=== PATIENT | male | born 1965 | race Caucasian/White ===

== ENCOUNTER 2020-07-01 12:40 | Emergency (ER) | payer SELFPAY ==
[2020-07-01 13:43] LABS: Absolute Lymphocytes (CBC) 2.1 K/uL (0.7-4.9); Basophils % 0.8 % (0-1.3); Lymphocytes % 26.7 % (15.3-44.8); MPV 8.7 fL (7.6-11.3); Protime INR 0.98; RBC Red Blood Cell Count 5.11 M/uL (4.33-5.43)
[2020-07-01 14:04] LABS: ALT/SGPT 32 U/L (12-78); AST/SGOT 17 U/L (15-37); Albumin 3.8 g/dL (3.4-5.0); Alkaline Phosphatase 83 U/L (45-117); BUN Blood Urea Nitrogen 10 mg/dL (7-18); Bicarbonate 29 mmol/L (21-32); Bilirubin Direct 0.2 mg/dL (0-0.2); Bilirubin Total 0.9 mg/dL (0.2-1.0); Glucose Level 97 mg/dL (74-106); Magnesium 2.2 mg/dL (1.8-2.4); NT PRO-BNP 142 pg/mL (<125); Potassium 4.2 mmol/L (3.5-5.1); Protein, Total 7.7 g/dL (6.4-8.2); Sodium Level 140 mmol/L (136-145); Troponin (Emerg Dept Use Only) < 0.02 ng/mL (0.0-0.045)
--- NOTE | 2020-07-01 14:19 | RAD REPORT ---
EXAM DESCRIPTION: CT - Head Brain Wo Cont - 07/01/2020 1:45 pm CLINICAL HISTORY: NUMBNESS COMPARISON: No comparisons TECHNIQUE: Axial 5 mm thick images of the head were obtained without IV contrast. All CT scans are performed using dose optimization technique as appropriate and may include automated exposure control or mA/KV adjustment according to patient size. FINDINGS: No intracranial hemorrhage, mass, edema or shift of mid-line structures. No acute infarcti on changes seen. No abnormal extra-axial fluid collections. Ventricles are normal. Mastoid air cells and visualized portions of the paranasal sinuses are clear. No acute bony findings. IMPRESSION: Negative non-contrast CT head examination. If the patient has continued, unexplained focal neurologic deficit suspicious for acute/subacute CVA, follow-up MRI imaging could be performed.
--- NOTE | 2020-07-01 14:33 | EDPHYS ---
Physician Documentation [facility] Name: Ricardo Hanson Jr Age: 54 yrs Sex: Male : 1965 Arrival Date: 07/01/2020 Time: 12:44 Bed 6 Private MD: ED Physician Armen Bedolla HPI: 07/01 14:36 This 54 yrs old Male presents to ER via Ambulatory with complaints of jr8 Numbness Of Arm. 14:36 The patient's problem is reported as paresthesias, in left upper extremity, in left jr8 lower extremity, in left side of face. Onset: The symptoms/episode began/occurred gradually, 2 week(s) ago. Duration: The episodes are intermittent. The symptoms are alleviated by nothing. The symptoms are aggravated by nothing. Associated signs and symptoms: The patient has no apparent associated signs or symptoms. Severity of symptoms: At their worst the symptoms were mild in the emergency department the symptoms have resolved. Patient's baseline: Neuro: alert and fully oriented, Motor: no deficits, Ambulation: walks without assistance, Speech: normal. The patient has not experienced similar symptoms in the past. The patient has not recently seen a physician. Stated that he has history of uncontrolled HTN and does not know if that is what it is or not . Historical: - Allergies: 12:50 No Known Allergies; hb - Immunization history:: Adult Immunizations up to date. - Social history:: Smoking status: Patient/guardian denies using tobacco, the patient reports quitting approximately 3 years ago. ROS: 14:36 Eyes: Negative for injury, pain, redness, and discharge, ENT: Negative for injury, jr8 pain, and discharge, Neck: Negative for injury, pain, and swelling, Cardiovascular: Negative for chest pain, palpitations, and edema, Respiratory: Negative for shortness of breath, cough, wheezing, and pleuritic chest pain, Abdomen/GI: Negative for abdominal pain, nausea, vomiting, diarrhea, and constipation, Back: Negative for injury and pain, MS/Extremity: Negative for injury and deformity, Skin: Negative for injury, rash, and discoloration. 14:36 Neuro: Positive for numbness. Exam: 14:36 Radiologist reports: No acute findings jr8 14:36 Eyes: Pupils equal round and reactive to light, extra-ocular motions intact. Lids and lashes normal. Conjunctiva and sclera are non-icteric and not injected. Cornea within normal limits. Periorbital areas with no swelling, redness, or edema. ENT: Nares patent. No nasal discharge, no septal abnormalities noted. Tympanic membranes are normal and external auditory canals are clear. Oropharynx with no redness, swelling, or masses, exudates, or evidence of obstruction, uvula midline. Mucous membranes moist. Neck: Trachea midline, no thyromegaly or masses palpated, and no cervical lymphadenopathy. Supple, full range of motion without nuchal rigidity, or vertebral point tenderness. No Meningismus. Cardiovascular: Regular rate and rhythm with a normal S1 and S2. No gallops, murmurs, or rubs. Normal PMI, no JVD. No pulse deficits. Respiratory: Lungs have equal breath sounds bilaterally, clear to auscultation and percussion. No rales, rhonchi or wheezes noted. No increased work of breathing, no retractions or nasal flaring. Abdomen/GI: Soft, non-tender, with normal bowel sounds. No distension or tympany. No guarding or rebound. No evidence of tenderness throughout. Back: No spinal tenderness. No costovertebral tenderness. Full range of motion. Skin: Warm, dry with normal turgor. Normal color with no rashes, no lesions, and no evidence of cellulitis. MS/ Extremity: Pulses equal, no cyanosis. Neurovascular intact. Full, normal range of motion. Neuro: Awake and alert, GCS 15, oriented to person, place, time, and situation. Cranial nerves II-XII grossly intact. Motor strength 5/5 in all extremities. Sensory grossly intact. Cerebellar exam normal. Normal gait. Vital Signs: 12:48 BP 183 / 94; Pulse 73; Resp 16; Temp 99.2(TE); Pulse Ox 100% on R/A; Weight 79.38 kg; hb Height 6 ft. 2 in. (187.96 cm); Pain 0/10; 14:53 BP 156 / 101; Pulse 64; Resp 18; Pulse Ox 100% on R/A; jr10 12:48 Body Mass Index 22.47 (79.38 kg, 187.96 cm) hb NIH Stroke Scale Scores: 13:35 NIHSS Score: 0 jr10 MDM: 13:20 Patient medically screened. jr8 14:31 Data reviewed: vital signs, nurses notes, lab test result(s), EKG, radiologic studies, jr8 CT scan, plain films, and as a result, I will discharge patient. Data interpreted: Pulse oximetry: on room air is 100 %. Interpretation: normal. Counseling: I had a detailed discussion with the patient and/or guardian regarding: the historical points, exam findings, and any diagnostic results supporting the discharge/admit diagnosis, lab results, radiology results, the need for outpatient follow up, a family practitioner, to return to the emergency department if symptoms worsen or persist or if there are any questions or concerns that arise at home. 07/01 13:17 Order name: Basic Metabolic Panel; Complete Time: 14:31 hb 07/01 13:17 Order name: CBC with Diff; Complete Time: 14:03 hb 07/01 13:17 Order name: LFT's; Complete Time: 14:31 hb 07/01 13:17 Order name: Magnesium; Complete Time: 14:31 hb 07/01 13:17 Order name: NT PRO-BNP; Complete Time: 14:31 hb 07/01 13:17 Order name: PT-INR; Complete Time: 14:03 hb 07/01 13:17 Order name: CT Head Brain wo Cont; Complete Time: 14:31 hb 07/01 13:17 Order name: Troponin (emerg Dept Use Only); Complete Time: 14:31 hb 07/01 13:17 Order name: XRAY Chest (1 view); Complete Time: 14:38 hb 07/01 13:17 Order name: EKG; Complete Time: 13:18 hb 07/01 13:17 Order name: Cardiac monitoring; Complete Time: 14:15 hb 07/01 13:17 Order name: EKG - Nurse/Tech; Complete Time: 14:15 hb 07/01 13:17 Order name: IV Saline Lock; Complete Time: 13:32 hb 07/01 13:17 Order name: Labs collected and sent; Complete Time: 13:32 hb 07/01 13:17 Order name: O2 Per Protocol; Complete Time: 13:20 hb 07/01 13:17 Order name: O2 Sat Monitoring; Complete Time: 13:20 hb Administered Medications: No medications were administered Disposition: 17:07 Co-signature as Attending Physician, Armen Bedolla MD I agree with the assessment and kdr plan of care. Disposition: 07/01/20 14:33 Discharged to Home. Impression: Paresthesia of skin, Essential (primary) hypertension. - Condition is Stable. - Discharge Instructions: Hypertension, Paresthesia. - Prescriptions for Lisinopril 20 mg Oral Tablet - take 1 tablet by ORAL route once daily; 20 tablet. - Medication Reconciliation Form, Thank You Letter, Antibiotic Education, Prescription Opioid Use form. - Follow up: Private Physician; When: 2 - 3 days; Reason: Recheck today's complaints, Continuance of care, Re-evaluation by your physician. - Problem is new. - Symptoms have improved. NIH Stroke Scale - NIH Stroke Score Date: 07/01/2020 Time: 13:35 Total Score = 0 1a. Level of Consciousness (LOC) - 0(Alert) 1b. Level of Consciousness (LOC) (Year \T\ Age) - 0(Both) 1c. LOC Commands (Open \T\ Closes Eyes/Yarn Comber) - 0(Both) 2. Best Gaze (Lateral Gaze Paresis) - 0(Normal) 3. Visual Field Loss - 0(No visual loss) 4. Facial Palsy - 0(Normal) 5a. Left Arm: Motor (10-second hold) - 0(No drift) 5b. Right Arm: Motor (10-second hold) - 0(No drift) 6a. Left Leg: Motor (5-second hold - always test supine) - 0(No drift) 6b. Right Leg: Motor (5-second hold - always test supine) - 0(No drift) 7. Limb Ataxia (finger/nose \T\ heel/chand - test with eyes open) - 0(Absent) 8. Sensory Loss (pinprick arms/legs/face) - 0(Normal) 9. Best Language: Aphasia (description/naming/reading) - 0(No aphasia) 10. Dysarthria (speech clarity - read or repeat words) - 0(Normal) 11. Extinction and Inattention (visual/tactile/auditory/spatial/personal) - 0(No abnormality) Initials: jr10 Signatures: Dispatcher [employer] EDMS Armen Bedolla MD MD kdr Roszak, Josh, PA PA jr8 Jessica Stephens RN RN Kallie Barlow RN RN Corrections: (The following items were deleted from the chart) 15:12 14:33 07/01/2020 14:33 Discharged to Home. Impression: Paresthesia of skin; ph Essential (primary) hypertension. Condition is Stable. Forms are Medication Reconciliation Form, Thank You Letter, Antibiotic Education, Prescription Opioid Use. Follow up: Private Physician; When: 2 - 3 days; Reason: Recheck today's complaints, Continuance of care, Re-evaluation by your physician. Problem is new. Symptoms have improved. jr8
--- NOTE | 2020-07-01 14:33 | ER ---
Nurse's Notes [facility] Name: Ricardo Hanson Jr Age: 54 yrs Sex: Male : 1965 Arrival Date: 07/01/2020 Time: 12:44 Bed 6 Private MD: Diagnosis: Paresthesia of skin;Essential (primary) hypertension Presentation: 07/01 12:48 Chief complaint: Intermittent left sided numbness and tingling from the top of his head hb to the left foot x 1 week. VAN NEGATIVE. Coronavirus screen: At this time, the client does not indicate any symptoms associated with coronavirus-19. Ebola Screen: No symptoms or risks identified at this time. Initial Sepsis Screen: Does the patient meet any 2 criteria? No. Patient's initial sepsis screen is negative. Does the patient have a suspected source of infection? No. Patient's initial sepsis screen is negative. Risk Assessment: Do you want to hurt yourself or someone else? Patient reports no desire to harm self or others. Onset of symptoms was June 24, 2020. 12:48 Method Of Arrival: Ambulatory hb 12:48 Acuity: GABRIELLE 3 hb Historical: - Allergies: 12:50 No Known Allergies; hb - Immunization history:: Adult Immunizations up to date. - Social history:: Smoking status: Patient/guardian denies using tobacco, the patient reports quitting approximately 3 years ago. Screenin:18 Abuse screen: Denies threats or abuse. Denies injuries from another. Nutritional hb screening: No deficits noted. Tuberculosis screening: No symptoms or risk factors identified. Fall Risk None identified. 13:35 VAN Screening: Arm Drift: Patient shows no arm weakness. Visual Disturbance: No visual jr10 disturbance noted. Aphasia: No aphasia noted. Neglect: No neglect noted. Assessment: 13:33 General: Appears in no apparent distress. Behavior is calm, cooperative, appropriate jr10 for age. Pain: Denies pain. Neuro: No deficits noted. Level of Consciousness is awake, alert, obeys commands, Oriented to person, place, time, situation, Appropriate for age Plisse Machine Operator Helper are equal bilaterally Moves all extremities. Gait is steady, Speech is normal, Facial symmetry appears normal, Pupils are PERRLA, Intact pt reports intermittent tingling to entire left side of body x1 week, states that episodes occur randomly and resolve on their own. Pt denies any cp, sob, dizziness, visual changes, Syed associated with tingling. Pt denies any s/ at present, states last episode was last night. Cardiovascular: No deficits noted. Denies chest pain, Patient's skin is warm and dry. Pulses are all present. Edema is absent. Rhythm is regular. Respiratory: No deficits noted. Airway is patent Respiratory effort is even, unlabored, Respiratory pattern is regular, symmetrical, Breath sounds are clear bilaterally. GI: No deficits noted. No signs and/or symptoms were reported involving the gastrointestinal system. Patient currently denies nausea. : No deficits noted. No signs and/or symptoms were reported regarding the genitourinary system. EENT: No deficits noted. No signs and/or symptoms were reported regarding the EENT system. Derm: No deficits noted. No signs and/or symptoms reported regarding the dermatologic system. Musculoskeletal: No deficits noted. No signs and/or symptoms reported regarding the musculoskeletal system. 15:08 Reassessment: Patient appears in no apparent distress at this time. Patient and/or ph family updated on plan of care and expected duration. Pain level reassessed. Patient is alert, oriented x 3, equal unlabored respirations, skin warm/dry/pink. Pt d/c home w/ prescriptions. Vital Signs: 12:48 BP 183 / 94; Pulse 73; Resp 16; Temp 99.2(TE); Pulse Ox 100% on R/A; Weight 79.38 kg; hb Height 6 ft. 2 in. (187.96 cm); Pain 0/10; 14:53 BP 156 / 101; Pulse 64; Resp 18; Pulse Ox 100% on R/A; jr10 12:48 Body Mass Index 22.47 (79.38 kg, 187.96 cm) hb NIH Stroke Scale Scores: 13:35 NIHSS Score: 0 10 ED Course: 12:44 Patient arrived in ED. mr 12:50 Triage completed. hb 12:50 Arm band placed on. hb 13:18 Tarik Brito PA is PHCP. hb 13:19 Arely Garcia, MIMA is Primary Nurse. jr 13:33 Patient has correct armband on for positive identification. Bed in low position. Call jr10 light in reach. Side rails up X2. nuclear monitoring technician on. Pulse ox on. NIBP on. 13:33 No provider procedures requiring assistance completed. Inserted saline lock: 20 gauge jr10 in right antecubital area, using aseptic technique. IV is patent, is intact, with good blood return, Flushed. 13:45 CT Head Brain wo Cont In Process Unspecified. EDMS 13:55 XRAY Chest (1 view) In Process Unspecified. EDMS 14:33 Armen Bedolla MD is Attending Physician. jr8 15:12 IV discontinued, intact, bleeding controlled, No redness/swelling at site. Pressure ph dressing applied. Administered Medications: No medications were administered Outcome: 14:33 Discharge ordered by . jr8 15:08 Discharged to home ambulatory. ph 15:08 Condition: good 15:08 Discharge instructions given to patient, Instructed on discharge instructions, follow up and referral plans. medication usage, Demonstrated understanding of instructions, follow-up care, medications, Prescriptions given X 1. 15:12 Patient left the ED. ph NIH Stroke Scale - NIH Stroke Score Date: 07/01/2020 Time: 13:35 Total Score = 0 1a. Level of Consciousness (LOC) - 0(Alert) 1b. Level of Consciousness (LOC) (Year \T\ Age) - 0(Both) 1c. LOC Commands (Open \T\ Closes Eyes/Motion Picture Set Worker) - 0(Both) 2. Best Gaze (Lateral Gaze Paresis) - 0(Normal) 3. Visual Field Loss - 0(No visual loss) 4. Facial Palsy - 0(Normal) 5a. Left Arm: Motor (10-second hold) - 0(No drift) 5b. Right Arm: Motor (10-second hold) - 0(No drift) 6a. Left Leg: Motor (5-second hold - always test supine) - 0(No drift) 6b. Right Leg: Motor (5-second hold - always test supine) - 0(No drift) 7. Limb Ataxia (finger/nose \T\ heel/chand - test with eyes open) - 0(Absent) 8. Sensory Loss (pinprick arms/legs/face) - 0(Normal) 9. Best Language: Aphasia (description/naming/reading) - 0(No aphasia) 10. Dysarthria (speech clarity - read or repeat words) - 0(Normal) 11. Extinction and Inattention (visual/tactile/auditory/spatial/personal) - 0(No abnormality) Initials: jr10 Signatures: Dispatcher [employer] JARRODMS GarciaMachelle mr Tarik Brito PA PA jr8 Jessica Stephens RN RN ph Baxter, Heather, RN RN Arely Garcia RN RN jr10
--- NOTE | 2020-07-01 14:34 | RAD REPORT ---
EXAM DESCRIPTION: RAD - Chest Single View - 07/01/2020 1:55 pm CLINICAL HISTORY: CHEST PAIN COMPARISON: Portable February 2013 TECHNIQUE: AP portable chest image was obtained 07/01/2020 1:55 pm . FINDINGS: Lungs are clear. Interstitial pattern not clearly different from comparison. No new hilar mass or lymphadenopathy. Heart and vasculature are normal. No measurable pleural effusion and no pneu mothorax. No acute bony abnormality seen. No acute aortic findings suspected. IMPRESSION: No acute cardiopulmonary process. No significant change from comparison.
--- NOTE | 2020-07-02 11:12 | EKG ---
Test Date: 2020-07-01 Test Time: 13:52:38 Production Clerks Supervisor: DESMOND MEASUREMENT RESULTS: Intervals: Rate: 64 IN: 144 QRSD: 102 QT: 400 QTc: 412 [place]: P: 50 IN: 144 QRS: 64 T: 49 INTERPRETIVE STATEMENTS: Normal sinus rhythm Normal ECG Compared to ECG 03/28/2013 12:53:27 Incomplete right bundle-branch block no longer present Electronically Signed On 07-02-20 11:10:24 CDT by Vijay Patel
[2020-07-03 07:59] VITALS: TEMP 99.2; O2SAT 100
[2020-07-03 08:00] VITALS: BP 156/101
== END 2020-07-01 15:12 | disposition home or self-care (01) ==
LOC: ER 12:40
DX: I10 Essential (primary) hypertension (principal)
CPT/HCPCS: 36415; 70450; 71045; 80048; 80076; 83735; 83880; 84484; 85025; 85610; 93005; 99284

== ENCOUNTER 2024-09-24 17:06 | Emergency (ER) | payer SELFPAY ==
[2024-09-24] MEDS ORDERED: Calcium Chloride 10% INJ SYR IV ONE (17:07)
[2024-09-24] MEDS ORDERED: EPINEPHrine 1 MG/10 ML SYR IV ONE (17:07)
[2024-09-24] MEDS ORDERED: NA CHLORIDE 0.9% 1,000 ML IV ONE (17:07)
[2024-09-24] MEDS ORDERED: LIDOCAINE 100 MG/5 ML SYRINGE IV ONE (17:07)
[2024-09-24] MEDS ORDERED: D5W 250 ML IV ONE (17:07)
[2024-09-24] MEDS ORDERED: NALOXONE HCL 2 MG/2 ML VIAL IV ONE (17:07)
[2024-09-24] MEDS ORDERED: AMIODARONE HCL 150 MG/3 ML INJ IV ONE (17:07)
--- OUTSIDE RECORDS SUMMARY | 2024-09-24 17:10 | XMS REPORT | Continuity of Care Document ---
Author Name Unknown Address [address] [facility] [address] [place] [address] [facility] Address [address] [facility] [address] [place] [address] Care Team Providers Care Dialysis Social Worker Name Role Phone Fabio Pippa TUBBS Primary Care Physician Chalo LUCERO, Reji Wade Attending Clinician [phone] Ayana Hargrove MD Attending Clinici an Heidy Quiñones MD Attending Clinician + Reji Dykes DO Attending Clinician [phone] Abisai Camacho MD Attending Clinician [phone] Beata LUCERO, Shalini Norton Attending Clinician [phone] ABISAI CAMACHO Attending Clinician Unavailable Natalie Perez Attending Clinician Unavaila ble AYANA HARGROVE Attending Clinician Unavailable Heidy Quiñones MD Admitting Clinician + HEIDY QUIÑONES Admitting Clinician Unav ailable AYANA HARGROVE Admitting Clinician Unavailable Problems Condition Name Condition Details Condition Category Status Onset Date Resolution Date Last Treatment Date Treating Clinician Comments Source Ischemic cardiomyop athy Ischemic cardiomyop athy Disease Active 2023-10 00:00: 00 Huang Reaves CHF (congestiv e heart failure) (CMS/HCC) CHF (congestiv e heart failure) (CMS/HCC) Disease Active 2023-10 00:00: 00 Huang Reaves Thrombocyt openia Thrombocyt openia Disease Active 2023-10 00:00: 00 Huang Reaves Paroxysmal atrial fibrillati on (CMS/HCC) Paroxysmal atrial fibrillati on (CMS/HCC) Disease Active 2023-10 00:00: 00 Huang Reaves Acute systolic congestive heart failure (CMS/HCC) Acute systolic congestive heart failure (CMS/HCC) Disease Active 2023-10 00:00: 00 Huang Reaves 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 angina pectoris Disease Active 2023-10 00:00: 00 Huang Reaves NSTEMI (non-ST elevated myocardial infarction ) (CMS/HCC) NSTEMI (non-ST elevated myocardial infarction ) (CMS/HCC) Disease Active 2023-10 00:00: 00 Huang Reaves HTN (hypertens ion) HTN (hypertens ion) Disease Active 2023-10 00:00: 00 Huang Reaves HLD (hyperlipi demia) HLD (hyperlipi demia) Disease Active 2023-10 00:00: 00 Huang Reaves Cardiogeni c shock Cardiogeni c shock Disease Resolve d 2024-09-21 00:00:00 2024-09-21 10:57:00 Huang Reaves Social History Social Habit Start Date Stop Date Quantity Comments Source Gender identity Corey jose Reaves Sexual orientation [facility] Reaves Tobacco use and exposure 2024-09-11 00:00:00 2024-09-11 00:00:00 Smokeless tobacco non-user [facility] Torey Reaves History of Social function 2024-09-11 00:00:00 2024-09-11 00:00:00 [facility] Torey Reaves Smoking Status Start Date Stop Date Source Never smoked tobacco Huang Reaves Medications Ordered Medication Name Filled Medication Name Start Date Stop Date Current Medication? Ordering Clinician Indication Dosage Frequency Signature (SIG) Comments Components Source aspirin EC 81 MG EC tablet aspirin EC 81 MG EC tablet 2023-10 00:00: 00 09-22 23:59 :00 No 81mg QD Take 1 tablet by mouth 1 time each day. Huang Reaves lisinopril 2.5 MG tablet lisinopril 2.5 MG tablet 2023-10 00:00: 00 09-22 23:59 :00 No 2.5mg QD Take 1 tablet by mouth 1 time each day. Huang Reaves prasugrel (Effient) 10 MG tablet prasugrel (Effient) 10 MG tablet 2023-10 00:00: 00 10-22 23:59 :00 No 10mg QD Take 1 tablet by mouth 1 time each day. Hunag Reaves lisinopril tablet 2.5 mg lisinopril tablet 2.5 mg 2023-10 09:00: 00 Yes 2.5mg QD 2.5 mg, Oral, Daily, First dose on 09/21/24 at 0900, Hold for SBP < 90 mmHg Huang Reaves famotidine (Pepcid) 20 MG tablet famotidine (Pepcid) 20 MG tablet 2023-10 00:00: 00 09-21 23:59 :00 No 20mg Q.5D Take 1 tablet by mouth in the morning and 1 tablet in the evening. Huang Reaves atorvastati n (Lipitor) 80 MG tablet atorvastati n (Lipitor) 80 MG tablet 2023-10 00:00: 00 10-21 23:59 :00 No 80mg Take 1 tablet by mouth at bedtime. Huang Reaves metoprolol tartrate (Lopressor) 25 MG tablet metoprolol tartrate (Lopressor) 25 MG tablet 2023-10 00:00: 00 10-21 23:59 :00 No 12.5mg Q.5D Take 0.5 tablets by mouth in the morning and 0.5 tablets before bedtime. Huang Reaves famotidine (Pepcid) tablet 20 mg famotidine (Pepcid) tablet 20 mg 2023-10 17:00: 00 Yes 20mg Q.5D 20 mg, Oral, 2 times daily, First dose on 09/20/24 at 1700 Huang Reaves prasugrel (Effient) tablet 10 mg prasugrel (Effient) tablet 10 mg 2023-10 09:00: 00 Yes 10mg QD 10 mg, Oral, Daily, First dose on 09/20/24 at 0900, [facility] Huang Reaves ALPRAZolam (Xanax) tablet 0.25 mg ALPRAZolam (Xanax) tablet 0.25 mg 2023-10 08:29: 24 Yes .25mg Q.5D 0.25 mg, Oral, 2 times daily PRN, anxiety, Starting on Citlali 09/18/24 at 0829 Huang Reaves busPIRone (Buspar) tablet 5 mg busPIRone (Buspar) tablet 5 mg 2023-10 15:00: 00 Yes 5mg [id number] 3D 5 mg, Oral, 3 times daily, First dose on Sun09/17/24 at 1500 Huang Reaves LORazepam (Ativan) injection 0.5 mg LORazepam (Ativan) injection 0.5 mg 2023-10 15:00: 00 09-17 15:30 :00 No .5mg 0.5 mg, Intravenou s, Once, On Sun09/17/24 at 1515, For 1 dose Huang Reaves melatonin tablet 6 mg melatonin tablet 6 mg 2023-10 14:15: 05 Yes 6mg QD 6 mg, Oral, Nightly PRN, sleep, Starting on Sun09/17/24 at 1415 Huang Reaves HYDROcodone -acetaminop hen ([place]) 5-325 MG per tablet 1 tablet HYDROcodone -acetaminop hen ([place]) 5-325 MG per tablet 1 tablet 2023-10 14:11: 38 Yes 1{tbl} Q6H 1 tablet, Oral, Every 6 hours PRN, moderate pain (4-6), Starting on Sun09/17/24 at 1411 Huang Reaves sodium chloride (NS) 0.9 % flush 10 mL sodium chloride (NS) 0.9 % flush 10 mL 2023-10 10:45: 00 Yes 10mL Q.5D 10 mL, Intravenou s, Every 12 hours scheduled, First dose on Sun09/17/24 at 1045, [facility], Administer at least once every 12 hours Huang Reaves sodium bicarbonate 25 mEq in dextrose 5 % 1,000 mL infusion sodium bicarbonate 25 mEq in dextrose 5 % 1,000 mL infusion 2023-10 10:45: 00 09-19 19:21 :21 No .1mL/h 0.1-40 mL/hr, Intravenou s, Continuous , Starting on Sun09/17/24 at 1045, Recovery [facility] On Unit, Impella Device Non-hepari n Purge Solution. For use as alternativ e purge solution in patients with Impella device where heparin may be contraindi cated (heparin-i nduced thrombocyt openia, heparin allergy, coagulopat hy, bleeding). If purge flow rate is > 25 mL/hr, increase dextrose concentrat ion in purge solution. System will continue to adjust purge flow rate. If purge flow rate 5 - 25 mL/hr, therapeuti c range - no change. If purge flow rate < 5 mL/hr, contact physician for further instructio ns. Huang Reaves clopidogrel (Plavix) tablet 75 mg clopidogrel (Plavix) tablet 75 mg 2023-10 09:00: 00 09-19 19:37 :46 No 75mg QD 75 mg, Oral, Daily, First dose on Sun09/17/24 at 0900 Huang Reaves clopidogrel (Plavix) tablet 600 mg clopidogrel (Plavix) tablet 600 mg 2023-10 13:30: 00 09-16 14:02 :00 No 600mg 600 mg, Oral, Once, On Sun09/16/24 at 1330, For 1 dose Huang Reaves gabapentin (Neurontin) capsule 300 mg gabapentin (Neurontin) capsule 300 mg 2023-10 08:00: 00 09-16 07:43 :00 No 300mg 300 mg, Oral, Once, On Sun09/16/24 at 0800, For 1 dose Huang Reaves acetaminoph en (Tylenol) tablet 1,000 mg acetaminoph en (Tylenol) tablet 1,000 mg 2023-10 08:00: 00 09-16 07:43 :00 No 1000mg 1,000 mg, Oral, Once, On Sun09/16/24 at 0800, For 1 dose, Max acetaminop hen = 4000mg/day (4gm/day) Huang Reaves metoprolol tartrate (Lopressor) tablet 12.5 mg metoprolol tartrate (Lopressor) tablet 12.5 mg 2023-10 21:00: 00 Yes 12.5mg Q.5D 12.5 mg, Oral, Every 12 hours scheduled, First dose on Sun09/15/24 at 2100 Huang Reaves insulin regular (Myxredlin) 100-0.9 UT/100ML-% infusion (premix) insulin regular (Myxredlin) 100-0.9 UT/100ML-% infusion (premix) 2023-10 12:45: 00 Yes .01U/h 0.01 Units/hr (0.01 mL/hr), Intravenou s, Continuous , Starting on Sun09/15/24 at 1245, On Hold for OR BUD: 30 days at room temperatur e Huang Reaves atorvastati n (Lipitor) tablet 80 mg atorvastati n (Lipitor) tablet 80 mg 2023-10 21:00: 00 Yes 80mg 80 mg, Oral, Nightly, First dose (after last modificati on) on Sun09/13/24 at 2100 Huang Reaves technetium Tc 99m sestamibi (Cardiolite ) radio-isoto pe injection 32 millicurie technetium Tc 99m sestamibi (Cardiolite ) radio-isoto pe injection 32 millicurie 2023-10 11:15: 00 09-12 11:15 :00 No 32mCi 32 millicurie , Intravenou s, Once, On Sun09/12/24 at 1115, For 1 dose Huang Reaves technetium Tc 99m sestamibi (Cardiolite ) radio-isoto pe injection 11 millicurie technetium Tc 99m sestamibi (Cardiolite ) radio-isoto pe injection 11 millicurie 2023-10 08:45: 00 09-12 08:53 :00 No 11mCi 11 millicurie , Intravenou s, Once, On Sun09/12/24 at 0900, For 1 dose Huang Reaves docusate sodium (Colace) capsule 100 mg docusate sodium (Colace) capsule 100 mg 2023-10 17:00: 00 Yes 100mg Q.5D 100 mg, Oral, 2 times daily, First dose on Sun09/11/24 at 1700, Stool softener. Hold for loose stools. Huang Lema Epic levothyroxi ne (Unithroid) 50 MCG tablet levothyroxi ne (Unithroid) 50 MCG tablet 2023-10 16:25: 02 Yes Take by mouth in the morning. Take before meals. Huang Lema Epic dextrose 10 % infusion 125 mL dextrose 10 % infusion 125 mL 2023-10 16:16: 34 Yes 125mL 125 mL, Intravenou s, at 999 mL/hr, As needed, Give 125 mL (12.5 gm) IV PRN for BG 51-69 mg/dL, Starting on Sun09/11/24 at 1616, Administer at rate 999 mL/hr Huang Lema Epic dextrose 10 % infusion 250 mL dextrose 10 % infusion 250 mL 2023-10 16:16: 30 Yes 250mL 250 mL, Intravenou s, at 999 mL/hr, As needed, Give 250 mL (25 gm) IV PRN for BG </= 50 mg/dL, Starting on Sun09/11/24 at 1616, Administer at rate 999 mL/hr Huang Lema Epic sodium chloride (NS) 0.9 % flush 10 mL sodium chloride (NS) 0.9 % flush 10 mL 2023-10 16:15: 00 09-17 19:13 :08 No 10mL Q12H 10 mL, Intravenou s, Every 12 hours, First dose on Sun09/11/24 at 1615, Administer at least once every 12 hours Huang Lema Epic diphenhydrA MINE (BENADryl) liquid 12.5 mg diphenhydrA MINE (BENADryl) liquid 12.5 mg 2023-10 16:12: 22 Yes 12.5mg Q6H Huang Lema Epic ondansetron (Zofran) injection 4 mg ondansetron (Zofran) injection 4 mg 2023-10 16:12: 20 Yes 4mg Q8H Huang Lema Epic sennosides (Senokot) tablet 17.2 mg sennosides (Senokot) tablet 17.2 mg 2023-10 16:12: 18 Yes 2{tbl} QD Huang Lema Epic glucagon injection 1 mg glucagon injection 1 mg 2023-10 16:11: 52 Yes 1mg Huang Lema Epic calcium gluconate in NaCl 100mL IVPB 2 g calcium gluconate in NaCl 100mL IVPB 2 g 2023-10 16:11: 52 Yes 2g Huang Reaves magnesium oxide (Mag-Ox) tablet 800 mg magnesium oxide (Mag-Ox) tablet 800 mg 2023-10 16:11: 52 Yes 800mg 800 mg, Oral, As needed, Abnormal Lab Result, For NON-ICU Patients Only., Starting on Citlali 09/11/24 at 1611, For Magnesium 1.8 - 2.0 mg/dL:? Replace with Magnesium 800 mg PO x 1 dose. For Magnesium 1.5 - 1.7 mg/dL: Replace with Magnesium 800 mg PO every 4 hours x 2 doses. For Magnesium 1.1 - 1.4 mg/dL:? Replace with Magnesium 800 mg PO every 4 hours x 3 doses.? Recheck Magnesium level 4 hours after the end of replacemen t.Notify MD if Magnesium level is < 1.1 mg/dL prior to replacemen t.*Use PO or NJ administra tion unless patient is first 12 hours post-op, active GI bleed, acute arrhythmia s, ischemic bowel or NPO. *DO NOT replace if patient is on dialysis, temperatur e < 35 Celsius, or serum creatinine > 2.0 mg/dL or GFR < 45 mL/min. Huang Lema Epic magnesium sulfate IVPB 4 g magnesium sulfate IVPB 4 g 2023-10 16:11: 52 Yes 4g Huang Lema Epic magnesium sulfate IVPB 2 g magnesium sulfate IVPB 2 g 2023-10 16:11: 52 Yes 2g Huang Reaves magnesium sulfate in D5W IVPB 1 g magnesium sulfate in D5W IVPB 1 g 2023-10 16:11: 52 Yes 1g Huang Lema Epic potassium chloride IVPB 10 mEq potassium chloride IVPB 10 mEq 2023-10 16:11: 51 Yes 10meq Huang Bullardann Epic Potassium chloride solution 20 mEq Potassium chloride solution 20 mEq 2023-10 16:11: 51 Yes 20meq Huang Lema Epic potassium chloride CR (Klor-Con M20) ER tablet 40 mEq potassium chloride CR (Klor-Con M20) ER tablet 40 mEq 2023-10 16:11: 51 Yes 40meq 40 mEq, Oral, As needed, Abnormal Lab Result, NON-ICU Patients Only, Starting on Citlali 09/11/24 at 1611, Evaluate Potassium and Phosphorou s level prior to replacemen t. Potassium replacemen t; phosphorou s > 2.4 mg/dL or phosphorou s level not available: For K = 3.5 - 3.9 mEq/L: Replace with KCL 20 mEq. Recheck Potassium with next scheduled lab. For K = 3.1 - 3.4 mEq/L: Replace with KCL 40 mEq.? Recheck Potassium 4 hours after replacemen t. Potassium and Phosphorou s Replacemen t: For K = 3.5 - 4.5 mEq/L AND Phosphorou s 2 - 2.4 mg/dL:? Replace with 2 packets of Potassium phosphate/ sodium phosphate oral powder x 1 dose. For K = 3.5 - 4.5 mEq/L AND Phosphorou s 1.6 - 1.9 mg/dL:? Replace with 2 packets of Potassium phosphate/ sodium phosphate oral powder Q4H x 2 doses. For K = 3.1 - 3.4 mEq/L AND Phosphorou s 2 - 2.4 mg/dL: Replace with KCL 20 mEq PO/NJ AND Potassium Phosphate 15 mMol IVPB over 4 hours. For K = 3.1 - 3.4 mEq/L AND Phosphorou s 1.6 - 1.9 mg/dL: Replace with Potassium Phosphate 30 mMol IVPB over 4 hours. Recheck Potassium and Phosphorou s levels 4 hours after replacemen t complete.N whitney LUCERO for K < 3.1 mEq/L or Phosphorou s < 1.6 mg/dL prior to replacemen t. *Use PO or NJ administra tion unless patient is first 12 hours post-op, active GI bleed, acute arrhythmia s, ischemic bowel or NPO. Do Not Crush the ER tablets. DO NOT replace if patient is on dialysis, temperatur e < 35 Celsius, or serum creatinine > 2.0 mg/dL or GFR < 45 mL/min. DO NOT CRUSH.? For patients able to take medication s orally or via feeding tube >/= 14 [place], may dissolve each 20 mEq tablet in 4 oz of water.? Allow about 2 minutes for the tablets to disintegra te.? Stir before giving to prepare slurry and administer .? Please exclude patient's with feeding tube less than 14 [place] (Dobhoff, J-tube, etc) and pediatric and patients. Do not crush or chew. Huang Lema Epic potassium chloride CR (Klor-Con M20) ER tablet 20 mEq potassium chloride CR (Klor-Con M20) ER tablet 20 mEq 2023-10 16:11: 51 Yes 20meq Memoria malcolm Lema Epic naloxone (Narcan) injection 0.04 mg naloxone (Narcan) injection 0.04 mg 2023-10 16:11: 51 Yes .04mg Dmitryoria malcolm Lema Epic regadenoson (Lexiscan) injection 0.4 mg regadenoson (Lexiscan) injection 0.4 mg 2023-10 14:01: 49 09-12 13:58 :00 No .4mg 0.4 mg, Intravenou s, Oncall, Starting on Sun09/11/24 at 1401, For 1 dose, To be administer ed during stress test. Dmitryoria malcolm Lema Epic fluticasone (Flonase) nasal spray 2 spray fluticasone (Flonase) nasal spray 2 spray 2023-10 10:30: 00 Yes 2{spray } QD 2 spray, Each Nostril, Daily, First dose on Citlali 09/11/24 at 1030, Shake gently. Before first use, prime pump (press 6 times until fine spray appears). After use, clean tip and replace cap. Memoria l Torey Epic acetaminoph en (Tylenol) tablet 650 mg acetaminoph en (Tylenol) tablet 650 mg 2023-10 22:37: 30 Yes 650mg Q6H 650 mg, Oral, Every 6 hours PRN, mild pain (1-3), Starting on Sun09/10/24 at 2237, Max acetaminop hen = 4000mg/day (4gm/day) Huang Lema Epic sulfur hexafluorid e lipid-type A microsphere s (Lumason) 60.7-25 MG Injectable suspension 2 mL sulfur hexafluorid e lipid-type A microsphere s (Lumason) 60.7-25 MG Injectable suspension 2 mL 2023-10 21:47: 41 09-10 21:47 :00 No 2mL 2 mL, Intravenou s, Once in imaging, Starting on Sun09/10/24 at 2147, For 1 dose, Reconstitu te with 5 mL of PF NS only using provided Mini-Ranjit ; shake vigorously for 20 sec until a homogenous white milky suspension forms. Use immediatel y. May repeat once during procedure. Huang Reaves losartan (Cozaar) tablet 100 mg losartan (Cozaar) tablet 100 mg 2023-10 20:00: 00 09-13 09:33 :47 No 100mg QD 100 mg, Oral, Daily, First dose on Sun09/10/24 at 1999, On hold since Sun09/11/2024 at 1015 until manually unheld Huang Reaves hydroCHLORO thiazide tablet 12.5 mg hydroCHLORO thiazide tablet 12.5 mg 2023-10 20:00: 00 09-13 09:33 :47 No 12.5mg QD 12.5 mg, Oral, Daily, First dose on Sun09/10/24 at 1999, On hold since Sun09/11/2024 at 1015 until manually unheld Huang Reaves amLODIPine (Norvasc) tablet 10 mg amLODIPine (Norvasc) tablet 10 mg 2023-10 20:00: 00 09-13 09:33 :47 No 10mg QD 10 mg, Oral, Daily, First dose on Sun09/10/24 at 2000, On hold since Citlali 09/11/2024 at 1015 until manually unheld Huang Reaves atorvastati n (Lipitor) tablet 20 mg atorvastati n (Lipitor) tablet 20 mg 2023-10 20:00: 00 09-12 11:57 :56 No 20mg QD 20 mg, Oral, Daily, First dose on Sun09/10/24 at 2000 Huang Reaves aspirin EC EC tablet 81 mg aspirin EC EC tablet 81 mg 2023-10 17:45: 00 Yes 81mg QD [Order 1 Start] Name: aspirin EC EC tablet 81 mg Signed Summary: 81 mg, Oral, Daily, First dose on Sun09/10/24 at 1745, Maintenanc e dose. Do not crush, chew, or split. [Order 1 End] [Order 2 Start] Name: aspirin suppositor y 300 mg Signed Summary: 300 mg, Rectal, Daily, First dose on Sun09/10/24 at 1745, Maintenanc e dose. Administer if patient is unable to take aspirin orally or via feeding tube. [Order 2 End] Huang Reaves sodium chloride (NS) 0.9 % flush 10 mL sodium chloride (NS) 0.9 % flush 10 mL 2023-10 17:45: 00 09-17 19:13 :08 No 10mL Q12H 10 mL, Intravenou s, Every 12 hours, First dose on Sun09/10/24 at 1745, Administer at least once every 12 hours Huang Reaves nitroglycer in (Nitrostat) SL tablet 0.4 mg nitroglycer in (Nitrostat) SL tablet 0.4 mg 2023-10 17:33: 03 Yes .4mg 0.4 mg, Sublingual , Every 5 min PRN, chest pain, Starting on Sun09/10/24 at 1733, For 3 doses, May administer up to 3 doses per episode. Huang Lema Epic sodium chloride 0.9 % infusion 250 mL sodium chloride 0.9 % infusion 250 mL 2023-10 17:33: 03 Yes 250mL 250 mL, Intravenou s, As needed, For antibiotic flush to clear line, replace bag every 24 hours., Starting on Sun09/10/24 at 1733 Huang Reaves sodium chloride (NS) 0.9 % flush 10 mL sodium chloride (NS) 0.9 % flush 10 mL 2023-10 17:33: 03 Yes 10mL 10 mL, Intravenou s, As needed, line care, Line Flush, Starting on Sun09/10/24 at 1733 Huang Reaves aspirin chewable tablet 324 mg aspirin chewable tablet 324 mg 2023-10 17:20: 00 09-10 17:36 :00 Yes 324mg 324 mg, Oral, Once, On Sun09/10/24 at 1720, For 1 dose Huang Reaves heparin 50 units/mL in sodium chloride 0.45 % heparin 50 units/mL in sodium chloride 0.45 % 2023-10 17:05: 00 09-19 19:21 :21 No .1U/kg/ h 0.1-40 Units/kg/h r ?90.1 kg (0.1802-72 .08 mL/hr, rounded to 0.18-72.08 mL/hr), Intravenou s, Continuous , Starting on Sun09/10/24 at 1705, Heparin Protocol - ACS PTT Weight Based Calculate heparin boluses and infusion dose using ACTUAL BODY WEIGHT. IV Initial Bolus for ACS 60 units/kg (Max 4,000 units) Start at 12 units/kg/h r (MAX INITIAL INFUSION = 1,000 units/hr = 20 mL/hr) - adjust per ACS Guidelines below Draw baseline PTT. Initiate drip. DO NOT wait for PTT results to start drip. Draw PTT 6 hours after drip initiation and 6 hours after every dose change. Do not draw PTT through line heparin is infused --- Titration Table PTT < 45 sec: IV Bolus = 40 units/kg (Actual Body Weight) (max 5,000 units). INCREASE dose by 4 units/kg/h r. Notify Provider. Draw PTT 6 hours after increase in dose. PTT 45 - 55.9 sec: IV Bolus = 20 units/kg (Actual Body Weight) (max 2,500 units). INCREASE dose by 2 units/kg/h r. Draw PTT 6 hours after increase in dose. PTT 56 - 64.9 sec: INCREASE dose by 2 units/kg/h r (Actual Body Weight). Draw PTT 6 hours after increase in dose. PTT 65 - 85.9 sec: Therapeuti c, continue at same dose. Redraw PTT in 6 hours to confirm. Once 3 consecutiv e therapeuti c PTT, reduce draws to Q12H. PTT 86 - 100.9 sec: DECREASE dose by 1 unit/kg/hr (Actual Body Weight). Draw PTT 6 hours after decrease in dose. PTT 101 - 119.9 sec: HOLD infusion for 45 minutes. DECREASE dose by 2 units/kg/h r (Actual Body Weight). Draw PTT 6 hours after decrease in dose. PTT 120 - 150.9 sec: HOLD infusion for 60 minutes. Notify provider STAT. Then, DECREASE dose by 3 units/kg/h r (Actual Body Weight). Draw PTT 6 hours after decrease in dose. PTT 151 - 199.9 sec: HOLD infusion for 60 minutes. Notify provider STAT. Then, DECREASE dose by 4 units/kg/h r (Actual Body Weight). Draw PTT 6 hours after decrease in dose. PTT >/= 200 sec: HOLD infusion and repeat PTT STAT through venipunctu re or separate line. Notify provider STAT. 1. If repeat PTT < 200 sec, then follow above protocol 2. If repeat PTT >/= 200 sec, then continue to HOLD infusion & repeat PTT every 2 hours until PTT < 120 sec. Then, DECREASE previous dose by 5 units/kg/h r. Draw PTT 6 hours after decrease in dose. --- Huang Reaves heparin 1000 units/mL injection 1,800 Units heparin 1000 units/mL injection 1,800 Units 2023-10 17:01: 22 09-19 19:21 :21 No 20U/kg 1,800 Units (rounded from 1,802 Units = 20 Units/kg ?90.1 kg), Intravenou s, As needed, per current PTT results. For use when PTT 45.0 - 55.9 sec, Starting on Sun09/10/24 at 1701, PRN bolus. ACS Heparin Weight Based Dosing Protocol - PTT. For use when PTT 45 - 55.9 sec: IV Bolus = 20 units/kg (Actual Body Weight) (maximum 2,500 units). INCREASE dose by 2 units/kg/h r. Notify Provider. Draw PTT 6 hours after increase in dose. Huang Reaves heparin 1000 units/mL injection 3,600 Units heparin 1000 units/mL injection 3,600 Units 2023-10 17:01: 22 09-19 19:21 :21 No 40U/kg 3,600 Units (rounded from 3,604 Units = 40 Units/kg ?90.1 kg), Intravenou s, As needed, per current PTT results. For use when PTT < 45.0 sec, Starting on Sun09/10/24 at 1701, PRN bolus. ACS Heparin Weight Based Dosing Protocol - PTT. For use when PTT < 45 sec. IV Bolus = 40 units/kg (Actual Body Weight) (maximum 5,000 units). INCREASE infusion dose by 4 units/kg/h r. Notify Provider. Draw PTT 6 hours after increase in dose. Huang Reaves sodium chloride 0.9 % bolus 1,000 mL sodium chloride 0.9 % bolus 1,000 mL 2023-10 16:20: 00 09-10 17:24 :00 No 1000mL 1,000 mL, Intravenou s, at 1,000 mL/hr, Administer over 1 Hours, Once, On Sun09/10/24 at 1620, For 1 dose Huang Reaves sodium chloride 0.9 % infusion - Pyxis Override Pull sodium chloride 0.9 % infusion - Pyxis Override Pull 2023-10 16:19: 22 09-10 17:24 :00 No Starting on Sun09/10/24 at 1619, For 1 dose, Created by cabinet override Huang Reaves metoprolol tartrate (Lopressor) injection 5 mg metoprolol tartrate (Lopressor) injection 5 mg 2023-10 15:10: 00 09-10 15:14 :00 Yes 5mg 5 mg, Intravenou s, Once, On Sun09/10/24 at 1510, For 1 dose Huang Reaves atorvastati n (Lipitor) 20 MG tablet atorvastati n (Lipitor) 20 MG tablet 2023-10 0-08 00:00: 00 09-21 00:00 :00 No 20mg QD Take 20 mg by mouth 1 time each day. Huang Bullardann [facility] losartan-hy droCHLOROth iazide (Hyzaar) 100-12.5 MG tablet losartan-hy droCHLOROth iazide (Hyzaar) 100-12.5 MG tablet 2023-10 00:00: 00 09-21 00:00 :00 No 1{tbl} QD Take 1 tablet by mouth 1 time each day. Huang malcolm Lema [facility] amLODIPine (Norvasc) 10 MG tablet amLODIPine (Norvasc) 10 MG tablet 2023-10 00:00: 00 09-21 00:00 :00 No 1{tbl} QD Take 1 tablet by mouth 1 time each day. Huang Bullardann [facility] amlodipine 10 mg tablet 03-01 00:00: 00 Yes 1mg Eduard Cerna losartan 100 mg-hydrochl orothiazide 12.5 mg tablet 03-01 00:00: 00 Yes 1mg Eduard Cerna atorvastati n 20 mg tablet 03-01 00:00: 00 Yes 1mg Eduard Cerna levothyroxi ne 50 mcg tablet 03-01 00:00: 00 Yes 1mcg Eduard Cerna TAKE 1 TABLET DAILY. 2022-10 00:00: 00 03-01 00:00 :00 No 20 Eduard Cerna TAKE 1 TABLET DAILY. 2022-10 00:00: 00 03-01 00:00 :00 No 75 Eduard Cerna TAKE 1 TABLET BY MOUTH ONCE A DAY 2022-10 00:00: 00 03-01 00:00 :00 No 10 Eduard Cerna TAKE 1 TABLET DAILY. 2022-10 00:00: 00 03-01 00:00 :00 No [id number] Eduard Cerna TAKE 1 TABLET DAILY. 03-12 00:00: 00 03-01 00:00 :00 No 20 Eduard Cerna TAKE 1 TABLET DAILY. 03-12 00:00: 00 03-01 00:00 :00 No [id number] Eduard Cerna TAKE 1 TABLET BY MOUTH ONCE A DAY 03-12 00:00: 00 03-01 00:00 :00 No 10 Eduard Cerna TAKE 1 TABLET DAILY. 03-12 00:00: 00 03-01 00:00 :00 No 75 Eduard Cerna TAKE 1 TABLET BY MOUTH ONCE A DAY 18 00:00: 00 03-01 00:00 :00 No 10 Eduard Cerna TAKE 1 TABLET BY MOUTH ONCE A DAY 12-16 00:00: 00 03-01 00:00 :00 No 125 Eduard Cerna hydrochloro thiazide 12.5 mg tablet 2020-10 00:00: 00 Yes 1mg Eduard Cerna amlodipine 10 mg tablet 2020-10 00:00: 00 Yes 1mg Eduard Cerna losartan 100 mg tablet 2020-10 0 00:00: 00 Yes 1mg Eduard Cerna aspirin 81 mg chewable tablet 2020-10 00:00: 00 Yes 1mg Eduard Cerna amlodipine 5 mg tablet 2020-10 00:00: 00 Yes 1mg Eduard Cerna levothyroxi ne 75 mcg tablet 2020-10 00:00: 00 Yes 1mcg Eduard Cerna levothyroxi ne 25 mcg tablet 05-16 00:00: 00 Yes 1mcg Eduard Cerna lisinopril 20 mg tablet 05-14 00:00: 00 Yes 1mg Eduard Cerna Vital Signs Vital Name Observation Time Observation Value Comments S ource Heart rate 2024-09-21 07:33:53 78 /min [facility] Oxygen saturation in Arterial blood by Pulse oximetry 2024-09-21 07:33:53 98 /min [facility] Systolic blood pressure 2024-09-21 07:33:37 102 mm[Hg] [facility] Diastolic blood pressure 2024-09-21 07:33:37 62 mm[Hg] [facility] Body temperature 2024-09-21 07:33:[address] [facility] Respiratory rate 2024-09-21 03:33:00 12 /min [facility] Body weight 2024-09-19 05:33:00 92.5 kg Corey rial [place] [facility] BMI 2024-09-19 05:33:00 26.91 kg/m2 Corey ariadnel [facility] Body height 2024-09-17 12:00:00 185.4 cm Corey rial [facility] Heart rate 2024-09-11 11:21:23 73 /min [facility] [place] [facility] Oxygen saturation in Arterial blood by Pulse oximetry 2024-09-11 11:21:23 94 /min [facility] Systolic blood pressure 2024-09-11 11:21:16 93 mm[Hg] [facility] Diastolic blood pressure 2024-09-11 11:21:16 62 mm[Hg] [facility] Body temperature 2024-09-11 11:20:43 37.11 [facility] Epic Respiratory rate 2024-09-11 07:36:01 18 /min [facility] Body height 2024-09-10 17:38:00 185.4 cm [facility] 2024-09-10 17:38:00 90.1 kg Corey jose [place] [facility] BMI 2024-09-10 17:38:00 26.21 kg/m2 Corey rial [place] [facility] Heart rate 2024-09-21 07:33:53 78 /min [facility] [place] [facility] Oxygen saturation in Arterial blood by Pulse oximetry 2024-09-21 07:33:53 98 /min [facility] Systolic blood pressure 2024-09-21 07:33:37 102 mm[Hg] [facility] Diastolic blood pressure 2024-09-21 07:33:37 62 mm[Hg] [facility] Body temperature 2024-09-21 07:33:12 36.56 [facility] Epic Respiratory rate 2024-09-21 03:33:00 12 /min [facility] Body weight 2024-09-19 05:33:00 92.5 kg Corey rial [place] [facility] BMI 2024-09-19 05:33:00 26.91 kg/m2 Corey rial [place] [facility] Body height 2024-09-17 12:00:00 185.4 cm Corey rial [place] Heart rate 2024-09-11 11:21:23 73 /min [facility] [place] [facility] Oxygen saturation in Arterial blood by Pulse oximetry 2024-09-11 11:21:23 94 /min [facility] Systolic blood pressure 2024-09-11 11:21:16 93 mm[Hg] [facility] Diastolic blood pressure 2024-09-11 11:21:16 62 mm[Hg] [facility] Body temperature 2024-09-11 11:20:43 37.11 [facility] Epic Respiratory rate 2024-09-11 07:36:01 18 /min [facility] [place] Body height 2024-09-10 17:38:00 185.4 cm Corey jose [facility] Body weight 2024-09-10 17:38:00 90.1 kg Corey ariadnel [place] [facility] BMI 2024-09-10 17:38:00 26.21 kg/m2 Corey rial [place] Heart rate 2024-09-21 07:33:53 78 /min [facility] [place] [facility] Oxygen saturation in Arterial blood by Pulse oximetry 2024-09-21 07:33:53 98 /min [facility] Systolic blood pressure 2024-09-21 07:33:37 102 mm[Hg] [facility] Diastolic blood pressure 2024-09-21 07:33:37 62 mm[Hg] [facility] Body temperature 2024-09-21 07:33:12 36.56 [facility] Epic Respiratory rate 2024-09-21 03:33:00 12 /min [facility] Body weight 2024-09-19 05:33:00 92.5 kg Corey jose [place] [facility] BMI 2024-09-19 05:33:00 26.91 kg/m2 Corey jose [place] Body height 2024-09-17 12:00:00 185.4 cm Corey rial [place] Heart rate 2024-09-11 11:21:23 73 /min [facility] [place] [facility] Oxygen saturation in Arterial blood by Pulse oximetry 2024-09-11 11:21:23 94 /min [facility] Systolic blood pressure 2024-09-11 11:21:16 93 mm[Hg] [facility] Diastolic blood pressure 2024-09-11 11:21:16 62 mm[Hg] [facility] Body temperature 2024-09-11 11:20:[address] [facility] Respiratory rate 2024-09-11 07:36:01 18 /min [facility] Body height 2024-09-10 17:38:00 185.4 cm Corey garcia [facility] Body weight 2024-09-10 17:38:00 90.1 kg [facility] BMI 2024-09-10 17:38:00 26.21 kg/m2 [facility] Body Temperature 2024-03-01 10:26:00 Eduard F Nehemiah Heart Rate 2024-03-01 10:26:00 Bhavana en F Nehemiah Respiratory Rate 2024-03-01 10:26:00 Eduard F Nehemiah BP Systolic 2024-03-01 10:26:00 Step hen F Nehemiah BP Diastolic 2024-03-01 10:26:00 Maksim phen F Nehemiah Weight Measured 2024-03-01 10:26:00 Eduard F Nehemiah Height Measured 2024-03-01 10:26:00 Eduard F Nehemiah BP Systolic 2023-04-09 14:17:00 171 mm[Hg] Step hen F Nehemiah BP Diastolic 2023-04-09 14:17:00 111 mm[Hg] Maksim phen F Nehemiah Weight Measured 2023-04-09 14:17:00 210.00 pounds Eduard F Nehemiah Height Measured 2023-04-09 14:17:00 73.27 inches Eduard F Nehemiah Body Temperature 2023-04-09 14:17:00 97.60 degrees Eduard F Nehemiah Heart Rate 2023-04-09 14:17:00 73.00 /min Bhavana en F Nehemiah Respiratory Rate 2023-04-09 14:17:00 Eduard F Nehemiah BP Systolic 2023-03-12 08:34:00 169 mm[Hg] Step hen F Nehemiah BP Diastolic 2023-03-12 08:34:00 92 mm[Hg] Maksim phen F Nehemiah Weight Measured 2023-03-12 08:34:00 210.00 pounds Eduard F Nehemiah Height Measured 2023-03-12 08:34:00 73.27 inches Eduard F Nehemiah Body Temperature 2023-03-12 08:34:00 98.30 degrees Eduard F Nehemiah Heart Rate 2023-03-12 08:34:00 77.00 /min Bhavana en F Nehemiah Respiratory Rate 2023-03-12 08:34:00 18.00 /min Eduard F Nehemiah BP Systolic 2022-11-09 09:34:00 160 mm[Hg] Step hen F Nehemiah BP Diastolic 2022-11-09 09:34:00 104 mm[Hg] Maksim phen F Nehemiah Weight Measured 2022-11-09 09:34:00 201.20 pounds Eduard F Nehemiah Height Measured 2022-11-09 09:34:00 73.27 inches Eduard F Nehemiah Body Temperature 2022-11-09 09:34:00 98.20 degrees Eduard F Nehemiah Heart Rate 2022-11-09 09:34:00 85.00 /min Bhavana en F Nehemiah Respiratory Rate 2022-11-09 09:34:00 18.00 /min Eduard F Nehemiah BP Systolic 2021-08-18 16:47:00 155 mm[Hg] Step hen F Nehemiah BP Diastolic 2021-08-18 16:47:00 87 mm[Hg] Maksim phen F Nehemiah Weight Measured 2021-08-18 16:47:00 207.40 pounds Eduard F Nehemiah Height Measured 2021-08-18 16:47:00 73.27 inches Eduard F Nehemiah Body Temperature 2021-08-18 16:47:00 Eduard F Nehemiah Heart Rate 2021-08-18 16:47:00 78.00 /min Bhavana en F Nehemiah Respiratory Rate 2021-08-18 16:47:00 Eduard F Nehemiah Respiratory Rate 2021-08-04 15:25:00 Eduard F Nehemiah BP Systolic 2021-08-04 15:25:00 173 mm[Hg] Step hen F Nehemiah BP Diastolic 2021-08-04 15:25:00 101 mm[Hg] Maksim phen F Nehemiah Weight Measured 2021-08-04 15:25:00 208.20 pounds Eduard F Nehemiah Height Measured 2021-08-04 15:25:00 73.27 inches Eduard F Nehemiah Body Temperature 2021-08-04 15:25:00 Eduard F Nehemiah Heart Rate 2021-08-04 15:25:00 65.00 /min Bhavana en F Nehemiah BP Systolic 2021-05-14 10:29:00 186 mm[Hg] Step hen F Nehemiah BP Diastolic 2021-05-14 10:29:00 97 mm[Hg] Maksim Cerna Weight Measured 2021-05-14 10:29:00 213.40 pounds Eduard Cerna Height Measured 2021-05-14 10:29:00 73.27 inches Eduard Cerna Body Temperature 2021-05-14 10:29:00 98.80 degrees Eduard Cerna Heart Rate 2021-05-14 10:29:00 71.00 /min Bhavanaraimundo Cerna Respiratory Rate 2021-05-14 10:29:00 Eduard Cerna Procedures Procedure Date / Time Performed Performing Clinician Source BASIC METABOLIC PANEL 2024-09-21 06:15:[address] [facility] MAGNESIUM LEVEL 2024-09-21 06:15:00 Brittney Bowser Apr [facility] PHOSPHORUS LEVEL 2024-09-21 06:15:00 Brittney Bowser [facility] COMPLETE BLOOD COUNT W/DIFF AND PLATELET 2024-09-21 06:15:[address] [facility] COMPLETE BLOOD COUNT 2024-09-21 06:15:[address] [facility] AUTOMATED DIFFERENTIAL 2024-09-21 06:15:[address] [facility] BASIC METABOLIC PANEL 2024-09-20 05:17:[address] [facility] MAGNESIUM LEVEL 2024-09-20 05:17:00 Brittney Bowser Apr [facility] PHOSPHORUS LEVEL 2024-09-20 05:17:00 Brittney Bowser [facility] COMPLETE BLOOD COUNT W/DIFF AND PLATELET 2024-09-20 05:17:[address] [facility] COMPLETE BLOOD COUNT 2024-09-20 05:17:[address] [facility] AUTOMATED DIFFERENTIAL 2024-09-20 05:17:[address] [facility] PERC CORONARY INTERVENTION 2024-09-19 19:25:[address] [facility] PTT 2024-09-19 15:50:00 Wyatt Mccarthy [facility] PTT 2024-09-19 08:59:00 Wyatt Mccarthy [facility] TYPE AND SCREEN 2024-09-19 07:16:[address] [facility] BASIC METABOLIC PANEL 2024-09-19 02:44:[address] Lib[address] ey Elidia [facility] MAGNESIUM LEVEL 2024-09-19 02:44:00 [address] Apr il [facility] PHOSPHORUS LEVEL 2024-09-19 02:44:00 Brittney [address] Ap ril [facility] COMPLETE BLOOD COUNT W/DIFF AND PLATELET 2024-09-19 02:44:00 Doug [facility] PTT 2024-09-19 02:44:00 Wyatt Mccarthy [facility] COMPLETE BLOOD COUNT 2024-09-19 02:44:00 Doug [facility] AUTOMATED DIFFERENTIAL 2024-09-19 02:44:00 Doug [facility] PREPARE RBC 2024-09-19 00:50:[address] [facility] Site care 2024-09-19 00:00:00 [facility] PTT 2024-09-18 20:35:00 Wyatt Mccarthy [facility] ECG 12-LEAD 2024-09-18 14:16:21 Rhiannon Whitlock [facility] PTT 2024-09-18 13:33:00 Wyatt Mccarthy [facility] PTT 2024-09-18 06:55:00 Wyatt Mccarthy [facility] COMPLETE BLOOD COUNT W/DIFF AND PLATELET 2024-09-18 04:21:[address] [facility] COMPLETE BLOOD COUNT 2024-09-18 04:21:[address] [facility] AUTOMATED DIFFERENTIAL 2024-09-18 04:21:[address] [facility] COMPREHENSIVE METABOLIC PANEL 2024-09-18 04:20:[address] [facility] MAGNESIUM LEVEL 2024-09-18 04:20:00 Rhiannon Whitlock [facility] PHOSPHORUS LEVEL 2024-09-18 04:20:00 Rhiannon Whitlock [facility] PREPARE FRESH FROZEN PLASMA 2024-09-18 00:49:[address] [facility] PTT 2024-09-18 00:48:00 Wyatt Mccarthy [facility] Complete Blood Count w/Diff and Platelet 2024-09-18 00:00:00 [facility] PTT 2024-09-17 17:41:00 Wyatt Mccarthy [facility] TRANSTHORACIC ECHO (TTE) LIMITED 2024-09-17 14:46:[address] [facility] POC GLUCOSE UNSOLICITED RESULTS 2024-09-17 12:15:[address] [facility] COMPLETE BLOOD COUNT W/DIFF AND PLATELET 2024-09-17 11:15:[address] [facility] PT AND PTT 2024-09-17 11:15:[address] [facility] COMPLETE BLOOD COUNT 2024-09-17 11:15:[address] [facility] AUTOMATED DIFFERENTIAL 2024-09-17 11:15:[address] [facility] PERC CORONARY INTERVENTION 2024-09-17 10:09:[address] [facility] BASIC METABOLIC PANEL 2024-09-17 00:51:[address] [facility] MAGNESIUM LEVEL 2024-09-17 00:51:[address] [facility] COMPLETE BLOOD COUNT W/DIFF AND PLATELET 2024-09-17 00:51:[address] [facility] COMPLETE BLOOD COUNT 2024-09-17 00:51:[address] [facility] AUTOMATED DIFFERENTIAL 2024-09-17 00:51:[address] [facility] PT AND PTT 2024-09-17 00:43:[address] [facility] PTT 2024-09-16 18:25:[address] [facility] PTT 2024-09-16 11:54:[address] [facility] COMPREHENSIVE METABOLIC PANEL 2024-09-16 05:29:[address] [facility] COMPLETE BLOOD COUNT W/DIFF AND PLATELET 2024-09-16 05:29:00 Supriya, Tonja Perla [facility] COMPLETE BLOOD COUNT 2024-09-16 05:29:00 Supriya, Tonja lerma [facility] AUTOMATED DIFFERENTIAL 2024-09-16 05:29:00 Supriya, Tonja Perla [facility] PTT 2024-09-16 05:28:[address] [facility] PTT 2024-09-15 23:10:[address] [facility] PTT 2024-09-15 17:21:00 Amari Dykes [facility] CT CHEST WO IV CONTRAST 2024-09-15 14:30:[address] [facility] TYPE AND SCREEN 2024-09-15 14:06:[address] [facility] POC GLUCOSE UNSOLICITED RESULTS 2024-09-15 11:54:[address] [facility] PTT 2024-09-15 06:41:[address] [facility] COMPLETE BLOOD COUNT W/DIFF AND PLATELET 2024-09-15 05:30:00 Supriya, Tonja Perla [facility] COMPLETE BLOOD COUNT 2024-09-15 05:30:00 Supriya, Tonja lerma [facility] AUTOMATED DIFFERENTIAL 2024-09-15 05:30:00 Supriya, Tonja Perla [facility] BASIC METABOLIC PANEL 2024-09-15 05:29:[address] [facility] Prepare platelet dose: 2 doses Transfusion indications: Hold for surgery 2024-09-15 00:00:00 [facility] PTT 2024-09-14 23:48:[address] [facility] UA WITH CULTURE IF INDICATED 2024-09-14 17:55:[address] [facility] LIPID PANEL W/CALCULATED LDL 2024-09-14 17:53:[address] [facility] PTT 2024-09-14 17:53:00 Amari Dykes [facility] CORONAVIRUS (COVID-19) BERNARDO ICU/ISOLATION 2024-09-14 11:01:[address] [facility] PTT 2024-09-14 10:02:00 Nwoha, Remigio Marshalleze [facility] COMPREHENSIVE METABOLIC PANEL 2024-09-14 02:52:00 Nwoha, Heidy Marie [facility] COMPLETE BLOOD COUNT W/DIFF AND PLATELET 2024-09-14 02:52:00 Supriya, Tonja Amaralu [facility] PTT 2024-09-14 02:52:00 Nwoha, Remigio krysta Cynthia [facility] COMPLETE BLOOD COUNT 2024-09-14 02:52:00 Supriya, Tonja Centeno florentin [facility] AUTOMATED DIFFERENTIAL 2024-09-14 02:52:00 Supriya, Tonja Amaarlu [facility] PTT 2024-09-13 19:34:00 Nwoha, Remigio krysta Cynthia [facility] PTT 2024-09-13 10:31:00 Nwoha, Remigio Marshalleze [facility] EXTRA GREEN TOP 2024-09-13 10:31:00 Nwoha, Remigio chaparro Cynthia [facility] EXTRA TUBES 2024-09-13 10:31:00 Nwoha, Remigio chaparro Cynthia [facility] COMPREHENSIVE METABOLIC PANEL 2024-09-13 06:40:00 Nwoha, Heidy Marie [facility] MAGNESIUM LEVEL 2024-09-13 06:40:[address] [facility] COMPLETE BLOOD COUNT W/DIFF AND PLATELET 2024-09-13 06:40:[address] [facility] COMPLETE BLOOD COUNT 2024-09-13 06:40:[address] [facility] AUTOMATED DIFFERENTIAL 2024-09-13 06:40:[address] [facility] PTT 2024-09-13 02:12:00 Nwoha, Remigio Marie [facility] Basic Metabolic Panel 2024-09-13 00:00:00 [facility] Magnesium Level 2024-09-13 00:00:00 Monroe garces [facility] Complete Blood Count w/Diff and Platelet 2024-09-13 00:00:00 [facility] COMPLETE BLOOD COUNT W/DIFF AND PLATELET 2024-09-12 16:27:00 Supriya, Tonja Perla [facility] PTT 2024-09-12 16:27:00 Nwoha, Remigio Marie [facility] COMPLETE BLOOD COUNT 2024-09-12 16:27:00 Supriya, Tonja lerma [facility] AUTOMATED DIFFERENTIAL 2024-09-12 16:27:00 Supriya, Tonja Perla [facility] TROPONIN I HIGH SENSITIVITY (SINGLE ORDER) 2024-09-12 14:42:00 Supriya, Tonja Amaralu [facility] STRESS TEST, PHARMACOLOGICAL WITH MYOCARDIAL PERFUSION SPECT (MULTI STUDY) 2024-09-12 14:00:[address] [facility] POC GLUCOSE UNSOLICITED RESULTS 2024-09-12 11:49:00 Nwoha, Heidy Marshalleze [facility] EXTRA LAVENDER TOP 2024-09-12 08:01:00 Nwoha, Hugh Marshalleze [facility] EXTRA TUBES 2024-09-12 08:01:00 Nwoha, Remigio chaparro Cynthia [facility] PTT 2024-09-12 08:00:00 Nwoha, Remigio chaparro Cynthia [facility] TROPONIN I HIGH SENSITIVITY (SINGLE ORDER) 2024-09-12 08:00:00 Supriya, Tonja Perla [facility] COMPREHENSIVE METABOLIC PANEL 2024-09-12 02:37:00 Nwoha, Heidy Marshalleze [facility] MAGNESIUM LEVEL 2024-09-12 02:37:[address] [facility] COMPLETE BLOOD COUNT W/DIFF AND PLATELET 2024-09-12 02:37:[address] [facility] PTT 2024-09-12 02:37:00 Nwoha, Remigio Marshalleze [facility] TROPONIN I HIGH SENSITIVITY (SINGLE ORDER) 2024-09-12 02:37:00 Supriya, Tonja Perla [facility] COMPLETE BLOOD COUNT 2024-09-12 02:37:[address] [facility] AUTOMATED DIFFERENTIAL 2024-09-12 02:37:[address] [facility] Troponin I High Sensitivity (Single Order) 2024-09-12 00:00:00 [facility] PTT 2024-09-11 18:29:[address] [facility] TROPONIN I HIGH SENSITIVITY (SINGLE ORDER) 2024-09-11 18:29:[address] [facility] US CAROTID ARTERY DOPPLER BILATERAL 2024-09-11 16:45:[address] [facility] XR CHEST 1 VIEW 2024-09-11 15:39:[address] [facility] TROPONIN I HIGH SENSITIVITY (SINGLE ORDER) 2024-09-11 13:14:00 Supriya, Tonja Perla [facility] POC GLUCOSE UNSOLICITED RESULTS 2024-09-11 11:21:[address] [facility] PTT 2024-09-11 09:33:00 SupriyaTonja soto [facility] TROPONIN I HIGH SENSITIVITY (SINGLE ORDER) 2024-09-11 09:33:00 Supriya, Tonja Perla [facility] COMPLETE BLOOD COUNT W/DIFF AND PLATELET 2024-09-11 03:36:[address] [facility] COMPLETE BLOOD COUNT 2024-09-11 03:36:[address] [facility] AUTOMATED DIFFERENTIAL 2024-09-11 03:36:[address] [facility] PTT 2024-09-11 01:38:00 Supriya, Tonja Perla [facility] TROPONIN I HIGH SENSITIVITY (SINGLE ORDER) 2024-09-11 01:38:00 Supriya, Tonja Perla [facility] Lipid Panel w/calculated LDL 2024-09-11 00:00:00 [facility] CV Viability Stress Test 2024-09-11 00:00:00 [facility] TRANSTHORACIC ECHO (TTE) COMPLETE W/ CONTRAST 2024-09-10 21:47:21 Supriya, Tonja Perla [facility] LEFT HEART CATH 2024-09-10 18:50:[address] [facility] PERC CORONARY INTERVENTION 2024-09-10 18:50:[address] [facility] HEMOGLOBIN A1C 2024-09-10 17:20:[address] [facility] COMPLETE BLOOD COUNT W/DIFF AND PLATELET 2024-09-10 17:20:[address] [facility] PROTIME-INR 2024-09-10 17:20:[address] [facility] PTT 2024-09-10 17:20:[address] [facility] TROPONIN I HIGH SENSITIVITY CARESET (1ST HR) 2024-09-10 17:20:[address] [facility] COMPLETE BLOOD COUNT 2024-09-10 17:20:[address] [facility] AUTOMATED DIFFERENTIAL 2024-09-10 17:20:[address] [facility] ECG 12-LEAD 2024-09-10 17:10:23 Wyatt Mccarthy [facility] TROPONIN I HIGH SENSITIVITY CARESET 2024-09-10 16:22:[address] [facility] TROPONIN I HIGH SENSITIVITY CARESET (BASELINE) 2024-09-10 16:22:[address] [facility] ECG 12-LEAD 2024-09-10 15:14:37 Wyatt Mccarthy [facility] BASIC METABOLIC PANEL 2024-09-10 15:08:[address] [facility] MAGNESIUM LEVEL 2024-09-10 15:08:[address] [facility] PHOSPHORUS LEVEL 2024-09-10 15:08:[address] [facility] COMPLETE BLOOD COUNT W/DIFF AND PLATELET 2024-09-10 15:08:[address] [facility] COMPLETE BLOOD COUNT 2024-09-10 15:08:[address] [facility] AUTOMATED DIFFERENTIAL 2024-09-10 15:08:[address] [facility] NM CRITICAL CARE ILL/INJURED PATIENT INIT [id number] MIN 2024-09-10 14:44:[address] [facility] Site Care 2024-09-10 00:00:00 [facility] NM CABG W/ARTERIAL GRAFT SINGLE ARTERIAL GRAFT Reji Dykes [facility] lead [facility] Encounters Start Date/Time End Date/Time Encounter Type Admission Type Attending [facility] Care Facility Care Department Encounter ID Source 2024-09-10 14:51:00 2024-09-21 14:39:00 Hospital Encounter ChaloReji, Ayana Quiñones, Heidy Dykes, Reji Camacho, Abisai Cota, Shalini [facility] [id number] [facility] 2024-09-10 14:51:00 2024-09-21 14:39:00 Inpatient Emergency ABISAI CAMACHO [facility] General Medicine [id number] [facility] 2024-09-12 00:00:00 2024-09-12 14:37:17 Patient Outreach [place] [id number] [facility] 2024-09-10 14:51:00 2024-09-11 12:10:00 Inpatient Emergency AYANA HARGROVE [facility] General Medicine [id number] [facility] 2024-03-01 10:26:36 2024-03-01 10:26:36 Outpatient [facility] [id number] Eduard F Nehemiah 2024-03-01 00:00:00 2024-03-01 00:00:00 Outpatient Visit [facility] [id number] Eduard Lina Nehemiah 2023-04-09 14:12:04 2023-04-09 14:12:04 Outpatient [facility] [id number] Eduard Lina Nehemiah 2023-03-12 08:31:40 2023-03-12 08:31:40 Outpatient [facility] [id number] Eduard Lina Nehemiah Results Test Description Test Time Test Comments Results Result Co mments Source [facility] [id number] 12:39:43* Test Item Value Reference Range Interpretation Comme nts Ventricular Rate (test code = 2833111743) BPM Atrial Rate (test code = 6361498036) BPM NM Interval (test code = 9007397284) 128 ms QRS Duration (test code = 5205857639) 106 ms QT/QTc (test code = 5239059418) 402 ms QTc Calculation (test code = 9466327242) 440 ms P-Magnolia (test code = 0103654654) degrees R-Magnolia (test code = 9682775220) degrees T-Magnolia (test code = 2574452486) degrees BEA (test code = BEA) PXN (test code = PXN) [facility] [id number] 12:39:17* Test Item Value Reference Range Interpretation Comme nts Ventricular Rate (test code = 8851754805) BPM Atrial Rate (test code = 0025711172) BPM NM Interval (test code = 7269690290) 126 ms QRS Duration (test code = 4639656366) 100 ms QT/QTc (test code = 2382203180) 366 ms QTc Calculation (test code = 3334675060) 408 ms P-Magnolia (test code = 2484599738) degrees R-Magnolia (test code = 8520516233) degrees T-Magnolia (test code = 3593167598) degrees BEA (test code = BEA) PXN (test code = PXN) [facility] EpicPrepare RBC: 4 [id number] 00:50:15* Test Item Value Reference Range Interpretation Comme [facility] Product Code (test code = 25) [id number] Unit Number (test code = 1624) [id number] Unit ABO (test code = 2160290) B Unit RH (test code = 9387121) NEG Crossmatch (test code = 9124432) Compatible Dispense Status (test code = 1623) Released Blood Expiration Date (test code = 530) Product Blood Type (test cod e = 532) Unit Volume (test code = 1322-7) 300 mL [facility]: 2 Units Transfusion indications: Hold for [id number] 00:49:13* Test Item Value Reference Range Interpretation Comme [facility] Product Code (test code = 25) [id number] Unit Number (test code = 1624) [id number] Unit ABO (test code = 7112697) AB Unit RH (test code = 7787887) NEG Dispense Status (test code = 1623) Released Blood Expiration Date (test code = 530) Product Blood Type (test cod e = 532) Unit Volume (test code = 1322-7) [address] [facility] [id number] 19:20:43* Test Item Value Reference Range Interpretation Comme nts BSA (test code = 1677699017) 2.15 m2 Radiology Study observation (narrative) (test code = 98121-4) BEA (test code = BEA) [facility] Dkdvnve0184-07-17 12:45:09* Test Item Value Reference Range Interpretation Comme nts POC Glu (test code = 9317746806) 93 mg/dL 70-99 POC Performing Location (chuy t code = 5102875038) [address] [facility] with myocardial [id number] 18:07:05* Test Item Value Reference Range Interpretation Comme nts Rest Nuclear Isotope Dose (t est code = 6315445913) 11 mCi Stress Nuclear Isotope Dose (test code = 0860001415) 32 mCi Max Age Predicted HR (test c ode = 1183509718) bpm Predicted METS (test code = 5742234736) METS ST Depression (mm) (test cod e = 3542991251) 0 mm EF (%) (test code = 7786416611) 13 % Radiology Study observation (narrative) (test code = 71771-9) BEA (test code = BEA) [facility] [id number] 11:59:02* Test Item Value Reference Range Interpretation Comme nts POC Glu (test code = 6670439611) 102 mg/dL 70-99 H POC Performing Location (chuy t code = 6142924324) 3 ICU Lab Interpretation (test cod e = 28857-0) Abnormal [facility] EpicExtra [id number] 12:01:15* Test Item Value Reference Range Interpretation Comme nts Hold Specimen (test code = 293) Hold for add-ons. Auto resulted. [facility] Tlspmje5827-24-60 11:56:30* Test Item Value Reference Range Interpretation Comme [facility] POC Glu (test code = 1565676214) 108 mg/dL 70-99 H POC Performing Location (chuy t code = 8157605316) 3B GS/Tele Lab Interpretation (test cod e = 09457-4) Abnormal [facility] [id number] 10:01:12* Test Item Value Reference Range Interpretation Comme nts Hold Specimen (test code = 293) Hold for add-ons. Auto resulted. [facility] [id number] 11:46:25* Test Item Value Reference Range Interpretation Comme [facility] POC Glu (test code = 5144827559) 148 mg/dL 70-99 H POC Glu Comment 1 (test code = 7367904423) Notified RN/MD POC Performing Location (chuy t code = 8463874562) 3N Lab Interpretation (test cod e = 12094-8) Abnormal [facility]TTE[facility] [id number] 10:49:42* Test Item Value Reference Range Interpretation Comme [facility] LA Vol I (A4C) BSA (test code = 3088471945) 26.4 ml/m2 LA Vol I BSA (test code = 1312468692) 30.1 ml/m2 LVOT Vmax/AV Vmax (test code = 8520046695) 0.46 {ratio} Ao Root diam diastole (test code = 1331609302) 35 mm LVOT Vmean (test code = 9341499559) 0.3 m/s LA area A4C (test code = 0074039912) 20.4 cm2 LA area A2C (test code = 5741923762) 20.8 cm2 TAPSE (test code = 0834379008) 21 mm LA ESV A2C (test code = 4006359058) 64.450681031882921 mL LA ESV A4C (test code = 3859290960) 64.177505542000886 mL LV est EF (test code = 6760277269) 28 % LA vol index (test code = 9222469414) 29.4 mL/m2 MV A pk ju (test code = 8095586746) 0.53 m/s MV E pk ju (test code = 2161363058) 0.63 m/s AV pk grad (test code = 6698412394) mmHg LV stroke vol (test code = 3973434731) 26 ml AV VTI (test code = 3332721039) 18.8 cm AV pk ju (test code = 4058406804) 1.02 m/s LVOT VTI (test code = 6639679358) 8.4 cm LVOT pk ju (test code = 1766191856) 0.47 m/s LVOT area (test code = 3168217207) 3.14 cm2 LVOT diam (test code = 2497575232) 20 mm MV DT (test code = 3481865956) 156 ms MV e' lateral ju (test code = 0062304030) 10.1 cm/s MV E/A ratio (test code = 8310943002) PV pk grad (test code = 8673575497) mmHg LVOT pk grad (test code = 2087861899) mmHg AV mn grad (test code = 8729696456) mmHg MV E/e' septal (test code = 7616150547) AV area pk ju (test code = 8031707981) 1.45 cm2 AV area cont VTI (test code = 1295720976) 1.41 cm2 LVOT mn grad (test code = 9591559715) mmHg AV mn ju (test code = 0339656584) 0.7 m/s LVPWd (test code = 8623435029) 11 mm LA size (test code = 2735873518) 31 mm LA vol BP (test code = 2466929331) 63.3 ml Fractional Shortening 2D (test code = 2292516959) 13 % LVIDs (test code = 0359785037) 54 mm IVSd (test code = 1684217910) 10 mm LVIDd (test code = 0500635839) 63 mm PV pk ju (test code = 5213893224) 0.75 m/s MV E/e' lateral (test code = 2778229) MV e' septal ju (test code = 6436974) 6.74 cm/s LV ESV 2D (test code = 3551227) 143 mL LV EDV 2D (test code = 2607337) 198 mL IVSd 2D (test code = 5862400) 10.4 cm BSA (test code = 8875356862) 2.15 m2 Radiology Study observation (narrative) (test code = 62196-7) BEA (test code = BEA) [facility] EpicLIPID [id number] 00:00:00* Test Item Value Reference Range Interpretation Comme nts CHOLESTEROL (test code = 2210) 111 MG/DL TRIGLYCERIDES (test code = 2232) 264 MG/DL HDL CHOLESTEROL (test code = 2220) 27 MG/DL CALC LDL CHOL (test code = 2237) 53 MG/DL RISK RATIO LDL/HDL (test cod e = 2238) 1.96 RATIO Eduard CernaHEMOGLOBIN [id number] 00:00:00* Test Item Value Reference Range Interpretation Comme jaja HEMOGLOBIN A1c (test code = 62318) 5.7 % Eduard France THIRD [id number] 00:00:00* Test Item Value Reference Range Interpretation Comme jaja TSH, THIRD GENERATION (test code = 2821) 0.236 UIU/ML Eduard [place] THIRD [id number] 06:35:25* Test Item Value Reference Range Interpretation Comme jaja TSH, THIRD GENERATION (test code = 2821) 5.380 UIU/ML 0.400-4.100 H T4 (THYROXINE)2022-11-10 06:35:25* Test Item Value Reference Range Interpretation Comme jaja T4 (THYROXINE) (test code = 2819) 5.7 UG/DL 4.5-10.5 UNLESS OTHERW ISE INDICATED, ALL TESTING PERFORMED [facility] [address] [place] [address] TUCK POINTER: JAY SMITH M.D. CLIA NUMBER [id number] [facility] [place] [id number] COMPREHENSIVE METABOLIC [id number] 06:23:16* Test Item Value Reference Range Interpretation Comme nts GLUCOSE (test code = 2217) 105 MG/DL 70-99 H BUN (test code = 2208) 13 MG/DL 6-20 CREATININE (test code = 2214) 1.03 MG/DL 0.80-1.40 eGFR (2020 CKD-EPI) (test code = 62129) 85 ML/MIN/1.73 >60 CALC BUN/CREAT (test code = 2235) 13 RATIO 6-28 SODIUM (test code = 2231) 140 MEQ/L 133-146 POTASSIUM (test code = 2228) 4.8 MEQ/L 3.5-5.4 CHLORIDE (test code = 2215) 102 MEQ/L 95-107 CARBON DIOXIDE (test code = 2206) 26 MEQ/L 19-31 CALCIUM (test code = 220) 10.2 MG/DL 8.5-10.5 PROTEIN, TOTAL (test code = 222) 7.5 G/DL 6.1-8.3 ALBUMIN (test code = 220) 4.6 G/DL 3.5-5.2 CALC GLOBULIN (test code = 2240) 2.9 G/DL 1.9-3.7 CALC A/G RATIO (test code = 223) 1.6 RATIO 1.0-2.6 BILIRUBIN, TOTAL (test code = 2206) 1.0 MG/DL See_Comment [Automated me ssage] The system which generated this result transmitted reference range: <=1.2. The reference range was not used to interpret this result as normal/abnormal. ALKALINE PHOSPHATASE (test code = 2203) 89 U/L 40-123 AST (test code = 2217) 13 U/L 9-50 ALT (test code = 221) 14 U/L 5-50 LIPID [id number] 06:23:16* Test Item Value Reference Range Interpretation Comme nts CHOLESTEROL (test code = 2210) 180 MG/DL <200 TRIGLYCERIDES (test code = 2232) 174 MG/DL <150 H HDL CHOLESTEROL (test code = 222) 29 MG/DL >39 L CALC LDL CHOL (test code = 2236) 122 MG/DL <100 H NOTE: CALCULATED LDL IS BASED ON SHANTAL-VALDES METHOD WHICHINCLUDES ADJUSTABLE TRIGLYCERIDE:VLDL CHOLESTEROL RATIO.THIS FACTOR VARIES BY MEASURED TRIGLYCERIDE AND NON-HDLCHOLESTEROL CONCENTRATIONS WITH INCREASED CALCULATED LDL SEENIN HIGHER TRIGLYCERIDE OR LOWER NON-HDL SPECIMENS. FOR MOREINFORMATION, SEE CLIENT ANNOUNCEMENT AT [email or web address] RISK RATIO LDL/HDL (test code = 223) 4.21 RATIO <3.55 H COMPREHENSIVE METABOLIC [id number] 00:00:00* Test Item Value Reference Range Interpretation Comme nts GLUCOSE (test code = 2216) 105 MG/DL BUN (test code = 2207) 13 MG/DL CREATININE (test code = 2214) 1.03 MG/DL eGFR (2020 CKD-EPI) (test co de = 79057) 85 ML/MIN/1.73 CALC BUN/CREAT (test code = 2235) 13 RATIO SODIUM (test code = 2231) 140 MEQ/L POTASSIUM (test code = 2228) 4.8 MEQ/L CHLORIDE (test code = 2215) 102 MEQ/L CARBON DIOXIDE (test code = 2206) 26 MEQ/L CALCIUM (test code = 2209) 10.2 MG/DL PROTEIN, TOTAL (test code = 2229) 7.5 G/DL ALBUMIN (test code = 2201) 4.6 G/DL CALC GLOBULIN (test code = 2240) 2.9 G/DL CALC A/G RATIO (test code = 2234) 1.6 RATIO BILIRUBIN, TOTAL (test code = 2207) 1.0 MG/DL ALKALINE PHOSPHATASE (test code = 2204) 89 U/L AST (test code = 2218) 13 U/L ALT (test code = 2219) 14 U/L Eduard CernaLIPID [id number] 00:00:00* Test Item Value Reference Range Interpretation Comme nts CHOLESTEROL (test code = 2210) 180 MG/DL TRIGLYCERIDES (test code = 2232) 174 MG/DL HDL CHOLESTEROL (test code = 2220) 29 MG/DL CALC LDL CHOL (test code = 2237) 122 MG/DL RISK RATIO LDL/HDL (test cod e = 2238) 4.21 RATIO Eduard CernaTSH, THIRD [id number] 00:00:00* Test Item Value Reference Range Interpretation Comme nts TSH, THIRD GENERATION (test code = 2821) 5.380 UIU/ML Eduard CernaT4 (THYROXINE)2022-11-10 00:00:00* Test Item Value Reference Range Interpretation Comme nts T4 (THYROXINE) (test code = 2819) 5.7 UG/DL Eduard CernaOCCULT BLD,FECAL,IMMUNOASSAY [id number] 00:00:00* Test Item Value Reference Range Interpretation Comme nts OCCULT BLD, FECAL (test code = 61045) NEGATIVE Eduard [id number] 00:00:00* Test Item Value Reference Range Interpretation Comme nts TSH, THIRD GENERATION (test code = 2821) 10.900 UIU/ML Eduard AkersA, [id number] 00:00:00* Test Item Value Reference Range Interpretation Comme nts PSA, TOTAL (test code = 2606) 1.63 NG/ML Eduard CernaLIPID [id number] 00:00:00* Test Item Value Reference Range Interpretation Comme nts CHOLESTEROL (test code = 2210) 159 MG/DL TRIGLYCERIDES (test code = 2232) 204 MG/DL HDL CHOLESTEROL (test code = 2220) 29 MG/DL CALC LDL CHOL (test code = 2237) 98 MG/DL RISK RATIO LDL/HDL (test cod e = 2238) 3.38 RATIO Eduard CernaCOMPREHENSIVE METABOLIC [id number] 00:00:00* Test Item Value Reference Range Interpretation Comme nts GLUCOSE (test code = 2217) 108 MG/DL BUN (test code = 2208) 11 MG/DL CREATININE (test code = 2214) 1.03 MG/DL eGFR AMER. (test cod e = 01919) 95 ML/MIN/1.73 eGFR NON- AMER. (test code = 33343) 82 ML/MIN/1.73 CALC BUN/CREAT (test code = 2235) 11 RATIO SODIUM (test code = 2231) 137 MEQ/L POTASSIUM (test code = 2228) 4.8 MEQ/L CHLORIDE (test code = 2215) 101 MEQ/L CARBON DIOXIDE (test code = 2206) 25 MEQ/L CALCIUM (test code = 2209) 9.3 MG/DL PROTEIN, TOTAL (test code = 2229) 7.3 G/DL ALBUMIN (test code = 2201) 4.7 G/DL CALC GLOBULIN (test code = 2240) 2.6 G/DL CALC A/G RATIO (test code = 2234) 1.8 RATIO BILIRUBIN, TOTAL (test code = 2207) 1.2 MG/DL ALKALINE PHOSPHATASE (test code = 2204) 72 U/L AST (test code = 2218) 17 U/L ALT (test code = 2219) 18 U/L Eduard Cerna Consult Notes Date/Time Note Provider Source 2024-09-17 16:23:01 Consultation Critical Care Medicine Chief Complaint: Chest pain History of present illness: Ricardo Hanson is a 59 y.o. male who has a PMH of HTN and HLD. He presented to the ED with complaints of chest pain and was admitted for NSTEMI. 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 He received PCI to the RCA. He is on MCS in the form an Impella device at P4. The plan is to perform staged PCI in two days to the LAD and circumflex arteries. Past medical history: As above Surgical history: He has no past surgical history on file. Family history: Family History: Problem Relation Name Age of Onset Heart attack Mother 58 Heart attack Father 58 Diabetes Brother Social history: He reports that he has never smoked. He has never used smokeless tobacco. He reports current drug use. Drug: Marijuana. No history on file for alcohol use. Medications: Scheduled Meds: aspirin EC, 81 mg, Oral, Daily Or aspirin, 300 mg, Rectal, Daily atorvastatin, 80 mg, Oral, Nightly busPIRone, 5 mg, Oral, TID clopidogrel, 75 mg, Oral, Daily docusate sodium, 100 mg, Oral, BID fluticasone, 2 spray, Each Nostril, Daily heparin, 4,000 Units, Intravenous, Once metoprolol tartrate, 12.5 mg, Oral, q12h CHAPIN sodium chloride, 10 mL, Intravenous, q12h sodium chloride, 10 mL, Intravenous, q12h sodium chloride, 10 mL, Intravenous, q12h CHAPIN Continuous Meds: dexmedeTOMIDine, 0.2-1.5 mcg/kg/hr EPINEPHrine, 1-35 mcg/min heparin, 0.1-40 Units/kg/hr, Last Rate: 17.1 Units/kg/hr (09/17/24 1111) insulin regular, 0.01 Units/hr norepinephrine, 5-70 mcg/min phenylephrine, 35-350 mcg/min sodium bicarbonate 25 mEq in dextrose 5 % 1,000 mL infusion, 0.1-40 mL/hr, Last Rate: 12.4 mL/hr (09/17/24 1120) PRN Meds: PRN medications: acetaminophen, calcium gluconate, calcium gluconate, dextrose, dextrose, diphenhydrAMINE, glucagon, heparin, heparin, HYDROcodone-acetaminophen, magnesium oxide, magnesium sulfate, magnesium sulfate, magnesium sulfate, melatonin, naloxone, nitroglycerin, ondansetron, potassium & sodium phosphates, potassium chloride, potassium chloride, potassium chloride, Potassium chloride, potassium phosphate, potassium phosphate, sennosides, sodium chloride, sodium chloride, sodium chloride, sodium chloride, sodium phosphate, sodium phosphate Review of systems: Review of Systems Constitutional: Negative. HENT: Negative. Eyes: Negative. Respiratory: Negative. Cardiovascular: Positive for chest pain. Gastrointestinal: Negative. Endocrine: Negative. Genitourinary: Negative. Musculoskeletal: Negative. Skin: Negative. Allergic/Immunologic: Negative. Neurological: Negative. Hematological: Negative. Psychiatric/Behavioral: Negative. Physical exam: Visit Vitals BP (!) 140/103 Pulse 74 Temp 36.3 ?C (97.3 ?F) Resp 23 Ht 1.854 m (6' 0.99") Wt 90.1 kg (198 lb 10.2 oz) SpO2 100% BMI 26.21 kg/m? Smoking Status Never BSA 2.15 m? Body mass index is 26.21 kg/m?. General: NAD ENT: protecting airway Heart: S1 S2 regular Lungs: CTAB Abdomen: soft/NT/ND + BS : wolfe Extremities: no edema no ischemia gangrene Skin: no rashes, no bruises Neurologic: alert & oriented non-lateralizing Laboratory studies: Lab Results Component Value Date WBC 6.92 09/17/2024 Hgb 14.8 09/17/2024 Hct 42.1 09/17/2024 Plt Count 188 09/17/2024 Lab Results Component Value Date Sodium Lvl 138 09/17/2024 Potassium Lvl 4.1 09/17/2024 Chloride Lvl 107 09/17/2024 CO2 Lvl 26.2 09/17/2024 BUN 12 09/17/2024 Creatinine Lvl 0.84 09/17/2024 Glucose Lvl 96 09/17/2024 POC Glu 93 09/17/2024 Lab Results Component Value Date Calcium Lvl 9.1 09/17/2024 Magnesium 2.05 09/17/2024 Lab Results Component Value Date AST 71 (H) 09/16/2024 ALT 69 (H) 09/16/2024 Alkaline Phosphatase 62 09/16/2024 Lab Results Component Value Date PTT 70.9 (H) 09/17/2024 Prothrombin Time (PT) 13.8 09/17/2024 INR 1.04 09/17/2024 Lab Results Component Value Date UA Color Light Yellow 09/14/2024 UA Spec Grav 1.008 09/14/2024 UA pH 5.0 09/14/2024 UA Protein Negative 09/14/2024 UA Glucose Negative 09/14/2024 UA Ketones Negative 09/14/2024 UA Nitrite Negative 09/14/2024 UA Leuk Esterase Negative 09/14/2024 UA Bilirubin Negative 09/14/2024 UA Urobilinogen <=1.0 09/14/2024 No results found for: "CK", "TROPONINT", "TROPONINI", "BNP" No components found for: "HGBA1C;2" No components found for: "TSH;2" Radiology: === 09/10/24 === XR CHEST 1 VIEW - Impression - No acute radiographic abnormality. ELECTRONICALLY SIGNED BY PATIENCE BROWN MD ON 09/11/2024 AT 16:08. Problem list Assessment & Plan Coronary artery disease involving elim ira coronary artery of elim ira heart with unstable angina pectoris (HCC) NSTEMI (non-ST elevated myocardial infarction) ([facility] ([facility]) HTN (hypertension) HLD (hyperlipidemia) Paroxysmal atrial fibrillation ([facility]/HCC) (HCC) Acute systolic congestive heart failure ([facility] ([facility]) Plan ICU care DAPT, high intensity statin Heparin drip MCS with Impella device TTE Heart healthy diet Pain management ICU lines/tube/prophylaxis IV Access: Peripheral IV 09/10/24 Left Antecubital (Active) Peripheral IV 09/10/24 Anterior;Distal;Right;Upper Arm (Active) and Urinary Catheter: Urethral Catheter Temperature probe 16 Fr. (Active) Prophylaxis: DVT - Stress ulcer - Disposition Admit to ICU Code status Code Status: Full Code Attestation I personally evaluated the patient and reviewed the EMR. Requires critical care due to the acute impairment of vital organ systems and a high probability of imminent and life threatening deterioration. CCM time: 32 min Rhiannon Whitlock D.O. Critical Care Medicine [facility] [place] 2024-09-12 11:51:09 CARDIOLOGY INITIAL CONSULT NOTE Reason For Consult: CAD Consulting Physician: Dr. Quiñones History Of Present Illness: Ricardo Hanson is a 59 y.o. year old male patient with a h/o HTN, HLD who presented to the [facility] ER with chest pain, found to have NSTEMI with hsTrop 18K. 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 Echo showed EF 20-25%. He was transferred to [facility] for CABG evaluation. He has been evaluated by CTS and a viability study was requested. There is no modality available to evaluate viability at this facility therefore it was decided to proceed with a lexiscan stress test to evaluate for ischemia. The patient is seen in the [facility] area. He received the lexiscan stress test 1 hour ago which he tolerated. He reports very mild chest pain after return to his room, but nothing as severe as what brought him to the hospital. 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 Physical Exam: 09/11/2024 4:04 PM 09/11/2024 6:59 PM 09/11/2024 7:02 PM 09/11/2024 11:20 PM 09/12/2024 4:31 AM 09/12/2024 7:36 AM 09/12/2024 7:38 AM Vitals Systolic 100 94 101 112 Diastolic 74 57 62 62 Heart Rate 74 68 65 62 Temp 36.9 ?C (98.4 ?F) 36.8 ?C (98.3 ?F) Resp 18 General Appearance: No acute distress Lungs: CTA bilaterally, no wheezes/rales/rhonchi, and good air entry Heart: Regular rate and rhythm Abdomen: Soft nontender Extremities: No c/c/e Neurologic: No focal deficits Current Outpatient Medications Medication Instructions amLODIPine (Norvasc) 10 MG tablet 1 tablet, Daily atorvastatin (LIPITOR) 20 mg, Daily levothyroxine (Unithroid) 50 MCG tablet Daily before breakfast losartan-hydroCHLOROthiazide (Hyzaar) 100-12.5 MG tablet 1 tablet, Daily Assessment and Plan: Ricardo Hanson is a 59 y.o. year old male patient with a h/o HTN, HLD who presented to the [facility] ER with chest pain, found to have NSTEMI with hsTrop 18K. 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 Echo showed EF 20-25%. He was transferred to [facility] for CABG evaluation. Severe MV CAD -cardiac cath 09/10/2024 at [facility] showed proximal LAD SUPERVISOR [employer] EDUCATION with right to left & left to left collaterals, severe proximal CX stenosis, mid RCA SUPER[employer]OR [employer]UCATION with bridging collaterals -echo showed EF 20-25% -pending results of lexiscan stress test (no modality to test viability at this facility) as requested by CT surgery -continue ASA, hep gtt -increase to high intensity statin 2. iCM (EF 20-25%) -will eventually start GDMT as BP tolerates. All meds on hold this morning due to low BP 3. HTN -meds on hold for low BP as above 4. HLD -check lipids Thank you for allowing us to participate in the care of this patient. Please call with any questions or concerns. Dang Soliman MD Interventional Cardiology [facility] 2024-09-11 16:54:31 Images from the original note were not included. [facility] Cardiothoracic and V[facility]- [address], [address] [place] [address] Dept: [phone] Patient: Ricardo Hanson Date of : 1965 Gender: male Cardiothoracic Surgery Consult Note Consulting Physician/Service Dr. Mccarthy Chief Complaint Chest pain History of Present Illness Ricardo Hanson is a 59 y.o. male presenting with worsening chest pain. He states that he was lifting boxes at his job when he felt central chest discomfort with radiation to the left arm and shortness of breath. He states that he has had similar episodes for the past year however this episode the pain lasted longer and did not improve with rest. He presented to the [facility] emergency department where he was found to have a significant elevated troponin. He was taken to the [facility] with a diagnosis of NSTEMI. Left heart cath demonstrated multivessel coronary artery disease including SUPERVISOR AGRICULTURAL EDUCATION of the proximal LAD, SUPERVISOR AGRICULTURAL EDUCATION of the circumflex and SUPERVISOR AGRICULTURAL EDUCATION of the right coronary artery. Transthoracic echo was performed which demonstrated an ejection fraction of 20 to 25% with a left ventricular end-diastolic diameter of 6.25 cm. Trace mitral regurgitation and trace tricuspid regurgitation were noted. Patient is currently lying in bed without any chest pain. Surgery was consulted to evaluate for coronary artery bypass. Review of Systems Review of Systems Constitutional: Negative for activity change, appetite change, chills and fever. Respiratory: Negative for chest tightness and shortness of breath. Cardiovascular: Positive for chest pain, palpitations and leg swelling. Gastrointestinal: Negative for abdominal pain, nausea and vomiting. Musculoskeletal: Negative for myalgias. Skin: Negative for rash. Neurological: Negative for dizziness. Past Medical History Past Medical History: 09/10/2024: HLD (hyperlipidemia) 09/10/2024: HTN (hypertension) Past Surgical History History reviewed. No pertinent surgical history. Social History Social History Social History Narrative Not on file Family History Family History: Problem Relation Name Age of Onset Heart attack Mother 58 Heart attack Father 58 Diabetes Brother Allergies Patient has no known allergies. Medications Medications Prior to Admission Medication Sig Dispense Refill Last Dose/Taking amLODIPine (Norvasc) 10 MG tablet Take 1 tablet by mouth 1 time each day. Past Week atorvastatin (Lipitor) 20 MG tablet Take 20 mg by mouth 1 time each day. Past Week levothyroxine (Unithroid) 50 MCG tablet Take by mouth in the morning. Take before meals. Past Month losartan-hydroCHLOROthiazide (Hyzaar) 100-12.5 MG tablet Take 1 tablet by mouth 1 time each day. 09/10/2024 Morning Current Outpatient Medications Medication Instructions amLODIPine (Norvasc) 10 MG tablet 1 tablet, Daily atorvastatin (LIPITOR) 20 mg, Daily levothyroxine (Unithroid) 50 MCG tablet Daily before breakfast losartan-hydroCHLOROthiazide (Hyzaar) 100-12.5 MG tablet 1 tablet, Daily Scheduled Meds [Held by provider] amLODIPine, 10 mg, Oral, Daily aspirin EC, 81 mg, Oral, Daily Or aspirin, 300 mg, Rectal, Daily atorvastatin, 20 mg, Oral, Daily docusate sodium, 100 mg, Oral, BID fluticasone, 2 spray, Each Nostril, Daily heparin, 4,000 Units, Intravenous, Once [Held by provider] hydroCHLOROthiazide, 12.5 mg, Oral, Daily [Held by provider] losartan, 100 mg, Oral, Daily regadenoson, 0.4 mg, Intravenous, Oncall sodium chloride, 10 mL, Intravenous, q12h sodium chloride, 10 mL, Intravenous, q12h Continuous Meds heparin, 0.1-40 Units/kg/hr, Last Rate: 16 Units/kg/hr (09/11/24 1609) PRN Meds PRN medications: acetaminophen, calcium gluconate, calcium gluconate, dextrose, dextrose, diphenhydrAMINE, glucagon, heparin, heparin, magnesium oxide, magnesium sulfate, magnesium sulfate, magnesium sulfate, naloxone, nitroglycerin, ondansetron, potassium & sodium phosphates, potassium chloride, potassium chloride, potassium chloride, Potassium chloride, potassium phosphate, potassium phosphate, sennosides, sodium chloride, sodium chloride, sodium chloride, sodium phosphate, sodium phosphate VTE Prophylaxis VTE prophyllaxis: heparin - 1000 units/mL, 1000 units/mL, 1000 units/mL, 50 units/mL Physical Exam Last Recorded Vitals Blood pressure 100/74, pulse 74, temperature 37.1 ?C (98.7 ?F), resp. rate 18, height 1.854 m (6' 1"), weight 90.1 kg (198 lb 10.2 oz), SpO2 97%. General: Patient laying supine in bed, no acute distress. HEENT: EOMI, no scleral icterus Neck: trachea midline, no enlargement of thyroid or lymphadenopathy CV: RRR, normal peripheral pulses Resp: Non labored respirations, normal chest wall excursion GI: Abdomen soft, non tender, non distended. No previous scars or hernias. : No CVA tenderness MSK: Moves all 4 extremities normally, no joint swelling Heme: No lymphadenopathy or purpura/petechiae Neuro: Normal motor/sensation throughout, CN 2-12 intact Psych: normal affect, no evidence of depression or anxiety. Labs Lab Results Component Value Date WBC 8.98 09/11/2024 Hgb 14.7 09/11/2024 Hct 41.4 09/11/2024 Plt Count 215 09/11/2024 Lab Results Component Value Date Sodium Lvl 136 09/10/2024 Potassium Lvl 3.6 09/10/2024 Chloride Lvl 101 09/10/2024 CO2 Lvl 28.4 09/10/2024 BUN <7 (L) 09/10/2024 Creatinine Lvl 1.16 09/10/2024 Glucose Lvl 129 (H) 09/10/2024 POC Glu 148 (H) 09/11/2024 Radiology XR chest 1 view Narrative: PROCEDURE INFORMATION: Exam: XR Chest Exam date and time: 09/11/2024 3:28 PM Age: 59 years old Clinical indication: SOB TECHNIQUE: Imaging protocol: Radiologic exam of the chest. Views: 1 view. COMPARISON: No relevant prior studies available. FINDINGS: Lungs: Low lung volumes are present bilaterally. No consolidation. Bibasilar atelectasis. Pleural spaces: No pleural effusion. No pneumothorax. Heart/Mediastinum: Heart size is within normal limits. Atherosclerotic calcifications. Bones/joints: Degenerative changes of the thoracic spine. Impression: No acute radiographic abnormality. ELECTRONICALLY SIGNED BY PATIENCE BROWN MD ON 09/11/2024 AT 16:08. Cardiac catheterization ASSESSMENT: 1. Non-ST elevation myocardial infarction 2. Coronary artery disease. A 50% distal left main stenosis. A 99% ostial/proximal LAD stenosis, a 100% chronic total occlusion of the LAD being filled by left-left collaterals feeding a diagonal branch that fills the LAD antegrade as well as right-left collaterals from the RCA system. A 900% stenosis in the proximal circumflex prior to a bifid obtuse marginal system with 90% disease/stenosis in the diminutive AV circumflex system. A 100% chronic total occlusion of the mid RCA which fills via bridging collaterals and also provides collateral filling to the LAD. 3. Mildly elevated LVEDP of 18 mmHg. PLAN/RECOMMENDATIONS: - Routine post cardiac catheterization care - Transferred to [facility] for consideration of CABG - Continue medical management including aspirin, high intensity statin, and beta-janeth. Will eventually add a P2Y12 inhibitor. Additional therapy depending on results of echocardiogram - Echocardiogram - Cardiac rehabilitation Transthoracic echo (TTE) complete Left Ventricle: Left ventricle is dilated, LVEDD 6.25cm. Left ventricular regional wall motion abnormalities present. There is global hypokinesis with apical akinesis. Reduced systolic function with an estimated EF of 20 - 25%. Grade II diastolic dysfunction of the left ventricle. Mitral Valve: Trace mitral regurgitation present. Tricuspid Valve: Trace tricuspid regurgitation present. Inadequate TR to estimate the PASP. Assessment and Plan Assessment & Plan NSTEMI (non-ST elevated myocardial infarction) (CMS/HCC) (HCC) HTN (hypertension) HLD (hyperlipidemia) Coronary artery disease involving elim ira coronary artery of elim ira heart with unstable angina pectoris (HCC) Paroxysmal atrial fibrillation (CMS/HCC) (HCC) Acute systolic congestive heart failure (CMS/HCC) (HCC) NYHA Class II STS CALCULATED RISK SCORES: Obtain bilateral carotid duplex Will need viability study Given reduced ejection fraction and dilated ventricle, need to evaluate if myocardium is viable prior to revascularization. Discussed benefits of surgical revascularization at length with patient. Discussed that surgery is relatively high risk given reduced ejection fraction however if myocardium is viable long-term benefits of surgery will likely outweigh the risks Continue heparin drip Continue aspirin Timing of surgery pending full workup, likely early next week if myocardium is viable Reji Dykes DO Cosigned by Reji Dykes DO at 09/16/2024 2:32 PM MOTION PICTURE OPERATOR ON PICTURE OPERATOR ON PICTURE OPERATOR ON PICTURE OPERATOR Nurse Practitioner [facility] 2024-09-10 18:09:43 Associated Order(s): IP CONSULT TO CARDIOLOGY Images from the original note were not included. CARDIOLOGY CONSULTATION NOTE: Chief Complaint/Reason for Consult: Chest pain Consulting Physician: Reji Cordero MD Consulting Service: Emergency Medicine Outpatient Nail Sticker: None History of Present Illness: Ricardo Hanson is a 59-year-old male admitted on 09/10/2024 presenting with chest discomfort. He was lifting some boxes at [employer] where he works when he felt some central chest discomfort with radiation to his left arm associated with dyspnea, diaphoresis, and palpitations. It resolved with rest. He has been having similar episodes for the last year (if not longer). He states that he did not get any urgent attention because of lack of funding. When he would go to a primary care physician, he was told to manage his blood pressure. He has made some strides at improving his overall health including tobacco cessation a couple years ago, avoiding alcohol use, and eating better. Review of Systems: A 12 point review of systems was performed and was negative except as mentioned in the above HPI. Pertinent/Past Medical History: Hypertension Dyslipidemia Prior tobacco abuse Family History: Reviewed and notable for parents who had MIs at the age of 58. Social History: Social History Socioeconomic History Marital status: Never Spouse name: Not on file Number of children: Not on file Years of education: Not on file Highest education level: Not on file Occupational History Not on file Tobacco Use Smoking status: Not on file Smokeless tobacco: Not on file Substance and Sexual Activity Alcohol use: Not on file Drug use: Not on file Sexual activity: Not on file Other Topics Concern Not on file Social History Narrative Not on file Social Drivers of Health Financial Resource Strain: Not on file Food Insecurity: Not on file Transportation Needs: Not on file Physical Activity: Not on file Stress: Not on file Social Connections: Not on file Intimate Partner Violence: Unknown (09/10/2024) Humiliation, Afraid, Rape, and Kick questionnaire Fear of Current or Ex-Partner: No Emotionally Abused: Not on file Physically Abused: Not on file Sexually Abused: Not on file Housing Stability: Not on file Physical Exam: Vitals: 09/10/24 1611 09/10/24 1613 09/10/24 1615 09/10/24 1700 BP: 95/64 104/70 97/59 106/74 Pulse: 55 74 60 74 Resp: 08 09 13 14 Temp: SpO2: 98% 96% 97% 98% No intake or output data in the 24 hours ending 09/10/24 1809 GEN: no acute distress, cooperative with exam HEENT: normocephalic/atraumatic, EOMi, neck supple RESP: normal effort, clear to auscultation bilaterally CVS: S1&S2, RRR, no murmurs/rubs/gallops ABD: soft, non-tender, non-distended, normoactive bowel sounds EXT: Normal bulk/tone, non-tender to palpitation SKIN: Grossly intact, normal turgor JUAN ALBERTO: grossly intact, no overtly focal deficits PSY: AAOx3, normal mood and affect Data: Pertinent labs, imaging, and/or procedures were reviewed as available. Medications: Current Facility-Administered Medications: aspirin EC EC tablet 81 mg, 81 mg, Oral, Daily OR aspirin suppository 300 mg, 300 mg, Rectal, Daily, Tonja Epps, JARED heparin 1000 units/mL injection 1,700 Units, 20 Units/kg, Intravenous, PRN, Reji Isabel MD heparin 1000 units/mL injection 3,400 Units, 40 Units/kg, Intravenous, PRN, Reji Isabel MD heparin 1000 units/mL injection 4,000 Units, 4,000 Units, Intravenous, Once, Reji Isabel MD heparin 50 units/mL in sodium chloride 0.45 %, 0.1-40 Units/kg/hr, Intravenous, Continuous, Reji Isabel MD nitroglycerin (Nitrostat) SL tablet 0.4 mg, 0.4 mg, Sublingual, q5 min PRN, Tonja Epps, JARED sodium chloride (NS) 0.9 % flush 10 mL, 10 mL, Intravenous, q12h, Tonja Epps, JARED sodium chloride (NS) 0.9 % flush 10 mL, 10 mL, Intravenous, PRN, Tonja Epps, AUDIOVISUAL PRODUCTION SPECIALIST sodium chloride 0.9 % infusion 250 mL, 250 mL, Intravenous, PRN, Tonja Epps, AUDIOVISUAL PRODUCTION SPECIALIST No current outpatient medications on file. ASSESSMENT: Ricardo Hanson is a 59-year-old male admitted on 09/10/2024 after presenting with chest pain. His pertinent problem list includes: Non-ST elevation myocardial infarction Paroxysmal atrial fibrillation with intermittent rapid ventricular response Hypertension Dyslipidemia RECOMMENDATIONS/PLAN: - ECG reviewed demonstrating atrial fibrillation with rapid ventricular response and marked ST segment depression concerning for diffuse ischemia. Subsequent ECG demonstrated resolution of atrial fibrillation with persistent ST segment abnormalities albeit to a lesser extent - Initial troponin value of 2360 pg/mL noted - Heparin drip - Aspirin load with maintenance therapy of 81 mg daily - Additional P2Y12 inhibition depending on results of coronary angiography later today - Echocardiogram - Beta-janeth - High intensity statin therapy. Lipid profile needed. Goal LDL <55 mg/dL - Beta-janeth as above for rate control for atrial fibrillation. The patient's [id number] score is at least 2 (hypertension, potential vascular disease) meriting systemic anticoagulation. Will address antiplatelet requirements with coronary angiogram first before committing to triple therapy - Cardiac rehabilitation Thank you for allowing us to participate in the care of this patient. Please call with any questions/concerns. Please be advised that this note was created with the assistance of a dictation software. Please interpret appropriately in the context of possible sight effects specialist errors. Wyatt Mccarthy MD Interventional Cardiology 38 minutes of critical care time was spent on this patient's care. I reviewed lab work, reviewed patient's medications and made appropriate changes, and communicated/coordinated care with other healthcare providers during this time. [facility] History and Physical Notes Date/Time Note Provider Source 2024-09-11 16:13:33 Images from the original note were not included. [facility] ([facility]) Integrated Hospital Medicine Program HISTORY AND PHYSICAL Patient:Ricardo Hanson PCP:PCP Date of :1965 Admission Date:09/10/2024 Attending:Heidy Quiñones MD Consults: Consults CODE Status: Full Code Chief Complaint Chief Complaint Patient presents with Chest Pain HPI HPI: 59-year-old male with past medical history significant for hypertension, hypothyroid and hyperlipidemia presented to the emergency room with complaint of longstanding history of intermittent chest pain. Patient states that he has been dealing with chest pain for over a year and possibly up to 3, however he has been dealing with it at home. He states that in the last year he has been going to his primary care doctor about the chest pain which they have attributed to high blood pressure and started him on medications. Patient describes chest pain as chest pressure that stops him associated with flushing and sweating. He states that he has to stop everything that he is doing and usually will go away, but then it will come back. Patient states that he usually deals with his pain at home. But states that yesterday he was at work and the pain was very strong and did not allow him to do anything. He left work and went to [facility] where he was seen by vulcanized fiber unit operator. Patient underwent cardiac catheterization where he was found to have multivessel CAD. Patient was transferred to our facility for cardiothoracic surgery evaluation. REVIEW OF SYSTEMS: Review of Systems All other systems reviewed and are negative. Past Medical History : He has a past medical history of HLD (hyperlipidemia) (09/10/2024) and HTN (hypertension) (09/10/2024). Past Surgical History : He has no past surgical history on file. Home Medications: Medications Prior to Admission Medication Sig Dispense Refill Last Dose/Taking amLODIPine (Norvasc) 10 MG tablet Take 1 tablet by mouth 1 time each day. Taking atorvastatin (Lipitor) 20 MG tablet Take 20 mg by mouth 1 time each day. Taking losartan-hydroCHLOROthiazide (Hyzaar) 100-12.5 MG tablet Take 1 tablet by mouth 1 time each day. Taking Allergies: Patient has no known allergies. Social History: He reports that he has never smoked. He has never used smokeless tobacco. He reports current drug use. Drug: Marijuana. No history on file for alcohol use. Family History: Family History: Problem Relation Name Age of Onset Heart attack Mother 58 Heart attack Father 58 Diabetes Brother Physical Exam: PHYSICAL EXAMINATION: Visit Vitals BP 100/74 Pulse 74 Temp 37.1 ?C (98.7 ?F) Resp 18 Ht 1.854 m (6' 1") Wt 90.1 kg (198 lb 10.2 oz) SpO2 97% BMI 26.21 kg/m? Smoking Status Never BSA 2.15 m? Physical Exam: Constitutional: General: He is not in acute distress. Appearance: Normal appearance. He is normal weight. HENT: Head: Normocephalic and atraumatic. Nose: Nose normal. Mouth/Throat: Mouth: Mucous membranes are moist. Pharynx: Oropharynx is clear. Eyes: Extraocular Movements: Extraocular movements intact. Conjunctiva/sclera: Conjunctivae normal. Cardiovascular: Rate and Rhythm: Normal rate and regular rhythm. Pulmonary: Effort: Pulmonary effort is normal. Breath sounds: Normal breath sounds. Abdominal: General: Bowel sounds are normal. Palpations: Abdomen is soft. Musculoskeletal: General: Normal range of motion. Cervical back: Normal range of motion and neck supple. Skin: General: Skin is warm and dry. Findings: No bruising. Neurological: General: No focal deficit present. Mental Status: He is alert and oriented to person, place, and time. Mental status is at baseline. Psychiatric: Mood and Affect: Mood normal. Behavior: Behavior normal. Labs & Imaging: LABORATORY DATA: Pertinent Labs : Lab Results Component Value Date WBC 8.98 09/11/2024 Hgb 14.7 09/11/2024 Hct 41.4 09/11/2024 Plt Count 215 09/11/2024 Lab Results Component Value Date Sodium Lvl 136 09/10/2024 Potassium Lvl 3.6 09/10/2024 Chloride Lvl 101 09/10/2024 CO2 Lvl 28.4 09/10/2024 BUN <7 (L) 09/10/2024 Creatinine Lvl 1.16 09/10/2024 Glucose Lvl 129 (H) 09/10/2024 POC Glu 148 (H) 09/11/2024 No components found for: "TSH;2" RADIOLOGY DATA: XR chest 1 view Narrative: PROCEDURE INFORMATION: Exam: XR Chest Exam date and time: 09/11/2024 3:28 PM Age: 59 years old Clinical indication: SOB TECHNIQUE: Imaging protocol: Radiologic exam of the chest. Views: 1 view. COMPARISON: No relevant prior studies available. FINDINGS: Lungs: Low lung volumes are present bilaterally. No consolidation. Bibasilar atelectasis. Pleural spaces: No pleural effusion. No pneumothorax. Heart/Mediastinum: Heart size is within normal limits. Atherosclerotic calcifications. Bones/joints: Degenerative changes of the thoracic spine. Impression: No acute radiographic abnormality. ELECTRONICALLY SIGNED BY PATIENCE BROWN MD ON 09/11/2024 AT 16:08. Cardiac catheterization ASSESSMENT: 1. Non-ST elevation myocardial infarction 2. Coronary artery disease. A 50% distal left main stenosis. A 99% ostial/proximal LAD stenosis, a 100% chronic total occlusion of the LAD being filled by left-left collaterals feeding a diagonal branch that fills the LAD antegrade as well as right-left collaterals from the RCA system. A 900% stenosis in the proximal circumflex prior to a bifid obtuse marginal system with 90% disease/stenosis in the diminutive AV circumflex system. A 100% chronic total occlusion of the mid RCA which fills via bridging collaterals and also provides collateral filling to the LAD. 3. Mildly elevated LVEDP of 18 mmHg. PLAN/RECOMMENDATIONS: - Routine post cardiac catheterization care - Transferred to [facility] for consideration of CABG - Continue medical management including aspirin, high intensity statin, and beta-janeth. Will eventually add a P2Y12 inhibitor. Additional therapy depending on results of echocardiogram - Echocardiogram - Cardiac rehabilitation Transthoracic echo (TTE) complete Left Ventricle: Left ventricle is dilated, LVEDD 6.25cm. Left ventricular regional wall motion abnormalities present. There is global hypokinesis with apical akinesis. Reduced systolic function with an estimated EF of 20 - 25%. Grade II diastolic dysfunction of the left ventricle. Mitral Valve: Trace mitral regurgitation present. Tricuspid Valve: Trace tricuspid regurgitation present. Inadequate TR to estimate the PASP. Assessment & Plan: Assessment & Plan NSTEMI (non-ST elevated myocardial infarction) (CMS/HCC) ([facility]) Continue heparin gtt for NSTEMI and AF Cardiology on board, plan for [facility] Continue ASA, hold off on plavix given possibility for CABG evaluation Transferred to our facility for higher level of care, pending CV Surgery evaluation Continue statin, holding BB and ARB due to hypotension Coronary artery disease involving elim ira coronary artery of elim ira heart with unstable angina pectoris ([facility]) Pending evaluation by CV Surgery evaluation HTN (hypertension) Blood pressures are low at this time Hold antihypertensives at this mirtha Consider PRN medications if systolics only if >180 Paroxysmal atrial fibrillation ([facility]) ([facility]) Patient is currently rate controlled Patient currently on heparin gtt but will need anticoagulation on discharge Acute systolic congestive heart failure ([facility]) ([facility]) Reviewed TTE from previous hospitalization at [facility] EF 20-25% with apical akinesis Consider diuresis We will continue strict I's and O's, 2 L fluid restriction, daily weights We will continue aspirin, statin HLD (hyperlipidemia) Continue statin DVT prophylaxis: heparin - 1000 units/mL, 1000 units/mL, 1000 units/mL, 50 units/mL Current Diet: NPO Diet NPO Diet Adult Diet Heart Healthy Disposition Anticipated: Admit to telemetry Heidy Quiñones MD [facility] 2024-09-10 18:51:29 History Of Present Illness Ricardo Hanson is a 59 y.o. male with a PMHx of HTN and HLD presenting with chest pain on going for the past year and worsening today. Pt states for the past year he has had stable angina that he has treated at home by taking multiple doses of aspirin whenever he is having pain along with being compliant with his HTN and HLD medications. Pt states today he was at work and overexerted himself, became flushed and started having chest pain. Upon driving to the ED, he started having palpitations and was found to be in AFIB w/ rvr. Corrected with metoprolol 5mg along with ASA. At this time, pt denies any pain or SOB, states his symptoms have completed subsided. Pt states both of his parents passed at the age of 58 due to heart attacks. Upon arrival to bedside, pt is resting comfortably in no acute distress. Lungs sounds are clear to auscultation bilaterally and heart sounds are audible with RRR. Skin is consistent with ethnicity. In the ER, labs shows elevated troponin 2,360 -> 5,250 Patient is admitted to inpatient tele for further evaluation and treatment. Past Medical History He has a past medical history of HLD (hyperlipidemia) (09/10/2024) and HTN (hypertension) (09/10/2024). Surgical History He has no past surgical history on file. Family History Family History: Problem Relation Name Age of Onset Heart attack Mother 58 Heart attack Father 58 Diabetes Brother Social History He has no history on file for tobacco use, alcohol use, and drug use. Allergies Patient has no known allergies. Medications Medications Prior to Admission Medication Sig Dispense Refill Last Dose/Taking amLODIPine (Norvasc) 10 MG tablet Take 1 tablet by mouth 1 time each day. Taking atorvastatin (Lipitor) 20 MG tablet Take 20 mg by mouth 1 time each day. Taking losartan-hydroCHLOROthiazide (Hyzaar) 100-12.5 MG tablet Take 1 tablet by mouth 1 time each day. Taking Review of Systems Respiratory: Positive for chest tightness. All other systems reviewed and are negative. Physical Exam: Vitals and nursing note reviewed. Constitutional: General: He is awake. He is not in acute distress. Appearance: Normal appearance. He is well-developed and well-groomed. HENT: Head: Normocephalic and atraumatic. Right Ear: Tympanic membrane normal. Left Ear: Tympanic membrane normal. Nose: Nose normal. Mouth/Throat: Lips: Clarissa. Mouth: Mucous membranes are dry. Pharynx: No oropharyngeal exudate or posterior oropharyngeal erythema. Eyes: General: Lids are normal. Right eye: No discharge. Left eye: No discharge. Extraocular Movements: Extraocular movements intact. Conjunctiva/sclera: Conjunctivae normal. Pupils: Pupils are equal, round, and reactive to light. Neck: Thyroid: No thyromegaly. Vascular: No JVD. Cardiovascular: Rate and Rhythm: Normal rate and regular rhythm. Heart sounds: Normal heart sounds. No murmur heard. No friction rub. No gallop. Pulmonary: Effort: Pulmonary effort is normal. No respiratory distress. Breath sounds: No wheezing, rhonchi or rales. Comments: NORMAL RESPIRATORY EFFORT, NO USE OF ACCESSORY MUSCLES OF RESPIRATION, NO LABORED BREATHING OBSERVED Abdominal: General: Bowel sounds are normal. There is no distension. Palpations: Abdomen is soft. There is no mass. Tenderness: There is no abdominal tenderness. There is no guarding or rebound. Hernia: No hernia is present. Musculoskeletal: General: Normal range of motion. Cervical back: Neck supple. Right lower leg: No edema. Left lower leg: No edema. Comments: NO CHANGES TO JOINTS OBSERVED Skin: General: Skin is warm and dry. Capillary Refill: Capillary refill takes less than 2 seconds. Neurological: General: No focal deficit present. Mental Status: He is alert and oriented to person, place, and time. Mental status is at baseline. Cranial Nerves: No cranial nerve deficit. Sensory: No sensory deficit. Deep Tendon Reflexes: Reflexes normal. Psychiatric: Attention and Perception: Attention normal. Speech: Speech normal. Behavior: Behavior is cooperative. Cognition and Memory: Cognition normal. Last Recorded Vitals Blood pressure 113/86, pulse 69, temperature 36.9 ?C (98.4 ?F), temperature source Temporal, resp. rate 18, height 1.854 m (6' 1"), weight 90.1 kg (198 lb 10.2 oz), SpO2 94%. Relevant Results Labs: Lab Results Component Value Date WBC 9.24 09/10/2024 Hgb 14.2 09/10/2024 Hct 40.5 09/10/2024 Plt Count 239 09/10/2024 Lab Results Component Value Date Sodium Lvl 136 09/10/2024 Potassium Lvl 3.6 09/10/2024 Chloride Lvl 101 09/10/2024 CO2 Lvl 28.4 09/10/2024 BUN <7 (L) 09/10/2024 Creatinine Lvl 1.16 09/10/2024 Glucose Lvl 129 (H) 09/10/2024 Lab Results Component Value Date Calcium Lvl 9.4 09/10/2024 Magnesium 1.99 09/10/2024 Phosphorus Lvl 2.4 09/10/2024 No results found for: "AST", "ALT", "ALKPHOS" Lab Results Component Value Date PTT 27.7 09/10/2024 Prothrombin Time (PT) 14.2 09/10/2024 INR 1.08 09/10/2024 No results found for: "COLORU", "CLARITYU", "SPECGRAV", "PHUR", "PROTUR", "GLUCOSEU", "KETONESU", "NITRITEU", "LEUKOCYTESUR", "BILIRUBINUR", "UROBILINOGEN" Lab Results Component Value Date HS Troponin I 1 Hour 5,250 (H) 09/10/2024 HS Troponin I 0 to 1 Hour Delta 2,890 09/10/2024 HS Troponin I Baseline 2,360 (H) 09/10/2024 Imaging: Cardiac catheterization Final Result Transthoracic echo (TTE) complete (Results Pending) Assessment & Plan NSTEMI (non-ST elevated myocardial infarction) (CMS/HCC) ([facility]) Plan - Admission to inpatient for further management and care - ER consulted cardiology; follow Dr. Mccarthy recommends heparin, asa pending cardiac cath in am - Heparin gtt initiated; Troponin trending upward. Continue to trend trop and follow heparin protocol - Scheduled ASA 81 daily - Pending ECHO - Continue with home meds for htn and hld - PRN hydralazine for BP > 170s systolic - PRN pain meds of tylenol and oxy HTN (hypertension) - Amlodipine 10mg - Losartan HLD (hyperlipidemia) - Atorvastatin 20 Current Diet: NPO Diet NPO except: Ice chips, Sips with meds NPO Diet Adult Diet Heart Healthy DVT: Heparin, SCD Disposition: Patient is admitted under inpatient services with pending transfer to other facility for possible bypass ACP Status: After careful discussion with patient and family, patient and family would like all measures performed in the evident of a cardiac or respiratory arrest. Patient is a full code. Assessment and treatment plan has been discussed and agreed with Dr. Bradley Epps, [facility], [place] [phone] This note was dictated with the use of [employer] speech recognition software. Please use best judgement when interpreting and excuse any sight effects specialist errors. Cosigned by Ayana Hargrove MD at 09/11/2024 7:43 AM MOTION PICTURE OPERATOR ON PICTURE OPERATOR ON PICTURE OPERATOR Associated attestation - Ayana Hargrove MD - 09/11/2024 7:43 AM MOTION PICTURE OPERATOR Attending Attestation: I personally met and examined the patient working collaboratively with YOSVANY Tonja Epps. I personally and independently interpreted the test results and formulated/approved the substantive portion of the medical decision making as outlined below. In brief patient is a 59-year-old male with past medical history significant for hypertension and hyperlipidemia presented to the emergency room with complaint of longstanding history of intermittent chest pain for at least a year may be more, which has been progressively worsening over the last few weeks. In the emergency room patient was found to have abnormal EKG and markedly elevated troponin. Case discussed with cardiology, plan for emergent cardiac catheterization treatment. For now patient started on heparin drip for ACS protocol. Continue with aspirin and high intensity statin. Follow-up echo, lipid panel and A1c level. Further recommendation possible course [facility] Procedure Notes Date/Time Note Provider Source 2024-09-19 19:25:36 Images from the original note were not included. CARDIAC CATHETERIZATION PROCEDURE NOTE: DATE: September 19, 2024 EQUIPMENT MECHANIC: Wyatt Mccarthy MD PROCEDURES PERFORMED: Moderate sedation Ultrasound-guided vascular access Selective coronary angiography Intravascular lithotripsy of the LAD using a Shockwave 3.0 x 12 mm balloon PCI of the proximal-mid LAD using overlapping Medtronic [place] Licking 3.0 x 18 mm and 2.75 x 26 mm FIORELLA PCI of the distal left main complex with a T and protrusion technique. Medtronic [place] Licking 3.5 x 18 mm FIORELLA extending into the LAD and Medtronic [place] Licking 2.75 x 26 mm FIORELLA extending into the circumflex Removal of Impella CP (separate from insertion) CLINICAL INDICATIONS: 59-year-old male with NSTEMI and multivessel coronary artery disease but turndown for CABG presenting for staged intervention of the left coronary vessels FLUOROSCOPIC TIME: 22.1 minutes RADIATION EXPOSURE: 1115 mGy CONTRAST: 140 mL Visipaque ESTIMATED BLOOD LOSS: 100 mL SEDATION: A total of 5 mg of midazolam and 125 mg of fentanyl were administered to the patient. Sedation was monitored in conjunction with the nursing staff for a total of 132 minutes. PROCEDURE IN DETAIL: After informed consent was obtained, the patient was brought to the cardiac catheterization laboratory where he was prepped and draped in sterile fashion. A timeout was conducted to confirm the correct patient and procedure. The skin overlying the patient's left femoral vasculature was anesthetized with 1% lidocaine. Under direct ultrasound guidance, and using micropuncture technique, the left femoral artery was accessed with placement of a 6 Honduran sheath. Selective left coronary angiography was performed with a 6 [place]uran EBU 3.5 guide catheter. We then proceeded to PCI. Therapeutic anticoagulation was achieved with heparin and verified by ACT. The lesion in the LAD was crossed using a 300 cm Fielder XT guidewire and a Fine Cross microcatheter. Once in a decent position, balloon angioplasty was performed with a Friends Around Emerge NC 2.0 x 8 mm NC balloon. Additional angioplasty was performed with a 2.5 x 15 mm balloon. A 190 cm Ladarius Blue guidewire was positioned in the circumflex while the balloons were used to postdilated the ostial vessel. Additional balloon angioplasty was performed with a 3.0 x 8 mm balloon over serial inflations. Next, intravascular lithotripsy was performed with a 3.0 x 12 mm Shockwave balloon. Repeat angiography did not demonstrate any immediate complication. With assistance from a GuideLiner guide web marketing coordinator, and additional balloon angioplasty with a Medtronic Sprinter 3.0 x 15 mm balloon, a Medtronic [place] Licking 3.0 x 28 mm FIORELLA was deployed in the mid vessel. A 3.0 x 16 mm FIORELLA was deployed more proximally in overlapping fashion. We then turned our attention to the circumflex. The lesion was wired with a Ladarius Blue Blue guidewire. Balloon angioplasty was performed with a 2.5 x 15 mm balloon. A Medtronic [place] Licking 2.75 x 26 mm FIORELLA was then deployed in the circumflex. We then focused our attention to PCI of the left main complex. A Medtronic advance Licking 2.75 x 26 mm FIORELLA was positioned in the circumflex. Medtronic [place] Licking 3.5 x 18 mm FIORELLA was positioned in the LAD. In T and protrusion fashion, the stents were deployed. New wires were used to cross the stents. Kissing inflation was performed with a 3.5 x 12 mm NC balloon into the LAD and a 2.75 x 8 mm NC balloon into the circumflex. Final angiography demonstrated an adequate result without any evidence of immediate complication. At the end of the case, all equipment was removed. The Impella device was weaned and removed. The prior Pro-glide's were fully deployed. An 8 [place]uran Angio-Seal was also used to achieve hemostasis. Hemostasis of the left femoral arterial access site was achieved with a 6 [place]uran Angio-Seal. The patient tolerated the procedure well and was transferred out of the cardiac catheterization laboratory without any immediate complication. SELECTIVE CORONARY ANGIOGRAPHY: LEFT MAIN: Arises from the left coronary cusp. Distally bifurcates into the left anterior descending and left circumflex coronary arteries. Calcified system with a 50% stenosis distally. LAD: Courses over the anterior interventricular groove. There is a 95% stenosis ostially. On the prior angiogram, there was a 100% chronic total occlusion at the mid segment which was filling via a diagonal branch and the RCA system but repeat angiography demonstrated improved flow. There is still a 90+ percent stenosis, however. CIRCUMFLEX: Courses in the posterior atrioventricular groove. There is a 99% stenosis proximal to a large, bifid obtuse marginal system. After the obtuse marginal branch, there is 90% stenosis and diffuse disease in the diminutive AV circumflex system. RCA: Not engaged as this is a staged intervention of the left sided vessels. LESION DETAILS Left Main Pre-PCI: 60% stenosis with RONI 3 flow Post-PCI: 0% stenosis with RONI 3 flow LAD Pre-PCI: 90% stenosis with RONI 2 flow Post-PCI: 10% stenosis with RONI 3 flow Circumflex Pre-PCI: 90% stenosis with RONI 3 flow Post-PCI: 0% stenosis with RONI 3 flow ASSESSMENT: NSTEMI with multivessel coronary artery disease and surgical turndown Prior PCI of the RCA open disease refer to separate procedure note). Post left-sided intervention, collaterals are seen to the RCA and likely represent poor outflow from the distal vessel Intravascular lithotripsy of the LAD using a Shockwave 3.0 x 12 mm balloon. PCI of the proximal-mid LAD using overlapping Medtronic Sam Licking 3.0 x 18 mm and 2.75 x 26 mm FIORELLA. PCI of the distal left main complex with a T and protrusion technique. Medtronic Sam Licking 3.5 x 18 mm FIORELLA extending into the LAD and Medtronic [place] Licking 2.75 x 26 mm FIORELLA extending into the circumflex Removal of Impella CP (separate from insertion) POST-PROCEDURE PLAN: Routine postcardiac catheterization care Guideline directed medical therapy for acute coronary syndrome and heart failure with reduced ejection fraction Cardiac rehabilitation Wyatt Mccarthy MD Interventional Cardiology [facility] 2024-09-19 16:57:40 Airway: Neck ROM - full Cardiovascular: Rhythm: regular Rate: normal Pulmonary: clear to auscultation Anesthesia and Sedation History: Previous anesthesia or sedation - Yes History of difficult intubation - No History of anesthesia/sedation complications - No Airway Assessment: History of cervical/neck problems, craniofacial abnormality, head/neck surgery or deformity - No Increased risk of airway obstruction, sleep apnea, obesity >100% ideal body weight - No Mallampati class - I. ASA 3 Plan: Sedation plan - Monitor per policy Goal of sedation - Sedation Level of procedural sedation - Moderate sedation [facility] 2024-09-17 10:34:42 CARDIAC CATHETERIZATION PROCEDURE NOTE: DATE: September 17, 2024 EQUIPMENT MECHANIC: Wyatt Mccarthy MD PROCEDURES PERFORMED: Moderate sedation Ultrasound-guided vascular access Left heart catheterization Insertion of Impella CP Selective coronary angiography PCI of the proximal-distal RCA using overlapping Medtronic Synergy 3.0 x 16 mm, 2.75 x 32 mm, and 2.25 x 16 mm FIORELLA. CLINICAL INDICATIONS: 59 year old patient with NSTEMI and turndown for initial bypass consideration FLUOROSCOPIC TIME: 33.6 minutes RADIATION EXPOSURE: 799 mGy CONTRAST: 260 mL Visipaque ESTIMATED BLOOD LOSS: <100 mL SEDATION: A total of 4 mg of midazolam and 125 mg of fentanyl were administered to the patient. Sedation was monitored in conjunction with the nursing staff for a total of 122 minutes. PROCEDURE IN DETAIL: After informed consent was obtained, the patient was brought to the cardiac catheterization laboratory with a were prepped and draped in sterile fashion. A timeout was conducted to confirm the correct patient procedure. The skin overlying the patient's right femoral vasculature was anesthetized 1% lidocaine. Under ultrasound guidance, and using micropuncture technique, the right femoral artery was accessed with placement of a 6 Honduran sheath. Femoral angiography was performed to assess the suitability of an Impella CP device. Next, the arteriotomy was preclosed using 2 Pro-glide devices. Then, the Impella CP peel-away sheath was advanced over a stiff guidewire. Therapeutic anticoagulation was achieved with heparin and verified by ACT throughout the remainder of the case. The aortic valve was crossed using a 6 Honduran pigtail catheter. Left heart catheterization was performed. A 0.018 inch guidewire was advanced through the pigtail catheter which was subsequently taken out of the body. The Impella CP device was prepped and advanced across the aortic valve. Impella flows were started to maintain throughout the remainder of the case. A proprietary sheath was inserted through the peel-away sheath. The decision was made to fix the RCA instead of fixing the circumflex (as previously discussed with the surgical service) with not be advisable given the inflow disease coming from the left main. The RCA was engaged using a 6 [place]uran AL 0.75 guide catheter. There was significant difficulty wiring across the lesion. A Melinda 2nd wire, Fielder XT wire and a aerobics teacher wire were ultimately used to cross the lesion. There was concern about which vessel we were in distally. Angiograms were reviewed with another vulcanized fiber unit operator to felt we were in a distal true lumen of the RCA. There were several RV marginal branches that I initially thought I was in. Balloon angioplasty was performed with a 2.0 x 15 mm balloon. Next, the distal RCA was stented using a Keller Synergy 2.25 x 16 mm FIORELLA. A 2.75 x 32 mm FIORELLA was deployed in the mid vessel. A 3.0 x 16 mm FIORELLA was deployed in the proximal vessel. Final angiography demonstrated adequate flow although the flow through the acute RV marginal branches were compromised. Next, the AL guide was replaced with a 6 Honduran EBU 3.5 guide catheter. Angiography of the left system was performed. The LAD actually had improved antegrade flow although it was still significantly disease. Given the amount of contrast utilized, the decision was made to leave the Impella in place and have the patient return for staged intervention. The end of the case, the Impella she was secured in place and the other equipment was removed. The patient tolerated the procedure well and was transferred out of the cardiac catheterization laboratory without any immediate complication. FINDINGS: SELECTIVE CORONARY ANGIOGRAPHY: Arises from the left coronary cusp. Distally bifurcates into the left anterior descending and left circumflex coronary arteries. Calcified system with a 50% stenosis distally. LAD: Courses over the anterior interventricular groove. There is a 99% stenosis ostially. On the prior angiogram, there was a 100% chronic total occlusion at the mid segment which was filling via a diagonal branch and the RCA system but repeat angiography demonstrated improved flow. There is still a 90+ percent stenosis, however. Circumflex: Courses in the posterior atrioventricular groove. There is a 99% stenosis proximal to a large, bifid obtuse marginal system. After the obtuse marginal branch, there is 90% stenosis and diffuse disease in the diminutive AV circumflex system. RCA: Arises from the right coronary cusp. Dominant for posterior circulation. There is a 100% chronic total occlusion in the mid RCA which fills via bridging collaterals and also provides collaterals to the LAD in retrograde fashion. LEFT HEART CATHETERIZATION: LVEDP: 17 mmHg ASSESSMENT: Non-ST elevation myocardial infarction Heart failure with reduced ejection fraction Impella protected PCI of the proximal-distal RCA using overlapping Keller Synergy 3.0 x 16 mm, 2.75 x 32 mm, and 2.25 x 16 mm FIORELLA POST-PROCEDURE PLAN: Routine postcardiac catheterization care Continue guideline medical therapy for heart failure and coronary artery disease Return for staged intervention of the left sided vessels Wyatt Mccarthy MD Interventional Cardiology [facility] 2024-09-17 08:01:23 Airway: Neck ROM - full Cardiovascular: Rhythm: regular Rate: normal Pulmonary: clear to auscultation Anesthesia and Sedation History: Previous anesthesia or sedation - Yes History of difficult intubation - No History of anesthesia/sedation complications - No Airway Assessment: History of cervical/neck problems, craniofacial abnormality, head/neck surgery or deformity - No Increased risk of airway obstruction, sleep apnea, obesity >100% ideal body weight - No Mallampati class - I. ASA 4 Plan: Sedation plan - Monitor per policy Goal of sedation - Sedation Level of procedural sedation - Moderate sedation [facility] Notes Date/Time Note Provider Source Referral ID Status Reason Start Date Expiration Date Visits Requested Visits Authorized [id number] Pending Review Specialty Services Required 03/18/2025 36 36 ON PICTURE OPERATOR* Consultation (Routine) - Pending Review Specialty Diagnoses / Procedures Referred By Vikas robles Referred To Contact Cardiac Rehabilitation Diagnoses NSTEMI (non-ST elevated myocardial infarction) ([facility]/HCC) ([facility]) Procedures NM OFFICE/OUTPATIENT NEW HIGH MDM 60-74 MINUTES [place] [id number] [phone] Phone: tel: fax: [facility] (Cardiac Rehab) [id number] [place] [phone] Phone: tel: fax: Referral ID Status Reason Start Date Expiration Date Visits Requested Visits Authorized [id number] Pending Review Specialty Services Required 4 03/16/2025 36 36 ON PICTURE OPERATOR* Consultation (Routine) - Pending Review Specialty Diagnoses / Procedures Referred By Contliliam t Referred To Contact Cardiac Rehabilitation Diagnoses NSTEMI (non-ST elevated myocardial infarction) ([facility]/HCC) ([facility]) Procedures NM OFFICE/OUTPATIENT NEW HIGH MDM 60-74 [place]UT[place] [id number] [phone] Phone: tel: fax: [facility] (Cardiac Rehab) [address] [place] [phone] Phone: tel: fax: Referral ID Status Reason Start Date Expiration Date Visits Requested Visits Authorized [id number] Pending Review Specialty Services Required 4 03/09/2025 36 36 ON PICTURE OPERATOR [id number] 14:40:20* [id number] 14:40:20 [id number] 14:40:20* Audit-C Score Answer Date of Assessment Author 3 09/11/2024 5:47 AM MOTION PICTURE OPERATOR Liliana Corey RN * Intimate Partner Violence Question Answer Date of Assessment Author Within the last year, have y ou been humiliated or emotionally abused in other ways by your partner or ex-partner? No 09/11/2024 5:47 AM Liliana Levy RN Within the last year, have y ou been afraid of your partner or ex-partner? No 09/10/2024 11:00 PM Liliana Levy Ma, RN Within the last year, have y ou been raped or forced to have any kind of sexual activity by your partner or ex-partner? No 09/11/2024 5:47 AM Liliana Levy RN Within the last year, have y ou been kicked, hit, slapped, or otherwise physically hurt by your partner or ex-partner? No 09/11/2024 5:47 AM Liliana Levy RN * * Calculated C-SSRS Risk Score (Lifetime/Recent) Answer Date of Assessment Author No Risk Indicated 09/10/2024 4:00 PM Gera Good RN * Long Suicide Severity Rating Scale (Screener/Recent Self-Report) Question Answer Date of Assessment Author 1. Wish to be (Past 1 Month) No 024 4:00 PM Gera Good RN 2. Non-Specific Active Suici carolina Thoughts (Past 1 Month) No 09/10/2024 4:00 PM Gera Good RN 6. Suicidal Behavior (Lifetime) No 4:00 PM Gera Good RN [id number] 14:40:20* Abisai Camacho MD - 09/21/2024 11:04 AM MOTION PICTURE OPERATOR Date of discharge: 09/21/2024 Discharge Diagnosis Principal Problem: NSTEMI (non-ST elevated myocardial infarction) (CMS/HCC) ([facility]) Active Problems: Coronary artery disease involving elim ira coronary artery of elim ira heart with unstable angina pectoris (HCC) Paroxysmal atrial fibrillation (CMS/HCC) (HCC) Acute systolic congestive heart failure (CMS/HCC) (HCC) HTN (hypertension) HLD (hyperlipidemia) Thrombocytopenia (HCC) CHF (congestive heart failure) (CMS/HCC) (HCC) Ischemic cardiomyopathy Resolved Problems: Cardiogenic shock ([facility]) Hospital Course Mr. Ricardo Hanson is a 59-year-old male with past medical history significant for hypertension, hypothyroid and hyperlipidemia presented to the emergency room with complaint of longstanding history of intermittent chest pain. Patient underwent coronary angiography on 09/10/2024 at [facility] which demonstrated a subtotal occlusion of the proximal LAD with left-left collateral and right-left collateral filling, severe stenosis in the proximal circumflex involving an obtuse marginal branch, a SUPERVISOR AGRICULTURAL EDUCATION of the mid RCA with bridging collaterals. Transferred to [facility] for cardiothoracic surgery evaluation and potential bypass but ultimately turned down because of lack of suitable bypass conduits. - Status post PCI (09/17/2024) of the proximal-distal RCA using overlapping Keller Synergy 3.0 x 16 mm, 2.75 x 30 mm and 2.25 x 16 mm FIORELLA - Staged PCI on 09/19/2024. Intravascular lithotripsy of the LAD using a Shockwave 3.0 x 12 mm balloon. PCI of the proximal-mid LAD using overlapping [employer]tronic [place] 3.0 x 18 mm and 2.75 x 26 mm FIORELLA. PCI of the distal left main complex with a T and protrusion technique. Medtronic [place] 3.5 x 18 mm FIORELLA extending into the LAD and Medtronic [place] 2.75 x 26 mm FIORELLA extending into the circumflex. Impella removed. Medically stable and cleared for discharge home by cardiology on DAPT, high intensity statin, BB and lisinopril. BP on lower side so GDMT cautiously initiated. Lifevest and anticoagulation discussed with patient by cardiology but he deferred them for now. Instructed patient to report to PCP in case of chest pain, shortness of breath, fever, chills, cough or other complaints. Counseled about importance of medication compliance and when to seek additional care. Also counseled about diet and exercise. Needs to follow up with vulcanized fiber unit operator as scheduled. He demonstrated understanding. Information Provided to Patient/Family I discussed with the patient/family details of the stay. See After Visit Summary which were reviewed and shared with patient/family. Operative Procedures Performed Procedure(s): Percutaneous coronary intervention Pertinent Physical Exam At Time of Discharge Physical Exam: Vitals and nursing note reviewed. Constitutional: Appearance: Normal appearance. HENT: Head: Normocephalic and atraumatic. Nose: Nose normal. Mouth/Throat: Mouth: Mucous membranes are moist. Eyes: Extraocular Movements: Extraocular movements intact. Pupils: Pupils are equal, round, and reactive to light. Cardiovascular: Rate and Rhythm: Normal rate and regular rhythm. Pulses: Normal pulses. Heart sounds: Normal heart sounds. Pulmonary: Effort: Pulmonary effort is normal. Breath sounds: Normal breath sounds. Abdominal: General: Bowel sounds are normal. Palpations: Abdomen is soft. Musculoskeletal: General: Normal range of motion. Cervical back: Normal range of motion and neck supple. Skin: General: Skin is warm and dry. Capillary Refill: Capillary refill takes more than 3 seconds. Findings: No lesion or rash. Neurological: General: No focal deficit present. Mental Status: He is alert and oriented to person, place, and time. Mental status is at baseline. Cranial Nerves: No cranial nerve deficit. Sensory: No sensory deficit. Motor: No weakness. Psychiatric: Mood and Affect: Mood normal. Behavior: Behavior normal. Patient Condition at Discharge Stable Disposition Home Discharge Medications New aspirin EC 81 MG EC tablet - 81 mg Daily famotidine (Pepcid) 20 MG tablet - 20 mg 2 times daily lisinopril 2.5 MG tablet - 2.5 mg Daily metoprolol tartrate (Lopressor) 25 MG tablet - 12.5 mg Every 12 hours scheduled prasugrel (Effient) 10 MG tablet - 10 mg Daily Changed atorvastatin (Lipitor) 80 MG tablet - 80 mg Nightly - Dose changed from "20 mg" to "80 mg". Frequency changed from "Daily" to "Nightly". Stopped amLODIPine (Norvasc) 10 MG tablet - 1 tablet Daily losartan-hydroCHLOROthiazide (Hyzaar) 100-12.5 MG tablet - 1 tablet Daily Continued levothyroxine (Unithroid) 50 MCG tablet - Daily before breakfast Test Results Pending At Discharge None Issues Requiring Follow-Up Cardiology follow up Outpatient Follow-Up Cardiac Rehabilitation Phase II Referral 09/10/2024 (Approximate) [facility] (Cardiac Rehab) [phone] [id number] [facility] [phone] Cardiac Rehabilitation Phase II Referral 09/17/2024 (Approximate) [facility] (Cardiac Rehab) [phone] [id number] [facility] [phone] Cardiac Rehabilitation Phase II Referral 09/19/2024 (Approximate) [facility] (Cardiac Rehab) [phone] [id number] [address] [facility] [id number] Follow Up In Cardiology 09/28/2024 Wyatt Mccarthy MD Follow Up In Internal Medicine 09/28/2024 Time Spent: I have spent total 40 minutes completing this discharge. ON PICTURE OPERATOR * Ayana Hargrove MD - 09/11/2024 11:41 AM MOTION PICTURE OPERATOR Date of discharge: 09/11/2024 Discharge Diagnosis Principal Problem: NSTEMI (non-ST elevated myocardial infarction) (CMS/HCC) (HCC) Active Problems: HTN (hypertension) HLD (hyperlipidemia) Coronary artery disease involving elim ira coronary artery of elim ira heart with unstable angina pectoris (HCC) Resolved Problems: * No resolved hospital problems. * Hospital Course In brief patient is a 59-year-old male with past medical history significant for hypertension and hyperlipidemia presented to the emergency room with complaint of longstanding history of intermittent chest pain for at least a year may be more, which has been progressively worsening over the last few weeks. In the emergency room patient was found to have abnormal EKG and markedly elevated troponin. Case discussed with cardiology, plan for emergent cardiac catheterization treatment. For now patient started on heparin drip for ACS protocol. Continue with aspirin and high intensity statin. Follow-up echo, lipid panel and A1c level. Further recommendation possible course Patient status post cardiac catheterization which demonstrated multivessel CAD. Cardiology recommending transfer to [facility] for evaluation for CABG Information Provided to Patient/Family I discussed with the patient/family details of the stay. See After Visit Summary which were reviewed and shared with patient/family. Operative Procedures Performed Procedure(s): Left heart cath Percutaneous coronary intervention Pertinent Physical Exam At Time of Discharge Physical Exam: Patient seen and evaluated on the day of discharge. No acute distress. Normal S1-S2. Lungs clear to auscultation bilaterally. No abdominal tenderness to palpation. No lower extremity edema Patient Condition at Discharge Stable Disposition Hospital - Discharge Medications Continued amLODIPine (Norvasc) 10 MG tablet - 1 tablet Daily atorvastatin (Lipitor) 20 MG tablet - 20 mg Daily losartan-hydroCHLOROthiazide (Hyzaar) 100-12.5 MG tablet - 1 tablet Daily Test Results Pending At Discharge Pending Labs Order Current Status Basic Metabolic Panel Collected (09/11/24335) Lipid Panel w/calculated LDL Collected (09/11/24335) Magnesium Level Collected (09/11/24335) Troponin I High Sensitivity (Single Order) Collected (09/11/24335) Issues Requiring Follow-Up Outpatient Follow-Up Cardiac Rehabilitation Phase II Referral 09/10/2024 (Approximate) [facility] (Cardiac Rehab)[phone] [id number] [facility] [phone] Time Spent: I have spent total 35 minutes minutes completing this discharge. ON PICTURE OPERATOR [id number]40[facility]20* Wyatt Mccarthy MD - 09/21/2024 8:16 AM MOTION PICTURE OPERATOR Images from the original note were not included. CARDIOLOGY PROGRESS NOTE: SUBJECTIVE: No major overnight cardiovascular events. No reports of chest pain, worsening dyspnea, palpitations, lightheadedness, or dizziness. Ambulated without much in terms of symptoms. OBJECTIVE: Vitals: 09/21/24 0333 09/21/24 0733 09/21/24 0733 09/21/24732 BP: 109/66 102/62 Pulse: 76 78 Resp: 12 Temp: 36.8 ?C (98.3 ?F) 36.6 ?C (97.8 ?F) SpO2: 96% 98% Physical Exam: GEN: NAD, cooperative with exam CVS: S1 &S2, RRR, no murmurs, rubs, or gallops RESP: normal effort, clear to auscultation bilaterally ABD: soft, nontender, nondistended, BS+ Medications: Current Facility-Administered Medications: acetaminophen (Tylenol) tablet 650 mg, 650 mg, Oral, q6h PRN, Tonja Epps NP, 650 mg at 09/17/24 132 ALPRAZolam (Xanax) tablet 0.25 mg, 0.25 mg, Oral, BID PRN, Abisai Camacho MD, 0.25 mg at 09/19/242051 aspirin EC EC tablet 81 mg, 81 mg, Oral, Daily, 81 mg at 09/20/24 0834 OR aspirin suppository 300 mg, 300 mg, Rectal, Daily, Wyatt Mccarthy MD atorvastatin (Lipitor) tablet 80 mg, 80 mg, Oral, Nightly, Dang Soliman MD, 80 mg at 09/20/242030 busPIRone (Buspar) tablet 5 mg, 5 mg, Oral, TID, Rhiannon Whitlock DO, 5 mg at 09/20/242307 calcium gluconate 3 g in sodium chloride 0.9 % 150 mL IVPB, 3 g, Intravenous, PRN, Heidy Quiñones MD calcium gluconate in NaCl 100mL IVPB 2 g, 2 g, Intravenous, PRN, Heidy Quiñones MD dextrose 10 % infusion 125 mL, 125 mL, Intravenous, PRN, Heidy Quiñones MD dextrose 10 % infusion 250 mL, 250 mL, Intravenous, PRN, Heidy Quiñones MD diphenhydrAMINE (BENADryl) liquid 12.5 mg, 12.5 mg, Oral, q6h PRN, Heidy Quiñones MD docusate sodium (Colace) capsule 100 mg, 100 mg, Oral, BID, Heidy Quiñones MD, 100 mg at 09/20/24 1615 famotidine (Pepcid) tablet 20 mg, 20 mg, Oral, BID, Kait Haq NP, 20 mg at 09/20/24 1615 fluticasone (Flonase) nasal spray 2 spray, 2 spray, Each Nostril, Daily, Ayana Hargrove MD, 2 spray at 09/20/24 0833 glucagon injection 1 mg, 1 mg, Intramuscular, PRN, Heidy Quiñones MD heparin 1000 units/mL injection 4,000 Units, 4,000 Units, Intravenous, Once, Wyatt Mccarthy MD HYDROcodone-acetaminophen ([place]) 5-325 MG per tablet 1 tablet, 1 tablet, Oral, q6h PRN, Rhiannon Whitlock DO, 1 tablet at 09/19/24 1355 insulin regular (Myxredlin) 100-0.9 UT/100ML-% infusion (premix), 0.01 Units/hr, Intravenous, Continuous, Reji Pack MD lisinopril tablet 2.5 mg, 2.5 mg, Oral, Daily, Wyatt Mccarthy MD magnesium oxide (Mag-Ox) tablet 800 mg, 800 mg, Oral, PRN, Heidy Quiñones MD, 800 mg at 09/20/24 0834 magnesium sulfate in D5W IVPB 1 g, 1 g, Intravenous, PRN, Heidy Quiñones MD magnesium sulfate IVPB 2 g, 2 g, Intravenous, PRN, Heidy Quiñones MD magnesium sulfate IVPB 4 g, 4 g, Intravenous, PRN, Heidy Quiñones MD melatonin tablet 6 mg, 6 mg, Oral, Nightly PRN, Rhiannon Whitlock, DO, 6 mg at 09/17/242049 metoprolol tartrate (Lopressor) tablet 12.5 mg, 12.5 mg, Oral, q12h CHAPIN, Anne Paul, AUDIOVISUAL PRODUCTION SPECIALIST, 12.5 mg at 09/20/242030 naloxone (Narcan) injection 0.04 mg, 0.04 mg, Intravenous, PRN, Heidy Quiñones MD nitroglycerin (Nitrostat) SL tablet 0.4 mg, 0.4 mg, Sublingual, q5 min PRN, Wyatt Mccarthy MD ondansetron (Zofran) injection 4 mg, 4 mg, Intravenous, q8h PRN, Heidy Quiñones MD potassium & sodium phosphates (Phos-NaK) 280-160-250 MG packet 2 packet, 2 packet, Oral, PRN, Heidy Quiñones MD potassium chloride CR (Klor-Con M20) ER tablet 20 mEq, 20 mEq, Oral, PRN, Heidy Quiñones MD potassium chloride CR (Klor-Con M20) ER tablet 40 mEq, 40 mEq, Oral, PRN, Heidy Quiñones MD, 40 mEq at 09/12/24 1732 potassium chloride IVPB 10 mEq, 10 mEq, Intravenous, PRN, Heidy Quiñones MD Potassium chloride solution 20 mEq, 20 mEq, Nasogastric, PRN, Heidy Quiñones MD potassium phosphates 15 mmol in sodium chloride 0.9 % 100 mL infusion, 15 mmol, Intravenous, PRN, Heidy Quiñones MD Potassium Phosphates 30 mmol in sodium chloride 0.9 % 250 mL infusion, 30 mmol, Intravenous, PRN, Heidy Quiñones MD prasugrel (Effient) tablet 10 mg, 10 mg, Oral, Daily, Wyatt Mccarthy MD, 10 mg at 09/20/24 0834 sennosides (Senokot) tablet 17.2 mg, 2 tablet, Oral, Nightly PRN, Heidy Quiñones MD sodium chloride (NS) 0.9 % flush 10 mL, 10 mL, Intravenous, q12h CHAPIN, Wyatt Mccarthy MD, 10 mL at 09/20/242032 sodium chloride 0.9 % infusion 250 mL, 250 mL, Intravenous, PRN, Wyatt Mccarthy MD sodium phosphates 15 mmol in dextrose 5 % 100 mL IVPB, 15 mmol, Intravenous, PRN, Heidy Quiñones MD sodium phosphates 30 mmol in dextrose 5 % 100 mL IVPB, 30 mmol, Intravenous, PRN, Heidy Quiñones MD Data All pertinent labs, images, and/or procedures were reviewed if needed and available in the electronic health record. ASSESSMENT: Ricardo Hanson is a 59-year-old male admitted on 09/10/2024 after presenting with an NSTEMI. His pertinent problem list includes: Non-ST elevation myocardial infarction Severe, multivessel coronary artery disease Heart failure with reduced ejection fraction (NYHA class III, stage C, LVEF 20-25%, LVEDD 6 cm) from ischemic cardiomyopathy Paroxysmal atrial fibrillation with intermittent rapid ventricular response Hypertension Dyslipidemia RECOMMENDATIONS/PLAN: - Coronary angiography on 09/10/2024 at [facility] and [facility] demonstrated a subtotal occlusion of the proximal LAD with left-left collateral and right-left collateral filling, severe stenosis in the proximal circumflex involving an obtuse marginal branch, a SUPERVISOR AGRICULTURAL EDUCATION of the mid RCA with bridging collaterals - Referred for cardiothoracic surgery evaluation and potential bypass but ultimately turned down because of lack of suitable bypass conduits - Status post PCI (09/17/2024) of the proximal-distal RCA using overlapping Keller Synergy 3.0 x 16 mm, 2.75 x 30 mm and 2.25 x 16 mm FIORELLA - Staged PCI on 09/19/2024. Intravascular lithotripsy of the LAD using a Shockwave 3.0 x 12 mm balloon. PCI of the proximal-mid LAD using overlapping Medtronic [place] 3.0 x 18 mm and 2.75 x 26 mm FIORELLA. PCI of the distal left main complex with a T and protrusion technique. Medtronic [place] 3.5 x 18 mm FIORELLA extending into the LAD and [employer]tr[employer] [place] 2.75 x 26 mm FIORELLA extending into the circumflex. Impella removed - Continue dual antiplatelet therapy and high intensity statin. Changing for clopidogrel to Effient. Subsequent PCI imaging with concern for re-occlusion of RCA (collaterals). This could be related to the poor outflow from the prior intervention but may also represent Plavix intolerance - Continue metoprolol for now. Started on lisinopril 2.5 mg daily. Need to be cautious about GDMT given borderline blood pressures. - The patient continues to maintain sinus rhythm. He would prefer to defer additional anticoagulation to the outpatient setting as a pertains to his atrial fibrillation - Discussed LifeVest with the patient today. He would also like to defer this until an updated echocardiogram and 3 months to reassess his LV function. He understands the risk of potential arrhythmia. - Okay for discharge from a cardiac standpoint. Will try to make arrange for outpatient follow-up Thank you for allowing us to participate in the care of this patient. Please call with any questions/concerns. Please be advised that this note was created with the assistance of a dictation software. Please interpret appropriately in the context of possible sight effects specialist errors. Wyatt Mccarthy MD Interventional Cardiology ON PICTURE OPERATOR * Abisai Camacho MD - 09/20/2024 2:03 PM MOTION PICTURE OPERATOR Images from the original note were not included. [facility] ([facility] Medicine Program Progress Note Patient:Ricardo Page CODE Status: Full CodeBirth Date:1965 Admission Date:09/10/2024 Attending:Abisai Camacho MD LOS: 10days Reason for visit:Coronary artery disease involving elim ira coronary artery of elim ira heart with unstable angina pectoris (HCC) Subjective Sitting in chair. Impella removed.No chest pain, shortness of breath, nausea, diaphoresis or other complaints. ROS14 point ROS negative except as mentioned above. Physical Exam: PHYSICAL EXAMINATION: Visit VitalsBP (!) 113/28 Pulse 85 Temp 36.4 ?C (97.5 ?F) Resp 15 Ht 1.854 m (6' 0.99") Wt 92.5 kg (203 lb 14.8 oz) SpO2 98% BMI 26.91 kg/m? Smoking Status Never BSA 2.18 m? Physical Exam: Constitutional: Appearance: Normal appearance. HENT: Head: Normocephalic and atraumatic. Nose: Nose normal. Mouth/Throat: Mouth: Mucous membranes are moist. Eyes: Extraocular Movements: Extraocular movements intact. Pupils: Pupils are equal, round, and reactive to light. Cardiovascular: Rate and Rhythm: Normal rate and regular rhythm. Heart sounds: Normal heart sounds. Pulmonary: Effort: Pulmonary effort is normal. Breath sounds: Normal breath sounds. Abdominal: General: Abdomen is flat. Palpations: Abdomen is soft. Musculoskeletal: General: Normal range of motion. Cervical back: Normal range of motion and neck supple. Skin: General: Skin is warm and dry. Capillary Refill: Capillary refill takes more than 3 seconds. Neurological: General: No focal deficit present. Mental Status: He is alert and oriented to person, place, and time. Psychiatric: Mood and Affect: Mood normal. Behavior: Behavior normal. Current Medications:aspirin EC, 81 mg, Oral, Daily Or aspirin, 300 mg, Rectal, Daily atorvastatin, 80 mg, Oral, Nightly busPIRone, 5 mg, Oral, TID docusate sodium, 100 mg, Oral, BID famotidine, 20 mg, Oral, BID fluticasone, 2 spray, Each Nostril, Daily heparin, 4,000 Units, Intravenous, Once metoprolol tartrate, 12.5 mg, Oral, q12h CHAPIN prasugrel, 10 mg, Oral, Daily sodium chloride, 10 mL, Intravenous, q12h CHAIPN insulin regular, 0.01 Units/hr PRN medications: acetaminophen, ALPRAZolam, calcium gluconate, calciumgluconate, dextrose, dextrose, diphenhydrAMINE, glucagon, HYDROcodone-acetaminophen, magnesium oxide, magnesium sulfate, magnesium sulfate, magnesium sulfate, melatonin, naloxone, nitroglycerin, ondansetron, potassium & sodium phosphates, potassium chloride, potassium chloride, potassium chloride, Potassium chloride, potassium phosphate, potassium phosphate, sennosides, sodium chloride, sodium phosphate, sodium phosphate Current Diet:Adult Diet Heart Healthy Input/Output: Intake/Output Summary (Last 24 hours) at 09/20/2024 1403Last data filed at 09/20/2024 1030 Gross per 24 hour Intake 240 ml Output 1700 ml Net -1460 ml Labs & Imaging: Labs: Results from last 7 days Lab Units 09/20/24 0517 WBC 10*3/uL 7.15 HEMOGLOBIN g/dL 13.6 HEMATOCRIT % 37.7 PLATELETS 10*3/uL 173 LYMPHOCYTES % 17.8 MONOCYTES % 10.5 Results from last 7 daysLab Units 09/20/24 0517 09/19/24 0244 09/18/24 0420 SODIUM mEq/L 136 < > 134* POTASSIUM mEq/L 4.1 < > 4.2 CHLORIDE mEq/L 102 < > 104 CO2 mEq/L 26.7 < > 26.4 BUN mg/dL 13 < > 12 CREATININE mg/dL 0.89 < > 0.87 CALCIUM mg/dL 9.2 < > 9.3 PROTEIN TOTAL g/dL -- -- 6.4 BILIRUBIN TOTAL mg/dL -- -- 1.61* ALK PHOS U/L -- -- 62 ALT U/L -- -- 71* AST U/L -- -- 94* GLUCOSE mg/dL 97 < > 123* < > = values in this interval not displayed. CULTURE :No results found for the last 90 days. IMAGING :=== 09/10/24 === XR CHEST 1 VIEW - Impression -No acute radiographic abnormality. ELECTRONICALLY SIGNED BY PATIENCE BROWN MD ON 09/11/2024 AT 16:08. === 09/10/24 === CT CHEST WO IV CONTRAST - Impression -Severe coronary artery calcifications. ELECTRONICALLY SIGNED BY TIEN PAREDES MD ON 09/15/2024 AT 15:01. === 09/10/24 === US CAROTID ARTERY DOPPLER BILATERAL - Impression -No carotid arterial stenosis. REFERENCES:The degree of internal carotid artery stenosis is based on criteria defined by the IAC Vascular Testing criteria. Normal is no stenosis. Mild is less than 50% stenosis. Moderate is 50-69% stenosis. Severe is greater than 69% stenosis to near occlusion. Near occlusion is a markedly narrowed lumen. Total occlusion is no detectable patent lumen. ELECTRONICALLY SIGNED BY MANDY REEVES MD ON 09/11/2024 AT 17:29. Transthoracic echo (TTE) complete 09/10/2024 Interpretation SummaryLeft Ventricle: Left ventricle is dilated, LVEDD 6.25cm. Left ventricular regional wall motion abnormalities present. There is global hypokinesis with apical akinesis. Reduced systolic function with an estimated EF of 20 - 25%. Grade II diastolic dysfunction of the left ventricle. Mitral Valve: Trace mitral regurgitation present. Tricuspid Valve: Trace tricuspid regurgitation present. Inadequate TR to estimate the PASP. Assessment & Plan: Mr. Ricardo Hanson is a 59-year-old male with past medical history significant for hypertension, hypothyroid and hyperlipidemia presented to the emergency room with complaint of longstanding history of intermittent chest pain. Patient underwent cardiac catheterization where he was found to have multivessel CAD. Patient was transferred to our facility for cardiothoracic surgery evaluation. Patient underwent LHC and Impella protected PCI of the proximal-distal RCA on 09/17/24. CABG has been postponed. Assessment & PlanCoronary artery disease involving elim ira coronary artery of elim ira heart with unstable angina pectoris (HCC) S/p Impella protected PCI of the proximal-distal RCA on 09/17/24 Had LHC and PCI again on 09/19/24 Continue ASA, statin CT Surgery primary NSTEMI (non-ST elevated myocardial infarction) ([facility]/HCC) ([facility]) S/p Impella protected PCI of the proximal-distal RCA HTN (hypertension) Blood pressures are stable Defer antihypertensives to Cardiology team Consider PRN medications if systolics only if >180 Paroxysmal atrial fibrillation ([facility]) ([facility]) Patient is currently rate controlled and NSR will need anticoagulation on discharge Acute systolic congestive heart failure ([facility]) ([facility]) Continue strict I's and O's, 1 L fluid restriction, daily weights Continue aspirin, statin GDMT as BP tolerates Cardiology on board HLD (hyperlipidemia) Continue statin Cardiogenic shock ([facility]) Resolved Thrombocytopenia ([facility]) Monitor counts CHF (congestive heart failure) ([facility]/HCC) ([facility]) GDMT as BP tolerates Cardiology on board DVT prophylaxis: SCDs Disposition Plan: transfer to telemetry, hopefully discharge tomorrow ifremains stable Abisai Camacho MDHospital Medicine [facility] ON PICTURE OPERATOR * Wyatt Mccarthy MD - 09/20/2024 7:55 AM MOTION PICTURE OPERATOR Images from the original note were not included. CARDIOLOGY PROGRESS NOTE: SUBJECTIVE: No major overnight cardiovascular events. No reports of chest pain, worsening dyspnea, palpitations, lightheadedness, or dizziness. Mild discomfort at cath sites. OBJECTIVE: Vitals: 09/20/24 0700 09/20/24 0715 09/20/24 0730 09/20/24 0745 BP: (!) 110/49 99/63 96/69 105/62 Pulse: 82 76 81 78 Resp: 21 18 18 15 Temp: SpO2: 96% 97% 95% 96% Physical Exam: GEN: NAD, cooperative with exam CVS: S1 &S2, RRR, no murmurs, rubs, or gallops RESP: normal effort, clear to auscultation bilaterally ABD: soft, nontender, nondistended, BS+ Medications: Current Facility-Administered Medications: acetaminophen (Tylenol) tablet 650 mg, 650 mg, Oral, q6h PRN, Tonja Epps NP, 650 mg at 09/17/24 1323 ALPRAZolam (Xanax) tablet 0.25 mg, 0.25 mg, Oral, BID PRN, Abisai Camacho MD, 0.25 mg at 09/19/242051 aspirin EC EC tablet 81 mg, 81 mg, Oral, Daily, 81 mg at 09/19/24 0847 OR aspirin suppository 300 mg, 300 mg, Rectal, Daily, Wyatt Mccarthy MD atorvastatin (Lipitor) tablet 80 mg, 80 mg, Oral, Nightly, Dang Soliman MD, 80 mg at 09/19/242049 busPIRone (Buspar) tablet 5 mg, 5 mg, Oral, TID, Rhiannon Whitlock DO, 5 mg at 09/20/24 0004 calcium gluconate 3 g in sodium chloride 0.9 % 150 mL IVPB, 3 g, Intravenous, PRN, Heidy Quiñones MD calcium gluconate in NaCl 100mL IVPB 2 g, 2 g, Intravenous, PRN, Heidy Quiñones MD dextrose 10 % infusion 125 mL, 125 mL, Intravenous, PRN, Heidy Quiñones MD dextrose 10 % infusion 250 mL, 250 mL, Intravenous, PRN, Heidy Quiñones MD diphenhydrAMINE (BENADryl) liquid 12.5 mg, 12.5 mg, Oral, q6h PRN, Heidy Quiñones MD docusate sodium (Colace) capsule 100 mg, 100 mg, Oral, BID, Heidy Quiñones MD, 100 mg at 09/19/24 0848 fluticasone (Flonase) nasal spray 2 spray, 2 spray, Each Nostril, Daily, Ayana Hargrove MD, 2 spray at 09/19/24 0937 glucagon injection 1 mg, 1 mg, Intramuscular, PRN, Heidy Quiñones MD heparin 1000 units/mL injection 4,000 Units, 4,000 Units, Intravenous, Once, Wyatt Mccarthy MD HYDROcodone-acetaminophen ([place]) 5-325 MG per tablet 1 tablet, 1 tablet, Oral, q6h PRN, Rhiannon Whitlock DO, 1 tablet at 09/19/24 1355 insulin regular (Myxredlin) 100-0.9 UT/100ML-% infusion (premix), 0.01 Units/hr, Intravenous, Continuous, Reji Pack MD magnesium oxide (Mag-Ox) tablet 800 mg, 800 mg, Oral, PRN, Heidy Quiñones MD, 800 mg at 09/19/24 0754 magnesium sulfate in D5W IVPB 1 g, 1 g, Intravenous, PRN, Heidy Quiñones MD magnesium sulfate IVPB 2 g, 2 g, Intravenous, PRN, Heidy Quiñones MD magnesium sulfate IVPB 4 g, 4 g, Intravenous, PRN, Heidy Quiñones MD melatonin tablet 6 mg, 6 mg, Oral, Nightly PRN, Rhiannon Whitlock DO, 6 mg at 09/17/242049 metoprolol tartrate (Lopressor) tablet 12.5 mg, 12.5 mg, Oral, q12h CHAPIN, Anne Paul NP, 12.5 mg at 09/19/242050 naloxone (Narcan) injection 0.04 mg, 0.04 mg, Intravenous, PRN, Heidy Quiñones MD nitroglycerin (Nitrostat) SL tablet 0.4 mg, 0.4 mg, Sublingual, q5 min PRN, Wyatt Mccarthy MD ondansetron (Zofran) injection 4 mg, 4 mg, Intravenous, q8h PRN, Heidy Quiñones MD potassium & sodium phosphates (Phos-NaK) 280-160-250 MG packet 2 packet, 2 packet, Oral, PRN, Heidy Quiñones MD potassium chloride CR (Klor-Con M20) ER tablet 20 mEq, 20 mEq, Oral, PRN, Heidy Quiñones MD potassium chloride CR (Klor-Con M20) ER tablet 40 mEq, 40 mEq, Oral, PRN, Heidy Quiñones MD, 40 mEq at 09/12/241731 potassium chloride IVPB 10 mEq, 10 mEq, Intravenous, PRN, Heidy Quiñones MD Potassium chloride solution 20 mEq, 20 mEq, Nasogastric, PRN, Heidy Quiñones MD potassium phosphates 15 mmol in sodium chloride 0.9 % 100 mL infusion, 15 mmol, Intravenous, PRN, Heidy Quiñones MD Potassium Phosphates 30 mmol in sodium chloride 0.9 % 250 mL infusion, 30 mmol, Intravenous, PRN, Heidy Quiñones MD prasugrel (Effient) tablet 10 mg, 10 mg, Oral, Daily, Wyatt Mccarthy MD, 60 mg at 09/19/241937 sennosides (Senokot) tablet 17.2 mg, 2 tablet, Oral, Nightly PRN, Heidy Quiñones MD sodium chloride (NS) 0.9 % flush 10 mL, 10 mL, Intravenous, q12h CHAPIN, Wyatt Mccarthy MD, 10 mL at 09/19/242105 sodium chloride 0.9 % infusion 250 mL, 250 mL, Intravenous, PRN, Wyatt Mccarthy MD sodium phosphates 15 mmol in dextrose 5 % 100 mL IVPB, 15 mmol, Intravenous, PRN, Heidy Quiñones MD sodium phosphates 30 mmol in dextrose 5 % 100 mL IVPB, 30 mmol, Intravenous, PRN, Heidy Quiñones MD Data All pertinent labs, images, and/or procedures were reviewed if needed and available in the electronic health record. ASSESSMENT: Ricardo Hanson is a 59-year-old male admitted on 09/10/2024 after presenting with an NSTEMI. His pertinent problem list includes: Non-ST elevation myocardial infarction Severe, multivessel coronary artery disease Heart failure with reduced ejection fraction (NYHA class III, stage C, LVEF 20-25%, LVEDD 6 cm) from ischemic cardiomyopathy Paroxysmal atrial fibrillation with intermittent rapid ventricular response Hypertension Dyslipidemia RECOMMENDATIONS/PLAN: - Coronary angiography on 09/10/2024 at [facility] and formerly [facility] demonstrated a subtotal occlusion of the proximal LAD with left-left collateral and right-left collateral filling, severe stenosis in the proximal circumflex involving an obtuse marginal branch, a [employer] of the mid RCA with bridging collaterals - Referred for cardiothoracic surgery evaluation and potential bypass but ultimately turned down because of lack of suitable bypass conduits - Status post PCI (09/17/2024) of the proximal-distal RCA using overlapping Keller Synergy 3.0 x 16 mm, 2.75 x 30 mm and 2.25 x 16 mm FIORELLA - Staged PCI on 09/19/2024. Intravascular lithotripsy of the LAD using a Shockwave 3.0 x 12 mm balloon. PCI of the proximal-mid LAD using overlapping Medtronic [place] 3.0 x 18 mm and 2.75 x 26 mm FIORELLA. PCI of the distal left main complex with a T and protrusion technique. Medtronic Sam Licking 3.5 x 18 mm FIORELLA extending into the LAD and Medtronic [place] Licking 2.75 x 26 mm FIORELLA extending into the circumflex - Impella removed - Continue dual antiplatelet therapy and high intensity statin. Changing for clopidogrel to Effient. Subsequent PCI imaging with concern for re-occlusion of RCA (collaterals). This could be related to the poor outflow from the prior intervention but may also represent Plavix intolerance - Continue metoprolol for now. Will eventually escalate guideline directed medical therapy as blood pressure tolerates. Had to intermittently hold medications because of borderline blood pressures. Blood pressure trends are more normal. Will assess and add as feasible - The patient remains in sinus rhythm. Need to consider further anticoagulation after revascularization complete - Will continue to follow. Okay for downgrade out of the ICU today 30 minutes of critical care time was spent on this patient's care. I reviewed lab work, reviewed patient's medications and made appropriate changes, and communicated/coordinated care with other healthcare providers during this time. Thank you for allowing us to participate in the care of this patient. Please call with any questions/concerns. Please be advised that this note was created with the assistance of a dictation software. Please interpret appropriately in the context of possible sight effects specialist errors. Wyatt Mccarthy MD Interventional Cardiology ON PICTURE OPERATOR * Wyatt Mccarthy MD - 09/19/2024 8:05 PM MOTION PICTURE OPERATOR Images from the original note were not included. CARDIOLOGY PROGRESS NOTE: SUBJECTIVE: No major overnight cardiovascular events. No reports of chest pain, worsening dyspnea, palpitations, lightheadedness, or dizziness. OBJECTIVE: Vitals: 09/19/24 1545 09/19/24 1600 09/19/24 1615 09/19/24 1630 BP: 121/79 Pulse: 71 68 74 76 Resp: 13 14 16 19 Temp: SpO2: 97% 100% 98% 96% Physical Exam: GEN: NAD, cooperative with exam CVS: S1 &S2, RRR, no murmurs, rubs, or gallops RESP: normal effort, clear to auscultation bilaterally ABD: soft, nontender, nondistended, BS+ Medications: Current Facility-Administered Medications:[Transfer Hold] acetaminophen (Tylenol) tablet 650 mg, 650 mg, Oral, q6h PRN, Tonja Epps NP, 650 mg at 09/17/24 1323 [Transfer Hold] ALPRAZolam (Xanax) tablet 0.25 mg, 0.25 mg, Oral, BID PRN, Abisai Camacho MD, 0.25 mg at 09/19/24 0731 [Transfer Hold] aspirin EC EC tablet 81 mg, 81 mg, Oral, Daily, 81 mg at 09/19/24 0847 OR [Transfer Hold] aspirin suppository 300 mg, 300 mg, Rectal, Daily, Wyatt Mccarthy MD [Transfer Hold] atorvastatin (Lipitor) tablet 80 mg, 80 mg, Oral, Nightly, Dang Soliman MD, 80 mg at 09/18/242038 [Transfer Hold] busPIRone (Buspar) tablet 5 mg, 5 mg, Oral, TID, Rhiannon Whitlock DO, 5 mg at 09/19/24 1527 [Transfer Hold] calcium gluconate 3 g in sodium chloride 0.9 % 150 mL IVPB, 3 g, Intravenous, PRN, Heidy Quiñones MD [Transfer Hold] calcium gluconate in NaCl 100mL IVPB 2 g, 2 g, Intravenous, PRN, Heidy Quiñones MD [Transfer Hold] dextrose 10 % infusion 125 mL, 125 mL, Intravenous, PRN, Heidy Quiñones MD [Transfer Hold] dextrose 10 % infusion 250 mL, 250 mL, Intravenous, PRN, Heidy Quiñones MD [Transfer Hold] diphenhydrAMINE (BENADryl) liquid 12.5 mg, 12.5 mg, Oral, q6h PRN, Heidy Quiñones MD [Transfer Hold] docusate sodium (Colace) capsule 100 mg, 100 mg, Oral, BID, Heidy Quiñones MD, 100 mg at 09/19/24 0848 fentaNYL (Sublimaze) injection, , Intravenous, PRN, Wyatt Mccarthy MD, 25 mcg at 09/19/24 1905 [Transfer Hold] fluticasone (Flonase) nasal spray 2 spray, 2 spray, Each Nostril, Daily, Ayana Hargrove MD, 2 spray at 09/19/24 0937 [Transfer Hold] glucagon injection 1 mg, 1 mg, Intramuscular, PRN, Heidy Quiñones MD heparin 1000 units/mL injection 4,000 Units, 4,000 Units, Intravenous, Once, Wyatt Mccarthy MD heparin 1000 units/mL injection, , , PRN, Wyatt Mccarthy MD, 3,000 Units at 09/19/24 1839 [Transfer Hold] HYDROcodone-acetaminophen ([place]) 5-325 MG per tablet 1 tablet, 1 tablet, Oral, q6h PRN, Rhiannon Whitlock DO, 1 tablet at 09/19/24 1355 insulin regular (Myxredlin) 100-0.9 UT/100ML-% infusion (premix), 0.01 Units/hr, Intravenous, Continuous, Reji Pack MD iodixanol (VISIPaque) 320 MG/ML injection, , , PRN, Wyatt Mccarthy MD, 145 mL at 09/19/24 1926 lidocaine (Xylocaine) 1 % injection, , , PRN, Wyatt Mccarthy MD, 20 mL at 09/19/24 1705 [Transfer Hold] magnesium oxide (Mag-Ox) tablet 800 mg, 800 mg, Oral, PRN, Heidy Quiñones MD, 800 mg at 09/19/24 0754 [Transfer Hold] magnesium sulfate in D5W IVPB 1 g, 1 g, Intravenous, PRN, Heidy Quiñones MD [Transfer Hold] magnesium sulfate IVPB 2 g, 2 g, Intravenous, PRN, Heidy Quiñones MD [Transfer Hold] magnesium sulfate IVPB 4 g, 4 g, Intravenous, PRN, Heidy Quiñones MD [Transfer Hold] melatonin tablet 6 mg, 6 mg, Oral, Nightly PRN, Rhiannon Whitlock, DO, 6 mg at 09/17/24 2050 [Transfer Hold] metoprolol tartrate (Lopressor) tablet 12.5 mg, 12.5 mg, Oral, q12h CHAPIN, Anne Paul NP, 12.5 mg at 09/19/24 0848 midazolam (PF) (Versed) injection, , Intravenous, PRN, Wyatt Mccarthy MD, 1 mg at 09/19/24 1843 [Transfer Hold] naloxone (Narcan) injection 0.04 mg, 0.04 mg, Intravenous, PRN, Heidy Quiñones MD [Transfer Hold] nitroglycerin (Nitrostat) SL tablet 0.4 mg, 0.4 mg, Sublingual, q5 min PRN, Wyatt Mccarthy MD [Transfer Hold] ondansetron (Zofran) injection 4 mg, 4 mg, Intravenous, q8h PRN, Heidy Quiñones MD [Transfer Hold] potassium & sodium phosphates (Phos-NaK) 280-160-250 MG packet 2 packet, 2 packet, Oral, PRN, Heidy Quiñones MD [Transfer Hold] potassium chloride CR (Klor-Con M20) ER tablet 20 mEq, 20 mEq, Oral, PRN, Heidy Quiñones MD [Transfer Hold] potassium chloride CR (Klor-Con M20) ER tablet 40 mEq, 40 mEq, Oral, PRN, Heidy Quiñones MD, 40 mEq at 09/12/24 1732 [Transfer Hold] potassium chloride IVPB 10 mEq, 10 mEq, Intravenous, PRN, Heidy Quiñones MD [Transfer Hold] Potassium chloride solution 20 mEq, 20 mEq, Nasogastric, PRN, Heidy Quiñones MD [Transfer Hold] potassium phosphates 15 mmol in sodium chloride 0.9 % 100 mL infusion, 15 mmol, Intravenous, PRN, Heidy Quiñones MD [Transfer Hold] Potassium Phosphates 30 mmol in sodium chloride 0.9 % 250 mL infusion, 30 mmol, Intravenous, PRN, Heidy Quiñones MD [START ON 09/20/2024] prasugrel (Effient) tablet 10 mg, 10 mg, Oral, Daily, Wyatt Mccarthy MD, 60 mg at 09/19/24 1938 [Transfer Hold] sennosides (Senokot) tablet 17.2 mg, 2 tablet, Oral, Nightly PRN, Heidy Quiñones MD [Transfer Hold] sodium chloride (NS) 0.9 % flush 10 mL, 10 mL, Intravenous, q12h CHAPIN, Wyatt Mccarthy MD, 10 mL at 09/19/24 0937 [Transfer Hold] sodium chloride 0.9 % infusion 250 mL, 250 mL, Intravenous, PRN, Wyatt Mccarthy MD [Transfer Hold] sodium phosphates 15 mmol in dextrose 5 % 100 mL IVPB, 15 mmol, Intravenous, PRN, Heidy Quiñones MD [Transfer Hold] sodium phosphates 30 mmol in dextrose 5 % 100 mL IVPB, 30 mmol, Intravenous, PRN, Heidy Quiñones MD DataAll pertinent labs, images, and/or procedures were reviewed if needed and available in the electronic health record. ASSESSMENT:Ricardo Hanson is a 59-year-old male admitted on 09/10/2024 after presenting with an NSTEMI. His pertinent problem list includes: Non-ST elevation myocardial infarctionSevere, multivessel coronary artery disease Heart failure with reduced ejection fraction (NYHA class III, stage C, LVEF 20-25%, LVEDD 6 cm) from ischemic cardiomyopathy Paroxysmal atrial fibrillation with intermittent rapid ventricular response Hypertension Dyslipidemia RECOMMENDATIONS/PLAN:- Coronary angiography on 09/10/2024 at [facility] and [facility] demonstrated a subtotal occlusion of the proximal LAD with left-left collateral and right-left collateral filling, severe stenosis in the proximal circumflex involving an obtuse marginal branch, a [employer] of the mid RCA with bridging collaterals - Referred for cardiothoracic surgery evaluation and potential bypass but ultimately turned down because of lack of suitable bypass conduits - Status post PCI (09/17/2024) of the proximal-distal RCA using overlapping Keller Synergy 3.0 x 16 mm, 2.75 x 30 mm and 2.25 x 16 mm FIORELLA - Staged PCI on 09/19/2024. Intravascular lithotripsy of the LAD using a Shockwave 3.0 x 12 mm balloon. PCI of the proximal-mid LAD using overlapping Medtronic [place] Licking 3.0 x 18 mm and 2.75 x 26 mm FIORELLA. PCI of the distal left main complex with a T and protrusion technique. Medtronic [place] Licking 3.5 x 18 mm FIORELLA extending into the LAD and Medtronic Sam Licking 2.75 x 26 mm FIORELLA extending into the circumflex - Impella removed - Continue dual antiplatelet therapy and high intensity statin. Changing for clopidogrel to Effient. Subsequent PCI imaging with concern for re-occlusion of RCA (collaterals). This could be related to the poor outflow from the prior intervention but may also represent Plavix intolerance - Continue metoprolol for now. Will eventually escalate guideline directed medical therapy as blood pressure tolerates. Had to intermittently hold medications because of borderline blood pressures. Blood pressure trends are more normal. Will assess and add as feasible - The patient remains in sinus rhythm. Need to consider further anticoagulation after revascularization complete - Will continue to follow 30 minutes of critical care time was spent on this patient's care. I reviewedlab work, reviewed patient's medications and made appropriate changes, and communicated/coordinated care with other healthcare providers during this time. Thank you for allowing us to participate in the care of this patient. Pleasecall with any questions/concerns. Please be advised that this note was created with the assistance of a dictation software. Please interpret appropriately in the context of possible sight effects specialist errors. Wyatt Mccarthy MDInterventional Cardiology ON PICTURE OPERATOR * Abisai Camacho MD - 09/19/2024 12:01 PM MOTION PICTURE OPERATOR Images from the original note were not included. [facility] ([facility] Medicine Program Progress Note Patient:Ricardo Page CODE Status: Full CodeBirth Date:1965 Admission Date:09/10/2024 Attending:Abisai Camacho MD LOS: 9days Reason for visit:Coronary artery disease involving elim ira coronary artery of elim ira heart with unstable angina pectoris (HCC) Subjective Resting in bed. Impella in place. Did not sleep well last night either. Nochest pain, shortness of breath, nausea, diaphoresis or other complaints. ROS14 point ROS negative except as mentioned above. Physical Exam: PHYSICAL EXAMINATION: Visit VitalsBP 125/87 Pulse 72 Temp 36.5 ?C (97.7 ?F) Resp 13 Ht 1.854 m (6' 0.99") Wt 92.5 kg (203 lb 14.8 oz) SpO2 96% BMI 26.91 kg/m? Smoking Status Never BSA 2.18 m? Physical Exam: Constitutional: Appearance: Normal appearance. HENT: Head: Normocephalic and atraumatic. Nose: Nose normal. Mouth/Throat: Mouth: Mucous membranes are moist. Eyes: Extraocular Movements: Extraocular movements intact. Pupils: Pupils are equal, round, and reactive to light. Cardiovascular: Rate and Rhythm: Normal rate and regular rhythm. Heart sounds: Normal heart sounds. Pulmonary: Effort: Pulmonary effort is normal. Breath sounds: Normal breath sounds. Abdominal: General: Abdomen is flat. Palpations: Abdomen is soft. Musculoskeletal: General: Normal range of motion. Cervical back: Normal range of motion and neck supple. Skin: General: Skin is warm and dry. Capillary Refill: Capillary refill takes more than 3 seconds. Neurological: General: No focal deficit present. Mental Status: He is alert and oriented to person, place, and time. Psychiatric: Mood and Affect: Mood normal. Behavior: Behavior normal. Current Medications:aspirin EC, 81 mg, Oral, Daily Or aspirin, 300 mg, Rectal, Daily atorvastatin, 80 mg, Oral, Nightly busPIRone, 5 mg, Oral, TID clopidogrel, 75 mg, Oral, Daily docusate sodium, 100 mg, Oral, BID fluticasone, 2 spray, Each Nostril, Daily heparin, 4,000 Units, Intravenous, Once metoprolol tartrate, 12.5 mg, Oral, q12h CHAPIN sodium chloride, 10 mL, Intravenous, q12h CHAPIN dexmedeTOMIDine, 0.2-1.5 mcg/kg/hrEPINEPHrine, 1-35 mcg/min heparin, 0.1-40 Units/kg/hr, Last Rate: 18.1 Units/kg/hr (09/19/24 1201) insulin regular, 0.01 Units/hr norepinephrine, 5-70 mcg/min phenylephrine, 35-350 mcg/min sodium bicarbonate 25 mEq in dextrose 5 % 1,000 mL infusion, 0.1-40 mL/hr, Last Rate: 12.4 mL/hr (09/19/24 1201) PRN medications: acetaminophen, ALPRAZolam, calcium gluconate, calciumgluconate, dextrose, dextrose, diphenhydrAMINE, glucagon, heparin, heparin, HYDROcodone-acetaminophen, magnesium oxide, magnesium sulfate, magnesium sulfate, magnesium sulfate, melatonin, naloxone, nitroglycerin, ondansetron, potassium & sodium phosphates, potassium chloride, potassium chloride, potassium chloride, Potassium chloride, potassium phosphate, potassium phosphate, sennosides, sodium chloride, sodium phosphate, sodium phosphate Current Diet:Adult Diet Liquid; Clear Liquid Input/Output: Intake/Output Summary (Last 24 hours) at 09/19/2024 1201Last data filed at 09/19/2024 1201 Gross per 24 hour Intake 2650 ml Output 3825 ml Net -1175 ml Labs & Imaging: Labs: Results from last 7 days Lab Units 09/19/24 0244 WBC 10*3/uL 7.86 HEMOGLOBIN g/dL 14.4 HEMATOCRIT % 40.4 PLATELETS 10*3/uL 177 LYMPHOCYTES % 16.9 MONOCYTES % 8.7 Results from last 7 daysLab Units 09/19/24 0244 09/18/24 0420 SODIUM mEq/L 139 134* POTASSIUM mEq/L 4.3 4.2 CHLORIDE mEq/L 105 104 CO2 mEq/L 27.4 26.4 BUN mg/dL 8* 12 CREATININE mg/dL 0.80 0.87 CALCIUM mg/dL 9.3 9.3 PROTEIN TOTAL g/dL -- 6.4 BILIRUBIN TOTAL mg/dL -- 1.61* ALK PHOS U/L -- 62 ALT U/L -- 71* AST U/L -- 94* GLUCOSE mg/dL 122* 123* CULTURE :No results found for the last 90 days. IMAGING :=== 09/10/24 === XR CHEST 1 VIEW - Impression -No acute radiographic abnormality. ELECTRONICALLY SIGNED BY PATIENCE BROWN MD ON 09/11/2024 AT 16:08. === 09/10/24 === CT CHEST WO IV CONTRAST - Impression -Severe coronary artery calcifications. ELECTRONICALLY SIGNED BY TIEN PAREDES MD ON 09/15/2024 AT 15:01. === 09/10/24 === US CAROTID ARTERY DOPPLER BILATERAL - Impression -No carotid arterial stenosis. REFERENCES:The degree of internal carotid artery stenosis is based on criteria defined by the [employer] Vascular Testing criteria. Normal is no stenosis. Mild is less than 50% stenosis. Moderate is 50-69% stenosis. Severe is greater than 69% stenosis to near occlusion. Near occlusion is a markedly narrowed lumen. Total occlusion is no detectable patent lumen. ELECTRONICALLY SIGNED BY MANDY REEVES MD ON 09/11/2024 AT 17:29. Transthoracic echo (TTE) complete 09/10/2024 Interpretation SummaryLeft Ventricle: Left ventricle is dilated, LVEDD 6.25cm. Left ventricular regional wall motion abnormalities present. There is global hypokinesis with apical akinesis. Reduced systolic function with an estimated EF of 20 - 25%. Grade II diastolic dysfunction of the left ventricle. Mitral Valve: Trace mitral regurgitation present. Tricuspid Valve: Trace tricuspid regurgitation present. Inadequate TR to estimate the PASP. Assessment & Plan: Mr. Ricardo Hanson is a 59-year-old male with past medical history significant for hypertension, hypothyroid and hyperlipidemia presented to the emergency room with complaint of longstanding history of intermittent chest pain. Patient underwent cardiac catheterization where he was found to have multivessel CAD. Patient was transferred to our facility for cardiothoracic surgery evaluation. Patient underwent LHC and Impella protected PCI of the proximal-distal RCA on 09/17/24. CABG has been postponed. Assessment & PlanCoronary artery disease involving elim ira coronary artery of elim ira heart with unstable angina pectoris (HCC) S/p Impella protected PCI of the proximal-distal RCA on 09/17/24 Plans for LHC and PCI again on 09/19/24 Continue ASA, heparin gtt, statin CT Surgery primary NSTEMI (non-ST elevated myocardial infarction) (CMS/HCC) ([facility]) S/p Impella protected PCI of the proximal-distal RCA HTN (hypertension) Blood pressures are stable Defer antihypertensives to Cardiology team Consider PRN medications if systolics only if >180 Paroxysmal atrial fibrillation ([facility]/HCC) ([facility]) Patient is currently rate controlled and NSR Patient currently on heparin gtt, will need anticoagulation on discharge Acute systolic congestive heart failure (CMS/HCC) ([facility]) Continue strict I's and O's, 1 L fluid restriction, daily weights Continue aspirin, statin GDMT as BP tolerates Cardiology on board HLD (hyperlipidemia) Continue statin Cardiogenic shock ([facility]) Resolved Thrombocytopenia ([facility]) Monitor counts DVT prophylaxis: heparin - 1000 units/mL, 1000 units/mL, 1000 units/mL, 50 units/mL Disposition Plan: pending clinical improvement and cardiology clearance Abisai Camacho MDspital Medicine [facility] ON PICTURE OPERATOR * Rhiannon Whitlock, - 09/18/2024 6:44 PM MOTION PICTURE OPERATOR [facility] Critical Care Progress Note History of Present Illness Ricardo Hanson is a 59 y.o. male who has a PMH of HTN and HLD. He presented to the ED with complaints of chest pain and was admitted for NSTEMI. 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 He received PCI to the RCA. He is on MCS in the form an Impella device at P4. The plan is to perform staged PCI in two days to the LAD and circumflex arteries. Overnight events Denies any chest pain Uncomfortable laying on his back Physical examination Vitals: 09/18/24 1830 BP: 107/74 Pulse: 76 Resp: 17 Temp: SpO2: 97% General: NAD ENT: protecting airway Heart: S1 S2 regular Lungs: CTAB Abdomen: soft/NT/ND + BS : wolfe Extremities: no edema no ischemia gangrene Skin: no rashes, no bruises Neurologic: alert & oriented non-lateralizing Lab results Results from last 7 days Lab Units 09/18/24 0421 09/17/24 1115 09/17/24 0051 WBC 10*3/uL 8.97 6.92 6.74 HEMOGLOBIN g/dL 14.2 14.8 14.5 HEMATOCRIT % 39.6 42.1 41.0 PLATELETS 10*3/uL 193 188 182 Results from last 7 days Lab Units 09/18/24 0420 SODIUM mEq/L 134* POTASSIUM mEq/L 4.2 CHLORIDE mEq/L 104 CO2 mEq/L 26.4 BUN mg/dL 12 CREATININE mg/dL 0.87 CALCIUM mg/dL 9.3 PROTEIN TOTAL g/dL 6.4 BILIRUBIN TOTAL mg/dL 1.61* ALK PHOS U/L 62 ALT U/L 71* AST U/L 94* GLUCOSE mg/dL 123* 24 hr I/Os summary Intake/Output Summary (Last 24 hours) at 09/18/2024 1844Last data filed at 09/18/2024 1844 Gross per 24 hour Intake 2399.49 ml Output 2645 ml Net -245.51 ml Ventilator settings / Supplemental oxygen No data recorded MedicationsScheduled Meds: aspirin EC, 81 mg, Oral, Daily Or aspirin, 300 mg, Rectal, Daily atorvastatin, 80 mg, Oral, Nightly busPIRone, 5 mg, Oral, TID clopidogrel, 75 mg, Oral, Daily docusate sodium, 100 mg, Oral, BID fluticasone, 2 spray, Each Nostril, Daily heparin, 4,000 Units, Intravenous, Once metoprolol tartrate, 12.5 mg, Oral, q12h CHAPIN sodium chloride, 10 mL, Intravenous, q12h CHAPIN Continuous Meds: dexmedeTOMIDine, 0.2-1.5 mcg/kg/hr EPINEPHrine, 1-35 mcg/min heparin, 0.1-40 Units/kg/hr, Last Rate: 17.1 Units/kg/hr (09/18/24 1430) insulin regular, 0.01 Units/hr norepinephrine, 5-70 mcg/min phenylephrine, 35-350 mcg/min sodium bicarbonate 25 mEq in dextrose 5 % 1,000 mL infusion, 0.1-40 mL/hr, Last Rate: 12.4 mL/hr (09/18/24 0614) PRN Meds: PRN medications: acetaminophen, ALPRAZolam, calcium gluconate, calcium gluconate, dextrose, dextrose, diphenhydrAMINE, glucagon, heparin, heparin, HYDROcodone-acetaminophen, magnesium oxide, magnesium sulfate, magnesium sulfate, magnesium sulfate, melatonin, naloxone, nitroglycerin, ondansetron, potassium & sodium phosphates, potassium chloride, potassium chloride, potassium chloride, Potassium chloride, potassium phosphate, potassium phosphate, sennosides, sodium chloride, sodium phosphate, sodium phosphate Imaging/StudiesRelevant studies reviewed in EMR XR chest 1 view 09/11/2024 NarrativePROCEDURE INFORMATION: Exam: XR Chest Exam date and time: 09/11/2024 3:28 PM Age: 59 years old Clinical indication: SOB TECHNIQUE:Imaging protocol: Radiologic exam of the chest. Views: 1 view. COMPARISON:No relevant prior studies available. FINDINGS: Lungs: Low lung volumes are present bilaterally. No consolidation. Bibasilar atelectasis. Pleural spaces: No pleural effusion. No pneumothorax. Heart/Mediastinum: Heart size is within normal limits. Atherosclerotic calcifications. Bones/joints: Degenerative changes of the thoracic spine. ImpressionNo acute radiographic abnormality. ELECTRONICALLY SIGNED BY PATIENCE BROWN MD ON 09/11/2024 AT 16:08. Problem listAssessment & Plan Coronary artery disease involving elim ira coronary artery of elim ira heart with unstable angina pectoris (HCC) NSTEMI (non-ST elevated myocardial infarction) ([facility]/HCC) (HCC) HTN (hypertension) HLD (hyperlipidemia) Paroxysmal atrial fibrillation (CMS/HCC) (HCC) Acute systolic congestive heart failure (CMS/HCC) (HCC) Cardiogenic shock (HCC) PlanDAPT, high intensity statin, Bblocker Heparin drip MCS with Impella device at P4 Heart healthy diet, NPO after midnight Pain management Plans staged PCI in am ICU lines/tube/prophylaxisIV Access: Peripheral IV 09/10/24 Left Antecubital (Active) Peripheral IV 09/10/24 Anterior;Distal;Right;Upper Arm (Active)and Urinary Catheter: Urethral Catheter Temperature probe 16 Fr. (Active) Prophylaxis:DVT - heparin - 1000 units/mL, 1000 units/mL, 1000 units/mL, 50 units/mL Stress ulcer - This patient does not have an active medication from one of the medication groupers. DispositionUnchanged. Code statusCode Status: Full Code AttestationCase discussed on MDRs. I personally evaluated the patient and reviewed the EMR. Case discussed multiple times with the nursing staff during the shift. Requires critical care due to the acute impairment of vital organ systems and a high probability of imminent and life threatening deterioration. Rhiannon Whitlock DOCritical Care Medicine [facility] ON PICTURE OPERATOR * Abisai Camacho MD - 09/18/2024 4:19 PM MOTION PICTURE OPERATOR Images from the original note were not included. [facility] ([facility]) Integrated Hospital Medicine Program Progress Note Patient:Ricardo Hanson CODE Status: Full CodeBirth Date:1965 Admission Date:09/10/2024 Attending:Abisai Camacho MD LOS: 8days Reason for visit:Coronary artery disease involving elim ira coronary artery of elim ira heart with unstable angina pectoris (HCC) Subjective Resting in bed. Impella in place. Did not sleep well last night and has some anxiety due to Impella device in place. No chest pain, shortness of breath, nausea, diaphoresis or other complaints. ROS14 point ROS negative except as mentioned above. Physical Exam: PHYSICAL EXAMINATION: Visit VitalsBP 102/70 Pulse 82 Temp 36.3 ?C (97.4 ?F) Resp 14 Ht 1.854 m (6' 0.99") Wt 90.7 kg (199 lb 15.3 oz) SpO2 96% BMI 26.39 kg/m? Smoking Status Never BSA 2.16 m? Physical Exam: Constitutional: Appearance: Normal appearance. HENT: Head: Normocephalic and atraumatic. Nose: Nose normal. Mouth/Throat: Mouth: Mucous membranes are moist. Eyes: Extraocular Movements: Extraocular movements intact. Pupils: Pupils are equal, round, and reactive to light. Cardiovascular: Rate and Rhythm: Normal rate and regular rhythm. Heart sounds: Normal heart sounds. Pulmonary: Effort: Pulmonary effort is normal. Breath sounds: Normal breath sounds. Abdominal: General: Abdomen is flat. Palpations: Abdomen is soft. Musculoskeletal: General: Normal range of motion. Cervical back: Normal range of motion and neck supple. Skin: General: Skin is warm and dry. Capillary Refill: Capillary refill takes more than 3 seconds. Neurological: General: No focal deficit present. Mental Status: He is alert and oriented to person, place, and time. Psychiatric: Mood and Affect: Mood normal. Behavior: Behavior normal. Current Medications:aspirin EC, 81 mg, Oral, Daily Or aspirin, 300 mg, Rectal, Daily atorvastatin, 80 mg, Oral, Nightly busPIRone, 5 mg, Oral, TID clopidogrel, 75 mg, Oral, Daily docusate sodium, 100 mg, Oral, BID fluticasone, 2 spray, Each Nostril, Daily heparin, 4,000 Units, Intravenous, Once metoprolol tartrate, 12.5 mg, Oral, q12h CHAPIN sodium chloride, 10 mL, Intravenous, q12h CHAPIN dexmedeTOMIDine, 0.2-1.5 mcg/kg/hrEPINEPHrine, 1-35 mcg/min heparin, 0.1-40 Units/kg/hr, Last Rate: 17.1 Units/kg/hr (09/18/24 1430) insulin regular, 0.01 Units/hr norepinephrine, 5-70 mcg/min phenylephrine, 35-350 mcg/min sodium bicarbonate 25 mEq in dextrose 5 % 1,000 mL infusion, 0.1-40 mL/hr, Last Rate: 12.4 mL/hr (09/18/24 0614) PRN medications: acetaminophen, ALPRAZolam, calcium gluconate, calciumgluconate, dextrose, dextrose, diphenhydrAMINE, glucagon, heparin, heparin, HYDROcodone-acetaminophen, magnesium oxide, magnesium sulfate, magnesium sulfate, magnesium sulfate, melatonin, naloxone, nitroglycerin, ondansetron, potassium & sodium phosphates, potassium chloride, potassium chloride, potassium chloride, Potassium chloride, potassium phosphate, potassium phosphate, sennosides, sodium chloride, sodium phosphate, sodium phosphate Current Diet:Adult Diet Heart Healthy; Finger Foods Input/Output: Intake/Output Summary (Last 24 hours) at 09/18/2024 1619Last data filed at 09/18/2024 1300 Gross per 24 hour Intake 1042.4 ml Output 1680 ml Net -637.6 ml Labs & Imaging: Labs: Results from last 7 days Lab Units 09/18/24 0421 WBC 10*3/uL 8.97 HEMOGLOBIN g/dL 14.2 HEMATOCRIT % 39.6 PLATELETS 10*3/uL 193 LYMPHOCYTES % 19.2 MONOCYTES % 9.3 Results from last 7 daysLab Units 09/18/24 0420 SODIUM mEq/L 134* POTASSIUM mEq/L 4.2 CHLORIDE mEq/L 104 CO2 mEq/L 26.4 BUN mg/dL 12 CREATININE mg/dL 0.87 CALCIUM mg/dL 9.3 PROTEIN TOTAL g/dL 6.4 BILIRUBIN TOTAL mg/dL 1.61* ALK PHOS U/L 62 ALT U/L 71* AST U/L 94* GLUCOSE mg/dL 123* CULTURE :No results found for the last 90 days. IMAGING :=== 09/10/24 === XR CHEST 1 VIEW - Impression -No acute radiographic abnormality. ELECTRONICALLY SIGNED BY PATIENCE BROWN MD ON 09/11/2024 AT 16:08. === 09/10/24 === CT CHEST WO IV CONTRAST - Impression -Severe coronary artery calcifications. ELECTRONICALLY SIGNED BY TIEN PAREDES MD ON 09/15/2024 AT 15:01. === 09/10/24 === US CAROTID ARTERY DOPPLER BILATERAL - Impression -No carotid arterial stenosis. REFERENCES:The degree of internal carotid artery stenosis is based on criteria defined by the IAC Vascular Testing criteria. Normal is no stenosis. Mild is less than 50% stenosis. Moderate is 50-69% stenosis. Severe is greater than 69% stenosis to near occlusion. Near occlusion is a markedly narrowed lumen. Total occlusion is no detectable patent lumen. ELECTRONICALLY SIGNED BY MANDY REEVES MD ON 09/11/2024 AT 17:29. Transthoracic echo (TTE) complete 09/10/2024 Interpretation SummaryLeft Ventricle: Left ventricle is dilated, LVEDD 6.25cm. Left ventricular regional wall motion abnormalities present. There is global hypokinesis with apical akinesis. Reduced systolic function with an estimated EF of 20 - 25%. Grade II diastolic dysfunction of the left ventricle. Mitral Valve: Trace mitral regurgitation present. Tricuspid Valve: Trace tricuspid regurgitation present. Inadequate TR to estimate the PASP. Assessment & Plan: Mr. Ricardo Hanson is a 59-year-old male with past medical history significant for hypertension, hypothyroid and hyperlipidemia presented to the emergency room with complaint of longstanding history of intermittent chest pain. Patient underwent cardiac catheterization where he was found to have multivessel CAD. Patient was transferred to our facility for cardiothoracic surgery evaluation. Patient underwent LHC and Impella protected PCI of the proximal-distal RCA on 09/17/24. CABG has been postponed. Assessment & PlanCoronary artery disease involving elim ira coronary artery of elim ira heart with unstable angina pectoris (HCC) S/p Impella protected PCI of the proximal-distal RCA on 09/17/24 Plans for LHC and PCI again on 09/19/24 Continue ASA, heparin gtt, statin CT Surgery primary NSTEMI (non-ST elevated myocardial infarction) (CMS/HCC) (HCC) S/p Impella protected PCI of the proximal-distal RCA HTN (hypertension) Blood pressures are stable Defer antihypertensives to Cardiology team Consider PRN medications if systolics only if >180 Paroxysmal atrial fibrillation (CMS/HCC) (HCC) Patient is currently rate controlled and NSR Patient currently on heparin gtt, will need anticoagulation on discharge Acute systolic congestive heart failure (CMS/HCC) (HCC) Continue strict I's and O's, 1 L fluid restriction, daily weights Continue aspirin, statin GDMT as BP tolerates Cardiology on board HLD (hyperlipidemia) Continue statin Cardiogenic shock ([facility]) Resolved DVT prophylaxis: heparin - 1000 units/mL, 1000 units/mL, 1000 units/mL, 50 units/mL Disposition Plan: pending clinical improvement and cardiology clearance Abisai Camacho MDHospital Medicine [facility] ON PICTURE OPERATOR * Dang Soliman MD - 09/18/2024 1:58 PM MOTION PICTURE OPERATOR CARDIOLOGY PROGRESS NOTE Subjective: Was anxious yesterday from having to stay on bedrest but feels more relaxed now. A little bit of soreness in the chest. Occ ectopy/PVCs. Physical Exam: 09/18/2024 12:15 PM 09/18/2024 12:30 PM 09/18/2024 12:45 PM 09/18/2024 1:00 PM 09/18/2024 1:15 PM 09/18/2024 1:30 PM 09/18/2024 1:45 PM Vitals Systolic 103 105 100 96 104 96 Diastolic 69 78 73 79 68 71 Heart Rate 76 74 75 74 72 70 69 Resp 14 14 14 11 12 11 11 General Appearance: No acute distress Lungs: CTA bilaterally, no wheezes/rales/rhonchi, and good air entry Heart: Regular rate and rhythm Abdomen: Soft nontender Extremities: No c/c/e Neurologic: No focal deficits aspirin EC, 81 mg, Oral, Daily Or aspirin, 300 mg, Rectal, Daily atorvastatin, 80 mg, Oral, Nightly busPIRone, 5 mg, Oral, TID clopidogrel, 75 mg, Oral, Daily docusate sodium, 100 mg, Oral, BID fluticasone, 2 spray, Each Nostril, Daily heparin, 4,000 Units, Intravenous, Once metoprolol tartrate, 12.5 mg, Oral, q12h CHAPIN sodium chloride, 10 mL, Intravenous, q12h CHAPIN ASSESSMENT: Ricardo Hanson is a 59-year-old male admitted on 09/10/2024 after presenting with an NSTEMI. His pertinent problem list includes: Non-ST elevation myocardial infarction Severe, multivessel coronary artery disease Heart failure with reduced ejection fraction (NYHA class III, stage C, LVEF 20-25%, LVEDD 6 cm) from ischemic cardiomyopathy Paroxysmal atrial fibrillation with intermittent rapid ventricular response Hypertension Dyslipidemia RECOMMENDATIONS/PLAN: - Coronary angiography on 09/10/2024 at [facility] and [facility] demonstrated a subtotal occlusion of the proximal LAD with left-left collateral and right-left collateral filling, severe stenosis in the proximal circumflex involving an obtuse marginal branch, a [employer] of the mid RCA with bridging collaterals - Referred for cardiothoracic surgery evaluation and potential bypass but ultimately turned down because of lack of suitable bypass conduits - Status post PCI of the proximal-distal RCA using overlapping Keller Synergy 3.0 x 16 mm, 2.75 x 30 mm and 2.25 x 16 mm FIORELLA - Impella placed during PCI. Will leave in place until staged intervention of the LAD and circumflex vessels tomorrow - Continue dual antiplatelet therapy and high intensity statin - Continue metoprolol for now. Will eventually escalate guideline directed medical therapy as blood pressure tolerates. Had to intermittently hold medications because of borderline blood pressures. Blood pressure trends are more normal. Will assess and add as feasible - The patient remains in sinus rhythm. Need to consider further anticoagulation after bypass - Will continue to follow Thank you for allowing us to participate in the care of this patient. Please call with any questions or concerns. Dang Soliman MD Interventional Cardiology [facility] ON PICTURE OPERATOR * Abisai Camacho MD - 09/17/2024 1:23 PM MOTION PICTURE OPERATOR Images from the original note were not included. [facility] ([facility]) Integrated [facility] Medicine Program Progress Note Patient:Ricardo Page CODE Status: Full CodeBirth Date:1965 Admission Date:09/10/2024 Attending:Abisai Camacho MD LOS: 7days Reason for visit:Coronary artery disease involving elim ira coronary artery of elim ira heart with unstable angina pectoris (HCC) Subjective Resting in bed. Had Impella protected PCI of the proximal-distal RCA doneearlier today. States he had some chest discomfort right after the procedure but it is easing up now. Impella in place. No shortness of breath, nausea, diaphoresis or other complaints. ROS14 point ROS negative except as mentioned above. Physical Exam: PHYSICAL EXAMINATION: Visit VitalsBP (!) 140/103 Pulse 74 Temp 36.2 ?C (97.2 ?F) Resp 23 Ht 1.854 m (6' 0.99") Wt 90.1 kg (198 lb 10.2 oz) SpO2 100% BMI 26.21 kg/m? Smoking Status Never BSA 2.15 m? Physical Exam: Constitutional: Appearance: Normal appearance. HENT: Head: Normocephalic and atraumatic. Nose: Nose normal. Mouth/Throat: Mouth: Mucous membranes are moist. Eyes: Extraocular Movements: Extraocular movements intact. Pupils: Pupils are equal, round, and reactive to light. Cardiovascular: Rate and Rhythm: Regular rhythm. Tachycardia present. Heart sounds: Normal heart sounds. Pulmonary: Effort: Pulmonary effort is normal. Breath sounds: Normal breath sounds. Abdominal: General: Abdomen is flat. Palpations: Abdomen is soft. Musculoskeletal: General: Normal range of motion. Cervical back: Normal range of motion and neck supple. Skin: General: Skin is warm and dry. Capillary Refill: Capillary refill takes more than 3 seconds. Neurological: General: No focal deficit present. Mental Status: He is alert and oriented to person, place, and time. Psychiatric: Mood and Affect: Mood normal. Behavior: Behavior normal. Current Medications:aspirin EC, 81 mg, Oral, Daily Or aspirin, 300 mg, Rectal, Daily atorvastatin, 80 mg, Oral, Nightly clopidogrel, 75 mg, Oral, Daily docusate sodium, 100 mg, Oral, BID fluticasone, 2 spray, Each Nostril, Daily heparin, 4,000 Units, Intravenous, Once metoprolol tartrate, 12.5 mg, Oral, q12h CHAPIN sodium chloride, 10 mL, Intravenous, q12h sodium chloride, 10 mL, Intravenous, q12h sodium chloride, 10 mL, Intravenous, q12h CHAPIN dexmedeTOMIDine, 0.2-1.5 mcg/kg/hrEPINEPHrine, 1-35 mcg/min heparin, 0.1-40 Units/kg/hr, Last Rate: 17.1 Units/kg/hr (09/17/24 1111) insulin regular, 0.01 Units/hr norepinephrine, 5-70 mcg/min phenylephrine, 35-350 mcg/min sodium bicarbonate 25 mEq in dextrose 5 % 1,000 mL infusion, 0.1-40 mL/hr, Last Rate: 12.4 mL/hr (09/17/24 1120) PRN medications: acetaminophen, calcium gluconate, calcium gluconate, dextrose, dextrose, diphenhydrAMINE, glucagon, heparin, heparin, magnesium oxide, magnesium sulfate, magnesium sulfate, magnesium sulfate, naloxone, nitroglycerin, ondansetron, potassium & sodium phosphates, potassium chloride, potassium chloride, potassium chloride, Potassium chloride, potassium phosphate, potassium phosphate, sennosides, sodium chloride, sodium chloride, sodium chloride, sodium chloride, sodium phosphate, sodium phosphate Current Diet:Adult Diet Heart Healthy; Finger Foods Input/Output: Intake/Output Summary (Last 24 hours) at 09/17/2024 1323Last data filed at 09/17/2024 1200 Gross per 24 hour Intake 1000 ml Output 311 ml Net 689 ml Labs & Imaging: Labs: Results from last 7 days Lab Units 09/17/24 1115 WBC 10*3/uL 6.92 HEMOGLOBIN g/dL 14.8 HEMATOCRIT % 42.1 PLATELETS 10*3/uL 188 LYMPHOCYTES % 30.3 MONOCYTES % 6.9 Results from last 7 daysLab Units 09/17/24 1215 09/17/24 0051 09/16/24 0529 SODIUM mEq/L -- 138 140 POTASSIUM mEq/L -- 4.1 4.4 CHLORIDE mEq/L -- 107 107 CO2 mEq/L -- 26.2 26.3 BUN mg/dL -- 12 9 CREATININE mg/dL -- 0.84 0.94 CALCIUM mg/dL -- 9.1 9.3 PROTEIN TOTAL g/dL -- -- 6.5 BILIRUBIN TOTAL mg/dL -- -- 0.97 ALK PHOS U/L -- -- 62 ALT U/L -- -- 69* AST U/L -- -- 71* GLUCOSE mg/dL -- 96 108* POC GLUCOSE mg/dL 93 -- -- CULTURE :No results found for the last 90 days. IMAGING :=== 09/10/24 === XR CHEST 1 VIEW - Impression -No acute radiographic abnormality. ELECTRONICALLY SIGNED BY PATIENCE BROWN MD ON 09/11/2024 AT 16:08. === 09/10/24 === CT CHEST WO IV CONTRAST - Impression -Severe coronary artery calcifications. ELECTRONICALLY SIGNED BY TIEN PAREDES MD ON 09/15/2024 AT 15:01. === 09/10/24 === US CAROTID ARTERY DOPPLER BILATERAL - Impression -No carotid arterial stenosis. REFERENCES:The degree of internal carotid artery stenosis is based on criteria defined by the IAC Vascular Testing criteria. Normal is no stenosis. Mild is less than 50% stenosis. Moderate is 50-69% stenosis. Severe is greater than 69% stenosis to near occlusion. Near occlusion is a markedly narrowed lumen. Total occlusion is no detectable patent lumen. ELECTRONICALLY SIGNED BY MANDY REEVES MD ON 09/11/2024 AT 17:29. Transthoracic echo (TTE) complete 09/10/2024 Interpretation SummaryLeft Ventricle: Left ventricle is dilated, LVEDD 6.25cm. Left ventricular regional wall motion abnormalities present. There is global hypokinesis with apical akinesis. Reduced systolic function with an estimated EF of 20 - 25%. Grade II diastolic dysfunction of the left ventricle. Mitral Valve: Trace mitral regurgitation present. Tricuspid Valve: Trace tricuspid regurgitation present. Inadequate TR to estimate the PASP. Assessment & Plan: Mr. Ricardo Hanson is a 59-year-old male with past medical history significant for hypertension, hypothyroid and hyperlipidemia presented to the emergency room with complaint of longstanding history of intermittent chest pain. Patient underwent cardiac catheterization where he was found to have multivessel CAD. Patient was transferred to our facility for cardiothoracic surgery evaluation. Patient underwent LHC and Impella protected PCI of the proximal-distal RCA on 09/17/24. CABG has been postponed. Assessment & PlanCoronary artery disease involving elim ira coronary artery of elim ira heart with unstable angina pectoris (HCC) S/p Impella protected PCI of the proximal-distal RCA on 09/17/24 Continue ASA, heparin gtt, statin CT Surgery primary NSTEMI (non-ST elevated myocardial infarction) (CMS/HCC) ([facility]) S/p Impella protected PCI of the proximal-distal RCA HTN (hypertension) Blood pressures are stable Defer antihypertensives to Cardiology team Consider PRN medications if systolics only if >180 Paroxysmal atrial fibrillation (CMS/HCC) ([facility]) Patient is currently rate controlled and NSR Patient currently on heparin gtt, will need anticoagulation on discharge Acute systolic congestive heart failure (CMS/[facility]) ([facility]) Continue strict I's and O's, 1 L fluid restriction, daily weights Continue aspirin, statin GDMT as BP tolerates Cardiology on board HLD (hyperlipidemia) Continue statin DVT prophylaxis: heparin - 1000 units/mL, 1000 units/mL, 1000 units/mL, 50 units/mL Disposition Plan: pending clinical improvement and cardiology clearance Abisai Camacho MDHospital Medicine [facility] ON PICTURE OPERATOR * Wyatt Mccarthy MD - 09/17/2024 10:35 AM MOTION PICTURE OPERATOR Images from the original note were not included. CARDIOLOGY PROGRESS NOTE: SUBJECTIVE: No major overnight cardiovascular events. No reports of chest pain, worsening dyspnea, palpitations, lightheadedness, or dizziness. OBJECTIVE: Vitals: 09/17/24 1130 09/17/24 1145 09/17/24 1200 09/17/24 1600 BP: 130/81 131/80 (!) 140/103 Pulse: 74 68 74 Resp: 12 Temp: 36.2 ?C (97.2 ?F) 36.3 ?C (97.3 ?F) SpO2: 100% 100% 100% Physical Exam: GEN: NAD, cooperative with exam CVS: S1 &S2, RRR, no murmurs, rubs, or gallops RESP: normal effort, clear to auscultation bilaterally ABD: soft, nontender, nondistended, BS+ Medications: Current Facility-Administered Medications: acetaminophen (Tylenol) tablet 650 mg, 650 mg, Oral, q6h PRN, Tonja Epps NP, 650 mg at 09/17/24 1323 aspirin EC EC tablet 81 mg, 81 mg, Oral, Daily, 81 mg at 09/16/24 1302 OR aspirin suppository 300 mg, 300 mg, Rectal, Daily, Wyatt Mccarthy MD atorvastatin (Lipitor) tablet 80 mg, 80 mg, Oral, Nightly, Dang Soliman MD, 80 mg at 09/16/242022 busPIRone (Buspar) tablet 5 mg, 5 mg, Oral, TID, Rhiannon Whitlock DO, 5 mg at 09/17/24 1529 calcium gluconate 3 g in sodium chloride 0.9 % 150 mL IVPB, 3 g, Intravenous, PRN, Heidy Quiñones MD calcium gluconate in NaCl 100mL IVPB 2 g, 2 g, Intravenous, PRN, Heidy Quiñones MD clopidogrel (Plavix) tablet 75 mg, 75 mg, Oral, Daily, Wyatt Mccarthy MD dexmedeTOMIDine in NS (Precedex) 400 mcg in 100 mL (4 mcg/mL) infusion, 0.2-1.5 mcg/kg/hr, Intravenous, Continuous, Reji Pack MD dextrose 10 % infusion 125 mL, 125 mL, Intravenous, PRN, Heidy Quiñones MD dextrose 10 % infusion 250 mL, 250 mL, Intravenous, PRN, Heidy Quiñones MD diphenhydrAMINE (BENADryl) liquid 12.5 mg, 12.5 mg, Oral, q6h PRN, Heidy Quiñones MD docusate sodium (Colace) capsule 100 mg, 100 mg, Oral, BID, Heidy Quiñones MD, 100 mg at 09/17/24 1704 EPINEPHrine (Adrenalin) 4 mg in sodium chloride 0.9 % 250 mL (0.016 mg/mL) infusion, 1-35 mcg/min, Intravenous, Continuous, Reji Pack MD fluticasone (Flonase) nasal spray 2 spray, 2 spray, Each Nostril, Daily, Ayana Hargrove MD, 2 spray at 09/11/24 1043 glucagon injection 1 mg, 1 mg, Intramuscular, PRN, Heidy Quiñones MD heparin 1000 units/mL injection 1,800 Units, 20 Units/kg, Intravenous, PRN, Wyatt Mccarthy MD, 1,800 Units at 09/11/24 1134 heparin 1000 units/mL injection 3,600 Units, 40 Units/kg, Intravenous, PRN, Wyatt Mccarthy MD, 3,600 Units at 09/13/24 0253 heparin 1000 units/mL injection 4,000 Units, 4,000 Units, Intravenous, Once, Wyatt Mccarthy MD heparin 50 units/mL in sodium chloride 0.45 %, 0.1-40 Units/kg/hr, Intravenous, Continuous, Wyatt Mccarthy MD, Last Rate: 30.8 mL/hr at 09/17/24 1111, 17.1 Units/kg/hr at 09/17/24 1111 HYDROcodone-acetaminophen ([place]) 5-325 MG per tablet 1 tablet, 1 tablet, Oral, q6h PRN, Rhiannon Whitlock DO, 1 tablet at 09/17/24 1439 insulin regular (Myxredlin) 100-0.9 UT/100ML-% infusion (premix), 0.01 Units/hr, Intravenous, Continuous, Reji Pack MD magnesium oxide (Mag-Ox) tablet 800 mg, 800 mg, Oral, PRN, Heidy Quiñones MD magnesium sulfate in D5W IVPB 1 g, 1 g, Intravenous, PRN, Heidy Quiñones MD magnesium sulfate IVPB 2 g, 2 g, Intravenous, PRN, Heidy Quiñones MD magnesium sulfate IVPB 4 g, 4 g, Intravenous, PRN, Heidy Quiñones MD melatonin tablet 6 mg, 6 mg, Oral, Nightly PRN, Rhiannon Whitlock DO metoprolol tartrate (Lopressor) tablet 12.5 mg, 12.5 mg, Oral, q12h CHAPIN, Anne Paul, JARED, 12.5 mg at 09/16/242022 naloxone (Narcan) injection 0.04 mg, 0.04 mg, Intravenous, PRN, Heidy Quiñones MD nitroglycerin (Nitrostat) SL tablet 0.4 mg, 0.4 mg, Sublingual, q5 min PRN, Wyatt Mccarthy MD norepinephrine (Levophed) 8 mg in dextrose 5% 250 mL (32 mcg/mL) infusion, 5-70 mcg/min, Intravenous, Continuous, Reji Pack MD ondansetron (Zofran) injection 4 mg, 4 mg, Intravenous, q8h PRN, Heidy Quiñones MD phenylephrine (Vazculep) 50 mg in sodium chloride 0.9 % 250 mL (0.2 mg/mL) infusion, 35-350 mcg/min, Intravenous, Continuous, Reji Pack MD potassium & sodium phosphates (Phos-NaK) 280-160-250 MG packet 2 packet, 2 packet, Oral, PRN, Heidy Quiñones MD potassium chloride CR (Klor-Con M20) ER tablet 20 mEq, 20 mEq, Oral, PRN, Heidy Quiñones MD potassium chloride CR (Klor-Con M20) ER tablet 40 mEq, 40 mEq, Oral, PRN, Heidy Quiñones MD, 40 mEq at 09/12/24 1732 potassium chloride IVPB 10 mEq, 10 mEq, Intravenous, PRN, Heidy Quiñones MD Potassium chloride solution 20 mEq, 20 mEq, Nasogastric, PRN, Heidy Quiñones MD potassium phosphates 15 mmol in sodium chloride 0.9 % 100 mL infusion, 15 mmol, Intravenous, PRN, Heidy Quiñones MD Potassium Phosphates 30 mmol in sodium chloride 0.9 % 250 mL infusion, 30 mmol, Intravenous, PRN, Heidy Quiñones MD sennosides (Senokot) tablet 17.2 mg, 2 tablet, Oral, Nightly PRN, Heidy Quiñones MD sodium bicarbonate 25 mEq in dextrose 5 % 1,000 mL infusion, 0.1-40 mL/hr, Intravenous, Continuous, Wyatt Mccarthy MD, Last Rate: 12.4 mL/hr at 09/17/24 1120, 12.4 mL/hr at 09/17/24 1120 sodium chloride (NS) 0.9 % flush 10 mL, 10 mL, Intravenous, q12h, Wyatt Mccarthy MD, 10 mL at 09/17/24 1543 sodium chloride (NS) 0.9 % flush 10 mL, 10 mL, Intravenous, PRN, Wyatt Mccarthy MD sodium chloride (NS) 0.9 % flush 10 mL, 10 mL, Intravenous, q12h, Heidy Quiñones MD, 10 mL at 09/15/24 0532 sodium chloride (NS) 0.9 % flush 10 mL, 10 mL, Intravenous, PRN, Heidy Quiñones MD sodium chloride (NS) 0.9 % flush 10 mL, 10 mL, Intravenous, q12h CHAPIN, Wyatt Mccarthy MD sodium chloride (NS) 0.9 % flush 10 mL, 10 mL, Intravenous, PRN, Wyatt Mccarthy MD sodium chloride 0.9 % infusion 250 mL, 250 mL, Intravenous, PRN, Wyatt Mccarthy MD sodium phosphates 15 mmol in dextrose 5 % 100 mL IVPB, 15 mmol, Intravenous, PRN, Heidy Quiñones MD sodium phosphates 30 mmol in dextrose 5 % 100 mL IVPB, 30 mmol, Intravenous, PRN, Heidy Quiñones MD Data All pertinent labs, images, and/or procedures were reviewed if needed and available in the electronic health record. ASSESSMENT: Ricardo Hanson is a 59-year-old male admitted on 09/10/2024 after presenting with an NSTEMI. His pertinent problem list includes: Non-ST elevation myocardial infarction Severe, multivessel coronary artery disease Heart failure with reduced ejection fraction (NYHA class III, stage C, LVEF 20-25%, LVEDD 6 cm) from ischemic cardiomyopathy Paroxysmal atrial fibrillation with intermittent rapid ventricular response Hypertension Dyslipidemia RECOMMENDATIONS/PLAN: - Coronary angiography on 09/10/2024 at [facility] and [facility] demonstrated a subtotal occlusion of the proximal LAD with left-left collateral and right-left collateral filling, severe stenosis in the proximal circumflex involving an obtuse marginal branch, a [employer] of the mid RCA with bridging collaterals - Referred for cardiothoracic surgery evaluation and potential bypass but ultimately turned down because of lack of suitable bypass conduits - Status post PCI of the proximal-distal RCA using overlapping Keller Synergy 3.0 x 16 mm, 2.75 x 30 mm and 2.25 x 16 mm FIORELLA - Impella placed during PCI. Will leave in place until staged intervention of the LAD and circumflex vessels on Sunday - Continue dual antiplatelet therapy and high intensity statin - Continue metoprolol for now. Will eventually escalate guideline directed medical therapy as blood pressure tolerates. Had to intermittently hold medications because of borderline blood pressures. Blood pressure trends are more normal. Will assess and add as feasible - The patient remains in sinus rhythm. Need to consider further anticoagulation after bypass - Will continue to follow Thank you for allowing us to participate in the care of this patient. Please call with any questions/concerns. Please be advised that this note was created with the assistance of a dictation software. Please interpret appropriately in the context of possible sight effects specialist errors. Wyatt Mccarthy MD Interventional Cardiology ON PICTURE OPERATOR * Reji Dykes, - 09/16/2024 2:20 PM MOTION PICTURE OPERATOR Images from the original note were not included. [facility] Cardi[facility]acic [facility] V[facility]- [address], [address] [place] [address] Dept: [phone] Patient: Ricardo Hanson Date of : 1965 Gender: male Daily Progress Note Subjective No acute events overnight No chest pain or shortness of breath Patient was scheduled for coronary artery bypass today Preoperatively vein mapping was performed. It is noted that patient did not have adequate saphenous vein on bilateral lower extremities. Surgery was canceled for planned hybrid PCI in future coronary artery bypass Objective Last Recorded Vitals Blood pressure 103/65, pulse 69, temperature 37 ?C (98.6 ?F), temperature source Temporal, resp. rate 10, height 1.854 m (6' 1"), weight 90.1 kg (198 lb 10.2 oz), SpO2 97%. alert, cooperative, and no distress unlabored breathing Medications Current Outpatient Medications Medication Instructions amLODIPine (Norvasc) 10 MG tablet 1 tablet, Daily atorvastatin (LIPITOR) 20 mg, Daily levothyroxine (Unithroid) 50 MCG tablet Daily before breakfast losartan-hydroCHLOROthiazide (Hyzaar) 100-12.5 MG tablet 1 tablet, Daily aspirin EC, 81 mg, Oral, Daily Or aspirin, 300 mg, Rectal, Daily atorvastatin, 80 mg, Oral, Nightly [START ON 09/17/2024] clopidogrel, 75 mg, Oral, Daily docusate sodium, 100 mg, Oral, BID fluticasone, 2 spray, Each Nostril, Daily heparin, 4,000 Units, Intravenous, Once metoprolol tartrate, 12.5 mg, Oral, q12h CHAPIN sodium chloride, 10 mL, Intravenous, q12h sodium chloride, 10 mL, Intravenous, q12h dexmedeTOMIDine, 0.2-1.5 mcg/kg/hr EPINEPHrine, 1-35 mcg/min heparin, 0.1-40 Units/kg/hr, Last Rate: 18.1 Units/kg/hr (09/16/24 1302) insulin regular, 0.01 Units/hr norepinephrine, 5-70 mcg/min phenylephrine, 35-350 mcg/min PRN medications: acetaminophen, calcium gluconate, calcium gluconate, dextrose, dextrose, diphenhydrAMINE, glucagon, heparin, heparin, magnesium oxide, magnesium sulfate, magnesium sulfate, magnesium sulfate, naloxone, nitroglycerin, ondansetron, potassium & sodium phosphates, potassium chloride, potassium chloride, potassium chloride, Potassium chloride, potassium phosphate, potassium phosphate, sennosides, sodium chloride, sodium chloride, sodium chloride, sodium phosphate, sodium phosphate VTE Prophylaxis VTE prophyllaxis: heparin - 1000 units/mL, 1000 units/mL, 1000 units/mL, 50 units/mL Labs Pertinent Labs :Lab Results Component Value Date WBC 6.47 09/16/2024 Hgb 14.2 09/16/2024 Hct 42.2 09/16/2024 Plt Count 192 09/16/2024 Lab ResultsComponent Value Date Sodium Lvl 140 09/16/2024 Potassium Lvl 4.4 09/16/2024 Chloride Lvl 107 09/16/2024 CO2 Lvl 26.3 09/16/2024 BUN 9 09/16/2024 Creatinine Lvl 0.94 09/16/2024 Glucose Lvl 108 (H) 09/16/2024 Radiology I have reviewed the lmaging from the last 24 hrs Stress test with myocardial perfusionLarge, severe mostly reversible defect in the anterior and apical (LAD territory) segments. Partially fixed, partially reversible defect in the interior (RCA territory) segment. Normal perfusion in the lateral wharton. Left ventricular global function is severely reduced during stress. The gated ejection fraction is 13%. The stress end diastolic cavity size is severely enlarged. Ejection fraction is 13% by visual estimation. CT CHEST WO IV CONTRAST Narrative: PROCEDURE INFORMATION: Exam: CT Chest Without Contrast; Diagnostic Exam date and time: 09/15/2024 2:28 PM Age: 59 years old Clinical indication: Pre op cabg. Chest pain. TECHNIQUE:Imaging protocol: Diagnostic computed tomography of the chest without contrast. Radiation optimization: All CT scans at this facility use at least one of these dose optimization techniques: automated exposure control; mA and/or kV adjustment per patient size (includes targeted exams where dose is matched to clinical indication); or iterative reconstruction. COMPARISON:DX XR CHEST 1 VIEW 09/11/2024 3:28 PM FINDINGS:Lungs: Scattered atelectatic changes. Minimal paraseptal bulla formation in the left upper lobe. Pleural spaces: Right apical pleural/parenchymal scarring. No pneumothorax. Heart: Heart size normal. Severe coronary artery calcifications. Lymph nodes: Unremarkable. No enlarged lymph nodes. Vasculature: Mild aortic atherosclerosis. Bones/joints: Unremarkable. No acute fracture.Soft tissues: Unremarkable. Impression: Severe coronary artery calcifications. ELECTRONICALLY SIGNED BY TIEN PAREDES MD ON 09/15/2024 AT 15:01. Assessment and Plan Assessment & PlanNSTEMI (non-ST elevated myocardial infarction) (CMS/HCC) (HCC) HTN (hypertension) HLD (hyperlipidemia) Coronary artery disease involving elim ira coronary artery of elim ira heart with unstable angina pectoris (HCC) Paroxysmal atrial fibrillation (CMS/HCC) (HCC) Acute systolic congestive heart failure (CMS/HCC) (HCC)NYHA Class II STS CALCULATED RISK SCORES: Surgery canceled today because patient does not have adequate vein for bypass. Plan was for warm bleeding heart three-vessel bypass. Because of patient's low EF and critical stenosis of the ostia of the circumflex, I felt single HAQUE to LAD bypass would not be adequate and patient would struggle postoperatively. Discussion was had with Dr. Mccarthy from cardiology who agreed. Decision was made to attempt PCI to circumflex and allow the patient to recover. In the near future we will plan for HAQUE to LAD bypass. Okay for diet today Continue heparin Follow cardiology recommendations for timing of PCI Reji Dykes DO ON PICTURE OPERATOR * Heidy Quiñones MD - 09/16/2024 11:03 AM MOTION PICTURE OPERATOR Images from the original note were not included. [facility] ([facility] Medicine Program Progress Note Patient:Ricardo Hanson Consultants: ConsultsBirth Date:1965 Admission Date:09/10/2024 Attending:Reji Dykes DO LOS: 6days CODE Status: Full Code Subjective Patient seen and examined.Surgeons at bedside discussing plan of care. REVIEW OF SYSTEMS:Complete 14 point review of system was assessed and is negative except for as mentioned above. Current Medications: Current Facility-Administered Medications:acetaminophen (Tylenol) tablet 650 mg, 650 mg, Oral, q6h PRN, Tonja Epps NP, 650 mg at 09/10/24 2336 aspirin EC EC tablet 81 mg, 81 mg, Oral, Daily, 81 mg at 09/15/24 0822 OR aspirin suppository 300 mg, 300 mg, Rectal, Daily, Wyatt Mccarthy MD atorvastatin (Lipitor) tablet 80 mg, 80 mg, Oral, Nightly, Dang Soliman MD, 80 mg at 09/15/24 2050 calcium gluconate 3 g in sodium chloride 0.9 % 150 mL IVPB, 3 g, Intravenous, PRN, Heidy Quiñones MD calcium gluconate in NaCl 100mL IVPB 2 g, 2 g, Intravenous, PRN, Heidy Quiñones MD dexmedeTOMIDine in NS (Precedex) 400 mcg in 100 mL (4 mcg/mL) infusion, 0.2-1.5 mcg/kg/hr, Intravenous, Continuous, Reji Pack MD dextrose 10 % infusion 125 mL, 125 mL, Intravenous, PRN, Heidy Quiñones MD dextrose 10 % infusion 250 mL, 250 mL, Intravenous, PRN, Heidy Quiñones MD diphenhydrAMINE (BENADryl) liquid 12.5 mg, 12.5 mg, Oral, q6h PRN, Heidy Quiñones MD docusate sodium (Colace) capsule 100 mg, 100 mg, Oral, BID, Heidy Quiñones MD, 100 mg at 09/14/24 1742 EPINEPHrine (Adrenalin) 4 mg in sodium chloride 0.9 % 250 mL (0.016 mg/mL) infusion, 1-35 mcg/min, Intravenous, Continuous, Reji Pack MD fluticasone (Flonase) nasal spray 2 spray, 2 spray, Each Nostril, Daily, Ayana Hargrove MD, 2 spray at 09/11/24 1043 glucagon injection 1 mg, 1 mg, Intramuscular, PRN, Heidy Quiñones MD heparin 1000 units/mL injection 1,800 Units, 20 Units/kg, Intravenous, PRN, Wyatt Mccarthy MD, 1,800 Units at 09/11/24 1134 heparin 1000 units/mL injection 3,600 Units, 40 Units/kg, Intravenous, PRN, Wyatt Mccarthy MD, 3,600 Units at 09/13/24 0253 heparin 1000 units/mL injection 4,000 Units, 4,000 Units, Intravenous, Once, Wyatt Mccarthy MD heparin 50 units/mL in sodium chloride 0.45 %, 0.1-40 Units/kg/hr, Intravenous, Continuous, Wyatt Mccarthy MD, Last Rate: 34.4 mL/hr at 09/15/24 2350, 19.1 Units/kg/hr at 09/15/24 2350 insulin regular (Myxredlin) 100-0.9 UT/100ML-% infusion (premix), 0.01 Units/hr, Intravenous, Continuous, Reji Pack MD magnesium oxide (Mag-Ox) tablet 800 mg, 800 mg, Oral, PRN, Heidy Quiñones MD magnesium sulfate in D5W IVPB 1 g, 1 g, Intravenous, PRN, Heidy Quiñones MD magnesium sulfate IVPB 2 g, 2 g, Intravenous, PRN, Heidy Quiñones MD magnesium sulfate IVPB 4 g, 4 g, Intravenous, PRN, Heidy Quiñones MD metoprolol tartrate (Lopressor) tablet 12.5 mg, 12.5 mg, Oral, q12h CHAPIN, Anne Paul NP, 12.5 mg at 09/16/24 0743 naloxone (Narcan) injection 0.04 mg, 0.04 mg, Intravenous, PRN, Heidy Quiñones MD nitroglycerin (Nitrostat) SL tablet 0.4 mg, 0.4 mg, Sublingual, q5 min PRN, Wyatt Mccarthy MD norepinephrine (Levophed) 8 mg in dextrose 5% 250 mL (32 mcg/mL) infusion, 5-70 mcg/min, Intravenous, Continuous, Reji Pack MD ondansetron (Zofran) injection 4 mg, 4 mg, Intravenous, q8h PRN, Heidy Quiñones MD phenylephrine (Vazculep) 50 mg in sodium chloride 0.9 % 250 mL (0.2 mg/mL) infusion, 35-350 mcg/min, Intravenous, Continuous, Reji Pack MD potassium & sodium phosphates (Phos-NaK) 280-160-250 MG packet 2 packet, 2 packet, Oral, PRN, Heidy Quiñones MD potassium chloride CR (Klor-Con M20) ER tablet 20 mEq, 20 mEq, Oral, PRN, Heidy Quiñones MD potassium chloride CR (Klor-Con M20) ER tablet 40 mEq, 40 mEq, Oral, PRN, Heidy Quiñones MD, 40 mEq at 09/12/24 1732 potassium chloride IVPB 10 mEq, 10 mEq, Intravenous, PRN, Heidy Quiñones MD Potassium chloride solution 20 mEq, 20 mEq, Nasogastric, PRN, Heidy Quiñones MD potassium phosphates 15 mmol in sodium chloride 0.9 % 100 mL infusion, 15 mmol, Intravenous, PRN, Heidy Quiñones MD Potassium Phosphates 30 mmol in sodium chloride 0.9 % 250 mL infusion, 30 mmol, Intravenous, PRN, Heidy Quiñones MD sennosides (Senokot) tablet 17.2 mg, 2 tablet, Oral, Nightly PRN, Heidy Quiñones MD sodium chloride (NS) 0.9 % flush 10 mL, 10 mL, Intravenous, q12h, Wyatt Mccarthy MD, 10 mL at 09/15/24 1722 sodium chloride (NS) 0.9 % flush 10 mL, 10 mL, Intravenous, PRN, Wyatt Mccarthy MD sodium chloride (NS) 0.9 % flush 10 mL, 10 mL, Intravenous, q12h, Heidy Quiñones MD, 10 mL at 09/15/24 0532 sodium chloride (NS) 0.9 % flush 10 mL, 10 mL, Intravenous, PRN, Heidy Quiñones MD sodium chloride 0.9 % infusion 250 mL, 250 mL, Intravenous, PRN, Wyatt Mccarthy MD sodium phosphates 15 mmol in dextrose 5 % 100 mL IVPB, 15 mmol, Intravenous, PRN, Heidy Quiñones MD sodium phosphates 30 mmol in dextrose 5 % 100 mL IVPB, 30 mmol, Intravenous, PRN, Heidy Quiñones MD Physical Exam: PHYSICAL EXAMINATION: Visit VitalsBP 121/74 Pulse 75 Temp 37 ?C (98.6 ?F) Resp 11 Ht 1.854 m (6' 1") Wt 90.1 kg (198 lb 10.2 oz) SpO2 97% BMI 26.21 kg/m? Smoking Status Never BSA 2.15 m? Physical Exam: Constitutional: Appearance: He is normal weight. HENT: Head: Normocephalic and atraumatic. Mouth/Throat: Mouth: Mucous membranes are moist. Pharynx: Oropharynx is clear. Eyes: Extraocular Movements: Extraocular movements intact. Conjunctiva/sclera: Conjunctivae normal. Cardiovascular: Rate and Rhythm: Normal rate. Pulses: Normal pulses. Pulmonary: Effort: Pulmonary effort is normal. Breath sounds: Normal breath sounds. Abdominal: General: Abdomen is flat. Palpations: Abdomen is soft. Musculoskeletal: General: Normal range of motion. Skin: General: Skin is warm and dry. Neurological: General: No focal deficit present. Mental Status: He is alert and oriented to person, place, and time. Psychiatric: Mood and Affect: Mood normal. Behavior: Behavior normal. Labs & Imaging: LABORATORY DATA: Pertinent Labs :Lab Results Component Value Date WBC 6.47 09/16/2024 Hgb 14.2 09/16/2024 Hct 42.2 09/16/2024 Plt Count 192 09/16/2024 Lab ResultsComponent Value Date Sodium Lvl 140 09/16/2024 Potassium Lvl 4.4 09/16/2024 Chloride Lvl 107 09/16/2024 CO2 Lvl 26.3 09/16/2024 BUN 9 09/16/2024 Creatinine Lvl 0.94 09/16/2024 Glucose Lvl 108 (H) 09/16/2024 RADIOLOGY DATA: Stress test with myocardial perfusion Large, severe mostly reversible defect in the anterior and apical (LAD territory) segments. Partially fixed, partially reversible defect in the interior (RCA territory) segment. Normal perfusion in the lateral wharton. Left ventricular global function is severely reduced during stress. The gated ejection fraction is 13%. The stress end diastolic cavity size is severely enlarged. Ejection fraction is 13% by visual estimation. CT CHEST WO IV CONTRAST Narrative: PROCEDURE INFORMATION: Exam: CT Chest Without Contrast; Diagnostic Exam date and time: 09/15/2024 2:28 PM Age: 59 years old Clinical indication: Pre op cabg. Chest pain. TECHNIQUE:Imaging protocol: Diagnostic computed tomography of the chest without contrast. Radiation optimization: All CT scans at this facility use at least one of these dose optimization techniques: automated exposure control; mA and/or kV adjustment per patient size (includes targeted exams where dose is matched to clinical indication); or iterative reconstruction. COMPARISON:DX XR CHEST 1 VIEW 09/11/2024 3:28 PM FINDINGS:Lungs: Scattered atelectatic changes. Minimal paraseptal bulla formation in the left upper lobe. Pleural spaces: Right apical pleural/parenchymal scarring. No pneumothorax. Heart: Heart size normal. Severe coronary artery calcifications. Lymph nodes: Unremarkable. No enlarged lymph nodes. Vasculature: Mild aortic atherosclerosis. Bones/joints: Unremarkable. No acute fracture.Soft tissues: Unremarkable. Impression: Severe coronary artery calcifications. ELECTRONICALLY SIGNED BY TIEN PAREDES MD ON 09/15/2024 AT 15:01. Glucose LvlDate Value Ref Range Status 09/16/2024 108 (H) 70 - 99 mg/dL Final Comment: Adult reference range values reflect the clinical guidelines of the [place] [employer]. POC GluDate Value Ref Range Status 09/15/2024 102 (H) 70 - 99 mg/dL Final Assessment & Plan: 59-year-old male with past medical history significant for hypertension, hypothyroid and hyperlipidemia presented to the emergency room with complaint of longstanding history of intermittent chest pain. Patient underwent cardiac catheterization where he was found to have multivessel CAD. Patient was transferred to our facility for cardiothoracic surgery evaluation. Assessment & PlanCoronary artery disease involving elim ira coronary artery of elim ira heart with unstable angina pectoris (HCC) Planned for CABG today, however it appears it is being postponed Patient will likely undergo PCI and CABG at a later date Continue ASA, heparin gtt, statin CT Surgery primary NSTEMI (non-ST elevated myocardial infarction) (CMS/HCC) (HCC) HTN (hypertension)Blood pressures are stable Defer antihypertensives to Cardiology team Consider PRN medications if systolics only if >180 Paroxysmal atrial fibrillation (CMS/HCC) ([facility])Patient is currently rate controlled and NSR Patient currently on heparin gtt, will need anticoagulation on discharge Acute systolic congestive heart failure ([facility]) ([facility])We will continue strict I's and O's, 2 L fluid restriction, daily weights We will continue aspirin, statin Can restart GDMT as BP tolerates Cardiology on board HLD (hyperlipidemia) Continue statin DVT prophylaxis: heparin - 1000 units/mL, 1000 units/mL, 1000 units/mL, 50 units/mL Current Diet: NPO Diet Disposition Anticipated: Depending on clinical improvement, likely 1 addl midnights. Reason for continue inpatient management: Monitor in CVICU possible PCI Heidy Quiñones MDHospital Medicine This report has been partially created through the use of voice recognition/text compilation software. Typographical and content errors may occur with this process. While efforts are made to detect and correct such errors, in some cases errors will persist. For this reason, wording in this document should be considered in the proper context and not strictly verbatim. ON PICTURE OPERATOR * Dang Soliman MD - 09/15/2024 1:46 PM MOTION PICTURE OPERATOR CARDIOLOGY PROGRESS NOTE Subjective: Feels fine. Physical Exam: 09/15/2024 4:00 AM 09/15/2024 5:00 AM 09/15/2024 6:00 AM 09/15/2024 7:00 AM 09/15/2024 8:00 AM 09/15/2024 9:00 AM 09/15/2024 10:00 AM Vitals Systolic 98 112 124 128 112 130 Diastolic 59 74 83 88 74 87 Heart Rate 80 64 84 74 70 69 84 Resp 19 13 20 14 13 19 General Appearance: No acute distress Lungs: CTA bilaterally, no wheezes/rales/rhonchi, and good air entry Heart: Regular rate and rhythm Abdomen: Soft nontender Extremities: No c/c/e Neurologic: No focal deficits [START ON 09/16/2024] acetaminophen, 1,000 mg, Oral, Once aspirin EC, 81 mg, Oral, Daily Or aspirin, 300 mg, Rectal, Daily atorvastatin, 80 mg, Oral, Nightly docusate sodium, 100 mg, Oral, BID fluticasone, 2 spray, Each Nostril, Daily [START ON 09/16/2024] gabapentin, 300 mg, Oral, Once heparin, 4,000 Units, Intravenous, Once metoprolol tartrate, 12.5 mg, Oral, q12h CHAPIN sodium chloride, 10 mL, Intravenous, q12h sodium chloride, 10 mL, Intravenous, q12h Assessment and Plan: Assessment and Plan: Ricardo Hanson is a 59 y.o. year old male patient with a h/o HTN, HLD who presented to the [facility] ER with chest pain, found to have pAF RVR and NSTEMI with hsTrop 18K. 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 Echo showed EF 20-25%. He was transferred to [facility] for CABG evaluation. Severe MV CAD -cardiac cath 09/10/2024 at [facility] showed proximal LAD [employer] with right to left & left to left collaterals, severe proximal CX stenosis, mid RCA [employer] with bridging collaterals -echo showed EF 20-25% -nuclear stress test shows reversibility/ischemia in the LAD and RCA territories -continue ASA, hep gtt, statin -plan for CABG on Sunday per CTS 2. iCM (EF 20-25%) -will eventually start GDMT as BP tolerates. All meds on hold for now due to low BP 3. pAF RVR -remains in sinus -will need to consider further AC after CABG 4. HTN -meds on hold for low BP as above Thank you for allowing us to participate in the care of this patient. Please call with any questions or concerns. Dang Soliman MD Interventional Cardiology [facility] ON PICTURE OPERATOR * Reji Dykes DO - 09/15/2024 1:00 PM MOTION PICTURE OPERATOR Images from the original note were not included. [facility] Cardiothoracic [facility] V[facility] Surgery- [address], [address] [place] [address] Dept: [phone] Patient: Ricardo Hanson Date of : 1965 Gender: male Daily Progress Note Subjective No acute events overnight No chest pain or shortness of breath Objective Last Recorded Vitals Blood pressure 130/87, pulse 84, temperature 36.9 ?C (98.4 ?F), temperature source Temporal, resp. rate 19, height 1.854 m (6' 1"), weight 90.1 kg (198 lb 10.2 oz), SpO2 98%. alert, cooperative, and no distress unlabored breathing Medications Current Outpatient Medications Medication Instructions amLODIPine (Norvasc) 10 MG tablet 1 tablet, Daily atorvastatin (LIPITOR) 20 mg, Daily levothyroxine (Unithroid) 50 MCG tablet Daily before breakfast losartan-hydroCHLOROthiazide (Hyzaar) 100-12.5 MG tablet 1 tablet, Daily [START ON 09/16/2024] acetaminophen, 1,000 mg, Oral, Once aspirin EC, 81 mg, Oral, Daily Or aspirin, 300 mg, Rectal, Daily atorvastatin, 80 mg, Oral, Nightly docusate sodium, 100 mg, Oral, BID fluticasone, 2 spray, Each Nostril, Daily [START ON 09/16/2024] gabapentin, 300 mg, Oral, Once heparin, 4,000 Units, Intravenous, Once metoprolol tartrate, 12.5 mg, Oral, q12h CHAPIN sodium chloride, 10 mL, Intravenous, q12h sodium chloride, 10 mL, Intravenous, q12h dexmedeTOMIDine, 0.2-1.5 mcg/kg/hr EPINEPHrine, 1-35 mcg/min heparin, 0.1-40 Units/kg/hr, Last Rate: 17.1 Units/kg/hr (09/15/24 0730) insulin regular, 0.01 Units/hr norepinephrine, 5-70 mcg/min phenylephrine, 35-350 mcg/min PRN medications: acetaminophen, calcium gluconate, calcium gluconate, dextrose, dextrose, diphenhydrAMINE, glucagon, heparin, heparin, magnesium oxide, magnesium sulfate, magnesium sulfate, magnesium sulfate, naloxone, nitroglycerin, ondansetron, potassium & sodium phosphates, potassium chloride, potassium chloride, potassium chloride, Potassium chloride, potassium phosphate, potassium phosphate, sennosides, sodium chloride, sodium chloride, sodium chloride, sodium chloride, sodium phosphate, sodium phosphate VTE Prophylaxis VTE prophyllaxis: heparin - 1000 units/mL, 1000 units/mL, 1000 units/mL, 50 units/mL Labs Pertinent Labs :Lab Results Component Value Date WBC 6.20 09/15/2024 Hgb 13.8 09/15/2024 Hct 38.4 09/15/2024 Plt Count 177 09/15/2024 Lab ResultsComponent Value Date Sodium Lvl 140 09/15/2024 Potassium Lvl 4.2 09/15/2024 Chloride Lvl 109 (H) 09/15/2024 CO2 Lvl 27.1 09/15/2024 BUN 9 09/15/2024 Creatinine Lvl 0.89 09/15/2024 Glucose Lvl 111 (H) 09/15/2024 POC Glu 102 (H) 09/15/2024 Lab ResultsComponent Value Date Calcium Lvl 8.7 09/15/2024 Magnesium 1.98 09/13/2024 Lab ResultsComponent Value Date AST 27 09/14/2024 ALT 24 09/14/2024 Alkaline Phosphatase 57 09/14/2024 Radiology I have reviewed the lmaging from the last 24 hrs Cardiac catheterizationASSESSMENT: 1. Non-ST elevation myocardial infarction 2. Coronary artery disease. A 50% distal left main stenosis. A 99% ostial/proximal LAD stenosis, a 100% chronic total occlusion of the LAD being filled by left-left collaterals feeding a diagonal branch that fills the LAD antegrade as well as right-left collaterals from the RCA system. A 900% stenosis in the proximal circumflex prior to a bifid obtuse marginal system with 90% disease/stenosis in the diminutive AV circumflex system. A 100% chronic total occlusion of the mid RCA which fills via bridging collaterals and also provides collateral filling to the LAD. 3. Mildly elevated LVEDP of 18 mmHg. PLAN/RECOMMENDATIONS:- Routine post cardiac catheterization care - Transferred to [facility] for consideration of CABG - Continue medical management including aspirin, high intensity statin, and beta-janeth. Will eventually add a P2Y12 inhibitor. Additional therapy depending on results of echocardiogram - Echocardiogram - Cardiac rehabilitation Assessment and Plan Assessment & PlanNSTEMI (non-ST elevated myocardial infarction) ([facility]/HCC) ([facility]) HTN (hypertension) HLD (hyperlipidemia) Coronary artery disease involving elim ira coronary artery of elim ira heart with unstable angina pectoris ([facility]) Paroxysmal atrial fibrillation ([facility]) ([facility]) Acute systolic congestive heart failure ([facility]) ([facility])NYHA Class II STS CALCULATED RISK SCORES: Will plan for coronary artery bypass and left atrial appendage ligationtomorrow N.p.o. after midnight Type and cross Obtain consent Discussed procedure including risks and benefits of surgery at length with patient. Discussed that we will attempt warm bleeding heart three-vessel coronary artery bypass because of his low ejection fraction. Discussed possibility of requiring mechanical circulatory support. Patient understands the risk of surgery and agrees to proceed Reji Dykes DO ON PICTURE OPERATOR * Heidy Quiñones MD - 09/15/2024 10:25 AM MOTION PICTURE OPERATOR Images from the original note were not included. [facility] ([facility]) Integrated Hospital Medicine Program Progress Note Patient:Ricardo Hanson Consultants: ConsultsBirth Date:1965 Admission Date:09/10/2024 Attending:Reji Dykes DO LOS: 5days CODE Status: Full Code Subjective Patient seen and examined.Slightly anxious about the upcoming procedure but trying to remain relaxed. REVIEW OF SYSTEMS:Complete 14 point review of system was assessed and is negative except for as mentioned above. Current Medications: Current Facility-Administered Medications:acetaminophen (Tylenol) tablet 650 mg, 650 mg, Oral, q6h PRN, Tonja Epps NP, 650 mg at 09/10/24 2336 aspirin EC EC tablet 81 mg, 81 mg, Oral, Daily, 81 mg at 09/15/24 0822 OR aspirin suppository 300 mg, 300 mg, Rectal, Daily, Wyatt Mccarthy MD atorvastatin (Lipitor) tablet 80 mg, 80 mg, Oral, Nightly, Dang Soliman MD, 80 mg at 09/14/24 2031 calcium gluconate 3 g in sodium chloride 0.9 % 150 mL IVPB, 3 g, Intravenous, PRN, Heidy Quiñones MD calcium gluconate in NaCl 100mL IVPB 2 g, 2 g, Intravenous, PRN, Heidy Quiñones MD dextrose 10 % infusion 125 mL, 125 mL, Intravenous, PRN, Heidy Quiñones MD dextrose 10 % infusion 250 mL, 250 mL, Intravenous, PRN, Heidy Quiñones MD diphenhydrAMINE (BENADryl) liquid 12.5 mg, 12.5 mg, Oral, q6h PRN, Heidy Quiñones MD docusate sodium (Colace) capsule 100 mg, 100 mg, Oral, BID, Heidy Quiñones MD, 100 mg at 09/14/24 1742 fluticasone (Flonase) nasal spray 2 spray, 2 spray, Each Nostril, Daily, Ayana Hargrove MD, 2 spray at 09/11/24 1043 glucagon injection 1 mg, 1 mg, Intramuscular, PRN, Heidy Quiñones MD heparin 1000 units/mL injection 1,800 Units, 20 Units/kg, Intravenous, PRN, Wyatt Mccarthy MD, 1,800 Units at 09/11/24 1134 heparin 1000 units/mL injection 3,600 Units, 40 Units/kg, Intravenous, PRN, Wyatt Mccarthy MD, 3,600 Units at 09/13/24 0253 heparin 1000 units/mL injection 4,000 Units, 4,000 Units, Intravenous, Once, Wyatt Mccarthy MD heparin 50 units/mL in sodium chloride 0.45 %, 0.1-40 Units/kg/hr, Intravenous, Continuous, Wyatt Mccarthy MD, Last Rate: 30.8 mL/hr at 09/15/24 0730, 17.1 Units/kg/hr at 09/15/24 0730 magnesium oxide (Mag-Ox) tablet 800 mg, 800 mg, Oral, PRN, Heidy Quiñones MD magnesium sulfate in D5W IVPB 1 g, 1 g, Intravenous, PRN, Heidy Quiñones MD magnesium sulfate IVPB 2 g, 2 g, Intravenous, PRN, Heidy Quiñones MD magnesium sulfate IVPB 4 g, 4 g, Intravenous, PRN, Heidy Quiñones MD naloxone (Narcan) injection 0.04 mg, 0.04 mg, Intravenous, PRN, Heidy Quiñones MD nitroglycerin (Nitrostat) SL tablet 0.4 mg, 0.4 mg, Sublingual, q5 min PRN, Wyatt Mccarthy MD ondansetron (Zofran) injection 4 mg, 4 mg, Intravenous, q8h PRN, Heidy Quiñones MD potassium & sodium phosphates (Phos-NaK) 280-160-250 MG packet 2 packet, 2 packet, Oral, PRN, Heidy Quiñones MD potassium chloride CR (Klor-Con M20) ER tablet 20 mEq, 20 mEq, Oral, PRN, Heidy Quiñones MD potassium chloride CR (Klor-Con M20) ER tablet 40 mEq, 40 mEq, Oral, PRN, Heidy Quiñones MD, 40 mEq at 09/12/24 1732 potassium chloride IVPB 10 mEq, 10 mEq, Intravenous, PRN, Heidy Quiñones MD Potassium chloride solution 20 mEq, 20 mEq, Nasogastric, PRN, Heidy Quiñones MD potassium phosphates 15 mmol in sodium chloride 0.9 % 100 mL infusion, 15 mmol, Intravenous, PRN, Heidy Quiñones MD Potassium Phosphates 30 mmol in sodium chloride 0.9 % 250 mL infusion, 30 mmol, Intravenous, PRN, Heidy Quiñones MD sennosides (Senokot) tablet 17.2 mg, 2 tablet, Oral, Nightly PRN, Heidy Quiñones MD sodium chloride (NS) 0.9 % flush 10 mL, 10 mL, Intravenous, q12h, Wyatt Mccarthy MD, 10 mL at 09/14/24 1742 sodium chloride (NS) 0.9 % flush 10 mL, 10 mL, Intravenous, PRN, Wyatt Mccarthy MD sodium chloride (NS) 0.9 % flush 10 mL, 10 mL, Intravenous, q12h, Heidy Quiñones MD, 10 mL at 09/15/24 0532 sodium chloride (NS) 0.9 % flush 10 mL, 10 mL, Intravenous, PRN, Heidy Quiñones MD sodium chloride 0.9 % infusion 250 mL, 250 mL, Intravenous, PRN, Wyatt Mccarthy MD sodium phosphates 15 mmol in dextrose 5 % 100 mL IVPB, 15 mmol, Intravenous, PRN, Heidy Quiñones MD sodium phosphates 30 mmol in dextrose 5 % 100 mL IVPB, 30 mmol, Intravenous, PRN, Heidy Quiñones MD Physical Exam: PHYSICAL EXAMINATION: Visit VitalsBP 130/87 Pulse 84 Temp 36.9 ?C (98.4 ?F) (Temporal) Resp 19 Ht 1.854 m (6' 1") Wt 90.1 kg (198 lb 10.2 oz) SpO2 98% BMI 26.21 kg/m? Smoking Status Never BSA 2.15 m? Physical Exam: Constitutional: Appearance: He is normal weight. HENT: Head: Normocephalic and atraumatic. Mouth/Throat: Mouth: Mucous membranes are moist. Pharynx: Oropharynx is clear. Eyes: Extraocular Movements: Extraocular movements intact. Conjunctiva/sclera: Conjunctivae normal. Cardiovascular: Rate and Rhythm: Normal rate. Pulses: Normal pulses. Pulmonary: Effort: Pulmonary effort is normal. Breath sounds: Normal breath sounds. Abdominal: General: Abdomen is flat. Palpations: Abdomen is soft. Musculoskeletal: General: Normal range of motion. Skin: General: Skin is warm and dry. Neurological: General: No focal deficit present. Mental Status: He is alert and oriented to person, place, and time. Psychiatric: Mood and Affect: Mood normal. Behavior: Behavior normal. Labs & Imaging: LABORATORY DATA: Pertinent Labs :Lab Results Component Value Date WBC 6.20 09/15/2024 Hgb 13.8 09/15/2024 Hct 38.4 09/15/2024 Plt Count 177 09/15/2024 Lab ResultsComponent Value Date Sodium Lvl 140 09/15/2024 Potassium Lvl 4.2 09/15/2024 Chloride Lvl 109 (H) 09/15/2024 CO2 Lvl 27.1 09/15/2024 BUN 9 09/15/2024 Creatinine Lvl 0.89 09/15/2024 Glucose Lvl 111 (H) 09/15/2024 POC Glu 102 (H) 09/15/2024 RADIOLOGY DATA: Cardiac catheterization ASSESSMENT: 1. Non-ST elevation myocardial infarction 2. Coronary artery disease. A 50% distal left main stenosis. A 99% ostial/proximal LAD stenosis, a 100% chronic total occlusion of the LAD being filled by left-left collaterals feeding a diagonal branch that fills the LAD antegrade as well as right-left collaterals from the RCA system. A 900% stenosis in the proximal circumflex prior to a bifid obtuse marginal system with 90% disease/stenosis in the diminutive AV circumflex system. A 100% chronic total occlusion of the mid RCA which fills via bridging collaterals and also provides collateral filling to the LAD. 3. Mildly elevated LVEDP of 18 mmHg. PLAN/RECOMMENDATIONS:- Routine post cardiac catheterization care - Transferred to [facility] for consideration of CABG - Continue medical management including aspirin, high intensity statin, and beta-janeth. Will eventually add a P2Y12 inhibitor. Additional therapy depending on results of echocardiogram - Echocardiogram - Cardiac rehabilitation Glucose LvlDate Value Ref Range Status 09/15/2024 111 (H) 70 - 99 mg/dL Final Comment: Adult reference range values reflect the clinical guidelines of the [place] [employer]. Assessment & Plan: 59-year-old male with past medical history significant for hypertension, hypothyroid and hyperlipidemia presented to the emergency room with complaint of longstanding history of intermittent chest pain. Patient underwent cardiac catheterization where he was found to have multivessel CAD. Patient was transferred to our facility for cardiothoracic surgery evaluation. Assessment & PlanCoronary artery disease involving elim ira coronary artery of elim ira heart with unstable angina pectoris (HCC) Plan for CABG 09/16 Continue ASA, heparin gtt, statin CT Surgery primary, perioperative optimazation in CVICU NSTEMI (non-ST elevated myocardial infarction) (CMS/HCC) (HCC) HTN (hypertension)Blood pressures are stable Defer antihypertensives to Cardiology team Consider PRN medications if systolics only if >180 Paroxysmal atrial fibrillation ([facility]) ([facility])Patient is currently rate controlled and NSR Patient currently on heparin gtt, will need anticoagulation on discharge Acute systolic congestive heart failure ([facility]) ([facility])We will continue strict I's and O's, 2 L fluid restriction, daily weights We will continue aspirin, statin Can restart GDMT as BP tolerates Cardiology on board HLD (hyperlipidemia) Continue statin DVT prophylaxis: heparin - 1000 units/mL, 1000 units/mL, 1000 units/mL, 50 units/mL Current Diet: Adult Diet Heart Healthy Disposition Anticipated: Depending on clinical improvement, likely 3+ addl midnights. Reason for continue inpatient management: CABG 09/16 Heidy Quiñones MDspital Medicine This report has been partially created through the use of voice recognition/text compilation software. Typographical and content errors may occur with this process. While efforts are made to detect and correct such errors, in some cases errors will persist. For this reason, wording in this document should be considered in the proper context and not strictly verbatim. ON PICTURE OPERATOR * Reji Dykes DO - 09/14/2024 1:28 PM MOTION PICTURE OPERATOR [facility]- [address], [address] [place] [address] Dept: [phone] Patient: Ricardo Hanson Date of : 1965 Gender: male Daily Progress Note Subjective No acute events overnight No chest pain or shortness of breath Objective Last Recorded Vitals Blood pressure 115/66, pulse 68, temperature 36.9 ?C (98.4 ?F), resp. rate 16, height 1.854 m (6' 1"), weight 90.1 kg (198 lb 10.2 oz), SpO2 97%. alert, cooperative, and no distress unlabored breathing Medications Current Outpatient Medications Medication Instructions amLODIPine (Norvasc) 10 MG tablet 1 tablet, Daily atorvastatin (LIPITOR) 20 mg, Daily levothyroxine (Unithroid) 50 MCG tablet Daily before breakfast losartan-hydroCHLOROthiazide (Hyzaar) 100-12.5 MG tablet 1 tablet, Daily aspirin EC, 81 mg, Oral, Daily Or aspirin, 300 mg, Rectal, Daily atorvastatin, 80 mg, Oral, Nightly docusate sodium, 100 mg, Oral, BID fluticasone, 2 spray, Each Nostril, Daily heparin, 4,000 Units, Intravenous, Once sodium chloride, 10 mL, Intravenous, q12h sodium chloride, 10 mL, Intravenous, q12h heparin, 0.1-40 Units/kg/hr, Last Rate: 20.1 Units/kg/hr (09/14/24 1206) PRN medications: acetaminophen, calcium gluconate, calcium gluconate, dextrose, dextrose, diphenhydrAMINE, glucagon, heparin, heparin, magnesium oxide, magnesium sulfate, magnesium sulfate, magnesium sulfate, naloxone, nitroglycerin, ondansetron, potassium & sodium phosphates, potassium chloride, potassium chloride, potassium chloride, Potassium chloride, potassium phosphate, potassium phosphate, sennosides, sodium chloride, sodium chloride, sodium chloride, sodium phosphate, sodium phosphate VTE Prophylaxis VTE prophyllaxis: heparin - 1000 units/mL, 1000 units/mL, 1000 units/mL, 50 units/mL Labs Pertinent Labs :Lab Results Component Value Date WBC 6.13 09/14/2024 Hgb 14.1 09/14/2024 Hct 39.6 09/14/2024 Plt Count 178 09/14/2024 Lab ResultsComponent Value Date Sodium Lvl 139 09/14/2024 Potassium Lvl 3.9 09/14/2024 Chloride Lvl 108 (H) 09/14/2024 CO2 Lvl 24.7 09/14/2024 BUN 11 09/14/2024 Creatinine Lvl 0.94 09/14/2024 Glucose Lvl 114 (H) 09/14/2024 Radiology I have reviewed the lmaging from the last 24 hrs Cardiac catheterizationASSESSMENT: 1. Non-ST elevation myocardial infarction 2. Coronary artery disease. A 50% distal left main stenosis. A 99% ostial/proximal LAD stenosis, a 100% chronic total occlusion of the LAD being filled by left-left collaterals feeding a diagonal branch that fills the LAD antegrade as well as right-left collaterals from the RCA system. A 900% stenosis in the proximal circumflex prior to a bifid obtuse marginal system with 90% disease/stenosis in the diminutive AV circumflex system. A 100% chronic total occlusion of the mid RCA which fills via bridging collaterals and also provides collateral filling to the LAD. 3. Mildly elevated LVEDP of 18 mmHg. PLAN/RECOMMENDATIONS:- Routine post cardiac catheterization care - Transferred to [facility] for consideration of CABG - Continue medical management including aspirin, high intensity statin, and beta-janeth. Will eventually add a P2Y12 inhibitor. Additional therapy depending on results of echocardiogram - Echocardiogram - Cardiac rehabilitation Assessment and Plan Assessment & PlanNSTEMI (non-ST elevated myocardial infarction) (CMS/HCC) (HCC) HTN (hypertension) HLD (hyperlipidemia) Coronary artery disease involving elim ira coronary artery of elim ira heart with unstable angina pectoris (HCC) Paroxysmal atrial fibrillation (CMS/HCC) (HCC) Acute systolic congestive heart failure (CMS/HCC) (HCC) Viability stress test reviewed. Patient appears to have viable myocardium inthe territory of the LAD as well as the lateral wall. Given these findings, we will plan to proceed with high risk coronary artery bypass on Sunday Transfer to CVICU for preoperative management Continue aspirin and heparin drip Continue to hold Plavix Reji Dykes DO ON PICTURE OPERATOR * Dang Soliman MD - 09/14/2024 11:27 AM MOTION PICTURE OPERATOR CARDIOLOGY PROGRESS NOTE Subjective: No complaints. Physical Exam: 09/13/2024 7:32 AM 09/13/2024 4:23 PM 09/13/2024 4:24 PM 09/13/2024 8:47 PM 09/14/2024 3:47 AM 09/14/2024 7:14 AM 09/14/2024 7:15 AM Vitals Systolic 105 102 103 105 115 Diastolic 69 59 56 58 66 Heart Rate 74 67 74 61 68 Temp 36.8 ?C (98.2 ?F) 36.9 ?C (98.5 ?F) 36.8 ?C (98.3 ?F) 36.7 ?C (98.1 ?F) 36.9 ?C (98.4 ?F) Resp 16 16 16 16 General Appearance: No acute distress Lungs: CTA bilaterally, no wheezes/rales/rhonchi, and good air entry Heart: Regular rate and rhythm Abdomen: Soft nontender Extremities: No c/c/e Neurologic: No focal deficits aspirin EC, 81 mg, Oral, Daily Or aspirin, 300 mg, Rectal, Daily atorvastatin, 80 mg, Oral, Nightly docusate sodium, 100 mg, Oral, BID fluticasone, 2 spray, Each Nostril, Daily heparin, 4,000 Units, Intravenous, Once sodium chloride, 10 mL, Intravenous, q12h sodium chloride, 10 mL, Intravenous, q12h Assessment and Plan: Ricardo Hanson is a 59 y.o. year old male patient with a h/o HTN, HLD who presented to the [facility] ER with chest pain, found to have pAF RVR and NSTEMI with hsTrop 18K. 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 Echo showed EF 20-25%. He was transferred to [facility] for CABG evaluation. Severe MV CAD -cardiac cath 09/10/2024 at [facility] showed proximal LAD [employer] with right to left & left to left collaterals, severe proximal CX stenosis, mid RCA [employer] with bridging collaterals -echo showed EF 20-25% -nuclear stress test shows reversibility/ischemia in the LAD and RCA territories -continue ASA, hep gtt, statin -tentative plan for CABG on Sunday per CTS 2. iCM (EF 20-25%) -will eventually start GDMT as BP tolerates. All meds on hold for now due to low BP 3. pAF RVR -remains in sinus -will need to consider further AC after CABG 4. HTN -meds on hold for low BP as above Thank you for allowing us to participate in the care of this patient. Please call with any questions or concerns. Dang Soliman MDInterventional Cardiology [facility] ON PICTURE OPERATOR * Heidy Quiñones MD - 09/14/2024 10:59 AM MOTION PICTURE OPERATOR Images from the original note were not included. [facility] ([facility]) Integrated [facility] Medicine Program Progress Note Patient:Ricardo Hanson Consultants: ConsultsBirth Date:1965 Admission Date:09/10/2024 Attending:Heidy Quiñones MD LOS: 4days CODE Status: Full Code Subjective Patient seen and examined.Moving to CVICU REVIEW OF SYSTEMS:Complete 14 point review of system was assessed and is negative except for as mentioned above. Current Medications: Current Facility-Administered Medications:acetaminophen (Tylenol) tablet 650 mg, 650 mg, Oral, q6h PRN, Tonja Epps NP, 650 mg at 09/10/24 2336 aspirin EC EC tablet 81 mg, 81 mg, Oral, Daily, 81 mg at 09/14/24 0807 OR aspirin suppository 300 mg, 300 mg, Rectal, Daily, Wyatt Mccarthy MD atorvastatin (Lipitor) tablet 80 mg, 80 mg, Oral, Nightly, Dang Soliman MD, 80 mg at 09/13/24 2048 calcium gluconate 3 g in sodium chloride 0.9 % 150 mL IVPB, 3 g, Intravenous, PRN, Heidy Quiñones MD calcium gluconate in NaCl 100mL IVPB 2 g, 2 g, Intravenous, PRN, Heidy Quiñones MD dextrose 10 % infusion 125 mL, 125 mL, Intravenous, PRN, Heidy Quiñones MD dextrose 10 % infusion 250 mL, 250 mL, Intravenous, PRN, Heidy Quiñones MD diphenhydrAMINE (BENADryl) liquid 12.5 mg, 12.5 mg, Oral, q6h PRN, Heidy Quiñones MD docusate sodium (Colace) capsule 100 mg, 100 mg, Oral, BID, Heidy Quiñones MD, 100 mg at 09/14/24 0807 fluticasone (Flonase) nasal spray 2 spray, 2 spray, Each Nostril, Daily, Ayana Hargrove MD, 2 spray at 09/11/24 1043 glucagon injection 1 mg, 1 mg, Intramuscular, PRN, Heidy Quiñones MD heparin 1000 units/mL injection 1,800 Units, 20 Units/kg, Intravenous, PRN, Wyatt Mccarthy MD, 1,800 Units at 09/11/24 1134 heparin 1000 units/mL injection 3,600 Units, 40 Units/kg, Intravenous, PRN, Wyatt Mccarthy MD, 3,600 Units at 09/13/24 0253 heparin 1000 units/mL injection 4,000 Units, 4,000 Units, Intravenous, Once, Wyatt Mccarthy MD heparin 50 units/mL in sodium chloride 0.45 %, 0.1-40 Units/kg/hr, Intravenous, Continuous, Wyatt Mccarthy MD, Stopped at 09/14/24 1052 magnesium oxide (Mag-Ox) tablet 800 mg, 800 mg, Oral, PRN, Heidy Quiñones MD magnesium sulfate in D5W IVPB 1 g, 1 g, Intravenous, PRN, Heidy Quiñones MD magnesium sulfate IVPB 2 g, 2 g, Intravenous, PRN, Heidy Quiñones MD magnesium sulfate IVPB 4 g, 4 g, Intravenous, PRN, Heidy Quiñones MD naloxone (Narcan) injection 0.04 mg, 0.04 mg, Intravenous, PRN, Heidy Quiñones MD nitroglycerin (Nitrostat) SL tablet 0.4 mg, 0.4 mg, Sublingual, q5 min PRN, Wyatt Mccarthy MD ondansetron (Zofran) injection 4 mg, 4 mg, Intravenous, q8h PRN, Heidy Quiñones MD potassium & sodium phosphates (Phos-NaK) 280-160-250 MG packet 2 packet, 2 packet, Oral, PRN, Heidy Quiñones MD potassium chloride CR (Klor-Con M20) ER tablet 20 mEq, 20 mEq, Oral, PRN, Heidy Quiñones MD potassium chloride CR (Klor-Con M20) ER tablet 40 mEq, 40 mEq, Oral, PRN, Heidy Quiñones MD, 40 mEq at 09/12/24 1732 potassium chloride IVPB 10 mEq, 10 mEq, Intravenous, PRN, Heidy Quiñones MD Potassium chloride solution 20 mEq, 20 mEq, Nasogastric, PRN, Heidy Quiñones MD potassium phosphates 15 mmol in sodium chloride 0.9 % 100 mL infusion, 15 mmol, Intravenous, PRN, Heidy Quiñones MD Potassium Phosphates 30 mmol in sodium chloride 0.9 % 250 mL infusion, 30 mmol, Intravenous, PRN, Heidy Quiñones MD sennosides (Senokot) tablet 17.2 mg, 2 tablet, Oral, Nightly PRN, Heidy Quiñones MD sodium chloride (NS) 0.9 % flush 10 mL, 10 mL, Intravenous, q12h, Wyatt Mccarthy MD, 10 mL at 09/14/24 0511 sodium chloride (NS) 0.9 % flush 10 mL, 10 mL, Intravenous, PRN, Wyatt Mccarthy MD sodium chloride (NS) 0.9 % flush 10 mL, 10 mL, Intravenous, q12h, Heidy Quiñones MD, 10 mL at 09/14/24 0331 sodium chloride (NS) 0.9 % flush 10 mL, 10 mL, Intravenous, PRN, Heidy Quiñones MD sodium chloride 0.9 % infusion 250 mL, 250 mL, Intravenous, PRN, Wyatt Mccarthy MD sodium phosphates 15 mmol in dextrose 5 % 100 mL IVPB, 15 mmol, Intravenous, PRN, Heidy Quiñones MD sodium phosphates 30 mmol in dextrose 5 % 100 mL IVPB, 30 mmol, Intravenous, PRN, Heidy Quiñones MD Physical Exam: PHYSICAL EXAMINATION: Visit VitalsBP 115/66 Pulse 68 Temp 36.9 ?C (98.4 ?F) Resp 16 Ht 1.854 m (6' 1") Wt 90.1 kg (198 lb 10.2 oz) SpO2 97% BMI 26.21 kg/m? Smoking Status Never BSA 2.15 m? Physical Exam: Constitutional: Appearance: He is normal weight. HENT: Head: Normocephalic and atraumatic. Mouth/Throat: Mouth: Mucous membranes are moist. Pharynx: Oropharynx is clear. Eyes: Extraocular Movements: Extraocular movements intact. Conjunctiva/sclera: Conjunctivae normal. Cardiovascular: Rate and Rhythm: Normal rate. Pulses: Normal pulses. Pulmonary: Effort: Pulmonary effort is normal. Breath sounds: Normal breath sounds. Abdominal: General: Abdomen is flat. Palpations: Abdomen is soft. Musculoskeletal: General: Normal range of motion. Skin: General: Skin is warm and dry. Neurological: General: No focal deficit present. Mental Status: He is alert and oriented to person, place, and time. Psychiatric: Mood and Affect: Mood normal. Behavior: Behavior normal. Labs & Imaging: LABORATORY DATA: Pertinent Labs :Lab Results Component Value Date WBC 6.13 09/14/2024 Hgb 14.1 09/14/2024 Hct 39.6 09/14/2024 Plt Count 178 09/14/2024 Lab ResultsComponent Value Date Sodium Lvl 139 09/14/2024 Potassium Lvl 3.9 09/14/2024 Chloride Lvl 108 (H) 09/14/2024 CO2 Lvl 24.7 09/14/2024 BUN 11 09/14/2024 Creatinine Lvl 0.94 09/14/2024 Glucose Lvl 114 (H) 09/14/2024 RADIOLOGY DATA: Cardiac catheterization ASSESSMENT: 1. Non-ST elevation myocardial infarction 2. Coronary artery disease. A 50% distal left main stenosis. A 99% ostial/proximal LAD stenosis, a 100% chronic total occlusion of the LAD being filled by left-left collaterals feeding a diagonal branch that fills the LAD antegrade as well as right-left collaterals from the RCA system. A 900% stenosis in the proximal circumflex prior to a bifid obtuse marginal system with 90% disease/stenosis in the diminutive AV circumflex system. A 100% chronic total occlusion of the mid RCA which fills via bridging collaterals and also provides collateral filling to the LAD. 3. Mildly elevated LVEDP of 18 mmHg. PLAN/RECOMMENDATIONS:- Routine post cardiac catheterization care - Transferred to [facility] for consideration of CABG - Continue medical management including aspirin, high intensity statin, and beta-janeth. Will eventually add a P2Y12 inhibitor. Additional therapy depending on results of echocardiogram - Echocardiogram - Cardiac rehabilitation Glucose LvlDate Value Ref Range Status 09/14/2024 114 (H) 70 - 99 mg/dL Final Comment: Adult reference range values reflect the clinical guidelines of the [place] [employer]. Assessment & Plan: 59-year-old male with past medical history significant for hypertension, hypothyroid and hyperlipidemia presented to the emergency room with complaint of longstanding history of intermittent chest pain. Patient underwent cardiac catheterization where he was found to have multivessel CAD. Patient was transferred to our facility for cardiothoracic surgery evaluation. Assessment & PlanCoronary artery disease involving elim ira coronary artery of elim ira heart with unstable angina pectoris (HCC) CT Surgery on board, pending NST to determine if CABG is feasible, unable to do viability scan per Cardiology Per Nail Sticker, "nuclear stress test shows reversibility/ischemia in the LAD and RCA territories; discussed with CT surgery" Continue heparin gtt for NSTEMI and AF Continue ASA, hold off on plavix given possibility for CABG evaluation CABG pending timing per CTS NSTEMI (non-ST elevated myocardial infarction) (CMS/[facility]ER[facility]) ([facility]) HTN (hypertension)Blood pressures are low at this time Hold antihypertensives Consider PRN medications if systolics only if >180 Paroxysmal atrial fibrillation ([facility]) ([facility])Patient is currently rate controlled Patient currently on heparin gtt but will need anticoagulation on discharge Acute systolic congestive heart failure ([facility]) ([facility])We will continue strict I's and O's, 2 L fluid restriction, daily weights We will continue aspirin, statin Can restart GDMT as BP tolerate Cardiology on board HLD (hyperlipidemia) Continue statin DVT prophylaxis: heparin - 1000 units/mL, 1000 units/mL, 1000 units/mL, 50 units/mL Current Diet: Adult Diet Heart Healthy Disposition Anticipated: Depending on clinical improvement, likely 3+ addl midnights. Plan for discharge to home when medically ready. Reason for continue inpatient management: Heidy Quiñones MDspital Medicine This report has been partially created through the use of voice recognition/text compilation software. Typographical and content errors may occur with this process. While efforts are made to detect and correct such errors, in some cases errors will persist. For this reason, wording in this document should be considered in the proper context and not strictly verbatim. ON PICTURE OPERATOR * Heidy Quiñones MD - 09/13/2024 11:31 AM MOTION PICTURE OPERATOR Images from the original note were not included. [facility] ([facility]) [facility] Progress Note Patient:Ricardo Hanson Consultants: ConsultsBirth Date:1965 Admission Date:09/10/2024 Attending:Heidy Quiñones MD LOS: 3days CODE Status: Full Code Subjective Patient seen and examined.States he is feeling ok, notes he spoke with [facility] this am. No complaints at this time. REVIEW OF SYSTEMS:Complete 14 point review of system was assessed and is negative except for as mentioned above. Current Medications: Current Facility-Administered Medications:acetaminophen (Tylenol) tablet 650 mg, 650 mg, Oral, q6h PRN, Tonja Epps, AUDIOVISUAL PRODUCTION SPECIALIST, 650 mg at 09/10/24 2336 aspirin EC EC tablet 81 mg, 81 mg, Oral, Daily, 81 mg at 09/13/24 0944 OR aspirin suppository 300 mg, 300 mg, Rectal, Daily, Wyatt Mccarthy MD atorvastatin (Lipitor) tablet 80 mg, 80 mg, Oral, Nightly, Dang Soliman MD calcium gluconate 3 g in sodium chloride 0.9 % 150 mL IVPB, 3 g, Intravenous, PRN, Heidy Quiñones MD calcium gluconate in NaCl 100mL IVPB 2 g, 2 g, Intravenous, PRN, Heidy Quiñones MD dextrose 10 % infusion 125 mL, 125 mL, Intravenous, PRN, Heidy Quiñones MD dextrose 10 % infusion 250 mL, 250 mL, Intravenous, PRN, Heidy Quiñones MD diphenhydrAMINE (BENADryl) liquid 12.5 mg, 12.5 mg, Oral, q6h PRN, Heidy Quiñones MD docusate sodium (Colace) capsule 100 mg, 100 mg, Oral, BID, Heidy Quiñones MD fluticasone (Flonase) nasal spray 2 spray, 2 spray, Each Nostril, Daily, Ayana Hargrove MD, 2 spray at 09/11/24 1043 glucagon injection 1 mg, 1 mg, Intramuscular, PRN, Heidy Quiñones MD heparin 1000 units/mL injection 1,800 Units, 20 Units/kg, Intravenous, PRN, Wyatt Mccarthy MD, 1,800 Units at 09/11/24 1134 heparin 1000 units/mL injection 3,600 Units, 40 Units/kg, Intravenous, PRN, Wyatt Mccarthy MD, 3,600 Units at 09/13/24 0253 heparin 1000 units/mL injection 4,000 Units, 4,000 Units, Intravenous, Once, Wyatt Mccarthy MD heparin 50 units/mL in sodium chloride 0.45 %, 0.1-40 Units/kg/hr, Intravenous, Continuous, Wyatt Mccarthy MD, Last Rate: 48.8 mL/hr at 09/13/24 0248, 27.1 Units/kg/hr at 09/13/24 0248 magnesium oxide (Mag-Ox) tablet 800 mg, 800 mg, Oral, PRN, Heidy Quiñones MD magnesium sulfate in D5W IVPB 1 g, 1 g, Intravenous, PRN, Heidy Quiñones MD magnesium sulfate IVPB 2 g, 2 g, Intravenous, PRN, Heidy Quiñones MD magnesium sulfate IVPB 4 g, 4 g, Intravenous, PRN, Heidy Quiñones MD naloxone (Narcan) injection 0.04 mg, 0.04 mg, Intravenous, PRN, Heidy Quiñones MD nitroglycerin (Nitrostat) SL tablet 0.4 mg, 0.4 mg, Sublingual, q5 min PRN, Wyatt Mccarthy MD ondansetron (Zofran) injection 4 mg, 4 mg, Intravenous, q8h PRN, Heidy Quiñones MD potassium & sodium phosphates (Phos-NaK) 280-160-250 MG packet 2 packet, 2 packet, Oral, PRN, Heidy Quiñones MD potassium chloride CR (Klor-Con M20) ER tablet 20 mEq, 20 mEq, Oral, PRN, Heidy Quiñones MD potassium chloride CR (Klor-Con M20) ER tablet 40 mEq, 40 mEq, Oral, PRN, Heidy Quiñones MD, 40 mEq at 09/12/24 1732 potassium chloride IVPB 10 mEq, 10 mEq, Intravenous, PRN, Heidy Quiñones MD Potassium chloride solution 20 mEq, 20 mEq, Nasogastric, PRN, Heidy Quiñones MD potassium phosphates 15 mmol in sodium chloride 0.9 % 100 mL infusion, 15 mmol, Intravenous, PRN, Heidy Quiñones MD Potassium Phosphates 30 mmol in sodium chloride 0.9 % 250 mL infusion, 30 mmol, Intravenous, PRN, Heidy Quiñones MD sennosides (Senokot) tablet 17.2 mg, 2 tablet, Oral, Nightly PRN, Heidy Quiñones MD sodium chloride (NS) 0.9 % flush 10 mL, 10 mL, Intravenous, q12h, Wyatt Mccarthy MD, 10 mL at 09/13/24 0503 sodium chloride (NS) 0.9 % flush 10 mL, 10 mL, Intravenous, PRN, Wyatt Mccarthy MD sodium chloride (NS) 0.9 % flush 10 mL, 10 mL, Intravenous, q12h, Heidy Quiñones MD, 10 mL at 09/13/24 0316 sodium chloride (NS) 0.9 % flush 10 mL, 10 mL, Intravenous, PRN, Heidy Quiñones MD sodium chloride 0.9 % infusion 250 mL, 250 mL, Intravenous, PRN, Wyatt Mccarthy MD sodium phosphates 15 mmol in dextrose 5 % 100 mL IVPB, 15 mmol, Intravenous, PRN, Heidy Quiñones MD sodium phosphates 30 mmol in dextrose 5 % 100 mL IVPB, 30 mmol, Intravenous, PRN, Heidy Quiñones MD Physical Exam: PHYSICAL EXAMINATION: Visit VitalsBP 105/69 Pulse 74 Temp 36.8 ?C (98.2 ?F) Resp 16 Ht 1.854 m (6' 1") Wt 90.1 kg (198 lb 10.2 oz) SpO2 95% BMI 26.21 kg/m? Smoking Status Never BSA 2.15 m? Physical Exam: Constitutional: Appearance: He is normal weight. HENT: Head: Normocephalic and atraumatic. Mouth/Throat: Mouth: Mucous membranes are moist. Pharynx: Oropharynx is clear. Eyes: Extraocular Movements: Extraocular movements intact. Conjunctiva/sclera: Conjunctivae normal. Cardiovascular: Rate and Rhythm: Normal rate. Pulses: Normal pulses. Pulmonary: Effort: Pulmonary effort is normal. Breath sounds: Normal breath sounds. Abdominal: General: Abdomen is flat. Palpations: Abdomen is soft. Musculoskeletal: General: Normal range of motion. Skin: General: Skin is warm and dry. Neurological: General: No focal deficit present. Mental Status: He is alert and oriented to person, place, and time. Psychiatric: Mood and Affect: Mood normal. Behavior: Behavior normal. Labs & Imaging: LABORATORY DATA: Pertinent Labs :Lab Results Component Value Date WBC 6.48 09/13/2024 Hgb 14.2 09/13/2024 Hct 39.2 09/13/2024 Plt Count 176 09/13/2024 Lab ResultsComponent Value Date Sodium Lvl 138 09/13/2024 Potassium Lvl 4.1 09/13/2024 Chloride Lvl 106 09/13/2024 CO2 Lvl 24.5 09/13/2024 BUN 13 09/13/2024 Creatinine Lvl 0.98 09/13/2024 Glucose Lvl 100 (H) 09/13/2024 RADIOLOGY DATA: Cardiac catheterization ASSESSMENT: 1. Non-ST elevation myocardial infarction 2. Coronary artery disease. A 50% distal left main stenosis. A 99% ostial/proximal LAD stenosis, a 100% chronic total occlusion of the LAD being filled by left-left collaterals feeding a diagonal branch that fills the LAD antegrade as well as right-left collaterals from the RCA system. A 900% stenosis in the proximal circumflex prior to a bifid obtuse marginal system with 90% disease/stenosis in the diminutive AV circumflex system. A 100% chronic total occlusion of the mid RCA which fills via bridging collaterals and also provides collateral filling to the LAD. 3. Mildly elevated LVEDP of 18 mmHg. PLAN/RECOMMENDATIONS:- Routine post cardiac catheterization care - Transferred to [facility] for consideration of CABG - Continue medical management including aspirin, high intensity statin, and beta-janeth. Will eventually add a P2Y12 inhibitor. Additional therapy depending on results of echocardiogram - Echocardiogram - Cardiac rehabilitation Glucose LvlDate Value Ref Range Status 09/13/2024 100 (H) 70 - 99 mg/dL Final Comment: Adult reference range values reflect the clinical guidelines of the [place] [employer]. POC GluDate Value Ref Range Status 09/12/2024 108 (H) 70 - 99 mg/dL Final Assessment & Plan: Assessment & PlanCoronary artery disease involving elim ira coronary artery of elim ira heart with unstable angina pectoris (HCC) CT Surgery on board, pending NST to determine if CABG is feasible, unable to do viability scan per Cardiology Per Nail Sticker, "nuclear stress test shows reversibility/ischemia in the LAD and RCA territories; discussed with CT surgery" Continue heparin gtt for NSTEMI and AF Continue ASA, hold off on plavix given possibility for CABG evaluation Possible CABG pending timing per CTS NSTEMI (non-ST elevated myocardial infarction) (CMS/HCC) ([facility]) HTN (hypertension)Blood pressures are low at this time Hold antihypertensives Consider PRN medications if systolics only if >180 Paroxysmal atrial fibrillation (CMS/HCC) ([facility])Patient is currently rate controlled Patient currently on heparin gtt but will need anticoagulation on discharge Acute systolic congestive heart failure (CMS/HCC) ([facility])We will continue strict I's and O's, 2 L fluid restriction, daily weights We will continue aspirin, statin HLD (hyperlipidemia)Continue statin DVT prophylaxis: heparin - 1000 units/mL, 1000 units/mL, 1000 units/mL, 50 units/mL Current Diet: Adult Diet Heart Healthy Disposition Anticipated: Depending on clinical improvement, likely 2+ addl midnights. Plan for discharge to home when medically ready. Reason for continue inpatient management: Pending CABG Heidy Quiñones MDspital Medicine This report has been partially created through the use of voice recognition/text compilation software. Typographical and content errors may occur with this process. While efforts are made to detect and correct such errors, in some cases errors will persist. For this reason, wording in this document should be considered in the proper context and not strictly verbatim. ON PICTURE OPERATOR * Dang Soliman MD - 09/13/2024 9:33 AM MOTION PICTURE OPERATOR CARDIOLOGY PROGRESS NOTE Subjective: No chest pain or SOB. Physical Exam: 09/12/2024 7:38 AM 09/12/2024 3:58 PM 09/12/2024 4:02 PM 09/12/2024 7:56 PM 09/12/2024 7:57 PM 09/13/2024 4:19 AM 09/13/2024 7:32 AM Vitals Systolic 110 100 105 105 Diastolic 53 56 59 69 Heart Rate 62 66 72 66 74 Temp 36.8 ?C (98.3 ?F) 36.9 ?C (98.4 ?F) 37.3 ?C (99.1 ?F) 37 ?C (98.6 ?F) 36.8 ?C (98.2 ?F) Resp 16 16 General Appearance: No acute distress Lungs: CTA bilaterally, no wheezes/rales/rhonchi, and good air entry Heart: Regular rate and rhythm Abdomen: Soft nontender Extremities: No c/c/e Neurologic: No focal deficits [Held by provider] amLODIPine, 10 mg, Oral, Daily aspirin EC, 81 mg, Oral, Daily Or aspirin, 300 mg, Rectal, Daily atorvastatin, 80 mg, Oral, Nightly docusate sodium, 100 mg, Oral, BID fluticasone, 2 spray, Each Nostril, Daily heparin, 4,000 Units, Intravenous, Once [Held by provider] hydroCHLOROthiazide, 12.5 mg, Oral, Daily [Held by provider] losartan, 100 mg, Oral, Daily sodium chloride, 10 mL, Intravenous, q12h sodium chloride, 10 mL, Intravenous, q12h Assessment and Plan: Ricardo Hanson is a 59 y.o. year old male patient with a h/o HTN, HLD who presented to the [facility] ER with chest pain, found to have pAF RVR and NSTEMI with hsTrop 18K. 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 Echo showed EF 20-25%. He was transferred to [facility] for CABG evaluation. Severe MV CAD -cardiac cath 09/10/2024 at [facility] showed proximal LAD SUPERVISOR [employer] EDUCATION with right to left & left to left collaterals, severe proximal CX stenosis, mid RCA SUPERVISOR AGRIC[employer] EDUCATION with bridging collaterals -echo showed EF 20-25% -nuclear stress test shows reversibility/ischemia in the LAD and RCA territories; discussed with CT surgery -continue ASA, hep gtt, stat -plan for CABG with timing per CTS 2. iCM (EF 20-25%) -will eventually start GDMT as BP tolerates. All meds on hold this morning due to low BP 3. pAF RVR -remains in sinus -will need to consider further AC after CABG 4. HTN -meds on hold for low BP as above Thank you for allowing us to participate in the care of this patient. Please call with any questions or concerns. Dang Soliman MD Interventional Cardiology [facility] ON PICTURE OPERATOR * Heidy Quiñones MD - 09/12/2024 8:48 AM MOTION PICTURE OPERATOR Images from the original note were not included. [facility] ([facility]) [facility] Medicine [facility] Progress Note Patient:Ricardo Hanson Consultants: ConsultsBirth Date:1965 Admission Date:09/10/2024 Attending:Heidy Quiñones MD LOS: 2days CODE Status: Full Code Subjective Patient seen and examined, no acute events overnight. Troponin is trending downwards. Discussed case with Nail Sticker this am, plan for stress test today REVIEW OF SYSTEMS:Complete 14 point review of system was assessed and is negative except for as mentioned above. Current Medications: Current Facility-Administered Medications:acetaminophen (Tylenol) tablet 650 mg, 650 mg, Oral, q6h PRN, Tonja Epps NP, 650 mg at 09/10/24 2336 [Held by provider] amLODIPine (Norvasc) tablet 10 mg, 10 mg, Oral, Daily, Tonja Epps NP, 10 mg at 09/10/242053 aspirin EC EC tablet 81 mg, 81 mg, Oral, Daily, 81 mg at 09/11/24 1043 OR aspirin suppository 300 mg, 300 mg, Rectal, Daily, Wyatt Mccarthy MD atorvastatin (Lipitor) tablet 20 mg, 20 mg, Oral, Daily, Tonja Epps NP, 20 mg at 09/11/24 1042 calcium gluconate 3 g in sodium chloride 0.9 % 150 mL IVPB, 3 g, Intravenous, PRN, Heidy Quiñones MD calcium gluconate in NaCl 100mL IVPB 2 g, 2 g, Intravenous, PRN, Heidy Quiñones MD dextrose 10 % infusion 125 mL, 125 mL, Intravenous, PRN, Heidy Quiñones MD dextrose 10 % infusion 250 mL, 250 mL, Intravenous, PRN, Heidy Quiñones MD diphenhydrAMINE (BENADryl) liquid 12.5 mg, 12.5 mg, Oral, q6h PRN, Heidy Quiñones MD docusate sodium (Colace) capsule 100 mg, 100 mg, Oral, BID, Heidy Quiñones MD fluticasone (Flonase) nasal spray 2 spray, 2 spray, Each Nostril, Daily, Ayana Hargrove MD, 2 spray at 09/11/24 1043 glucagon injection 1 mg, 1 mg, Intramuscular, PRN, Heidy Quiñones MD heparin 1000 units/mL injection 1,800 Units, 20 Units/kg, Intravenous, PRN, Wyatt Mccarthy MD, 1,800 Units at 09/11/24 1134 heparin 1000 units/mL injection 3,600 Units, 40 Units/kg, Intravenous, PRN, Wyatt Mccarthy MD heparin 1000 units/mL injection 4,000 Units, 4,000 Units, Intravenous, Once, Wyatt Mccarthy MD heparin 50 units/mL in sodium chloride 0.45 %, 0.1-40 Units/kg/hr, Intravenous, Continuous, Wyatt Mccarthy MD, Last Rate: 30.6 mL/hr at 09/12/24 0832, 17 Units/kg/hr at 09/12/24 08 [Held by provider] hydroCHLOROthiazide tablet 12.5 mg, 12.5 mg, Oral, Daily, Tonja Epps NP, 12.5 mg at 09/10/242055 [Held by provider] losartan (Cozaar) tablet 100 mg, 100 mg, Oral, Daily, Tonja Epps NP, 100 mg at 09/10/242055 magnesium oxide (Mag-Ox) tablet 800 mg, 800 mg, Oral, PRN, Heidy Quiñones MD magnesium sulfate in D5W IVPB 1 g, 1 g, Intravenous, PRN, Heidy Quiñones MD magnesium sulfate IVPB 2 g, 2 g, Intravenous, PRN, Heidy Quiñones MD magnesium sulfate IVPB 4 g, 4 g, Intravenous, PRN, Heidy Quiñones MD naloxone (Narcan) injection 0.04 mg, 0.04 mg, Intravenous, PRN, Heidy Quiñones MD nitroglycerin (Nitrostat) SL tablet 0.4 mg, 0.4 mg, Sublingual, q5 min PRN, Wyatt Mccarthy MD ondansetron (Zofran) injection 4 mg, 4 mg, Intravenous, q8h PRN, Heidy Quiñones MD potassium & sodium phosphates (Phos-NaK) 280-160-250 MG packet 2 packet, 2 packet, Oral, PRN, Heidy Quiñones MD potassium chloride CR (Klor-Con M20) ER tablet 20 mEq, 20 mEq, Oral, PRN, Heidy Quiñones MD potassium chloride CR (Klor-Con M20) ER tablet 40 mEq, 40 mEq, Oral, PRN, Heidy Quiñones MD potassium chloride IVPB 10 mEq, 10 mEq, Intravenous, PRN, Heidy Quiñones MD Potassium chloride solution 20 mEq, 20 mEq, Nasogastric, PRN, Heidy Quiñones MD potassium phosphates 15 mmol in sodium chloride 0.9 % 100 mL infusion, 15 mmol, Intravenous, PRN, Heidy Quiñones MD Potassium Phosphates 30 mmol in sodium chloride 0.9 % 250 mL infusion, 30 mmol, Intravenous, PRN, Heidy Quiñones MD regadenoson (Lexiscan) injection 0.4 mg, 0.4 mg, Intravenous, OncDang elizabeth MD sennosides (Senokot) tablet 17.2 mg, 2 tablet, Oral, Nightly PRN, Heidy Quiñones MD sodium chloride (NS) 0.9 % flush 10 mL, 10 mL, Intravenous, q12h, Wyatt Mccarthy MD, 10 mL at 09/12/24 0544 sodium chloride (NS) 0.9 % flush 10 mL, 10 mL, Intravenous, PRN, Wyatt Mccarthy MD sodium chloride (NS) 0.9 % flush 10 mL, 10 mL, Intravenous, q12h, Heidy Quiñones MD, 10 mL at 09/12/24 0410 sodium chloride (NS) 0.9 % flush 10 mL, 10 mL, Intravenous, PRN, Heidy Quiñones MD sodium chloride 0.9 % infusion 250 mL, 250 mL, Intravenous, PRN, Wyatt Mccarthy MD sodium phosphates 15 mmol in dextrose 5 % 100 mL IVPB, 15 mmol, Intravenous, PRN, Heidy Quiñones MD sodium phosphates 30 mmol in dextrose 5 % 100 mL IVPB, 30 mmol, Intravenous, PRN, Heidy Quiñones MD Physical Exam: PHYSICAL EXAMINATION: Visit VitalsBP 112/62 Pulse 62 Temp 36.8 ?C (98.3 ?F) Resp 18 Ht 1.854 m (6' 1") Wt 90.1 kg (198 lb 10.2 oz) SpO2 94% BMI 26.21 kg/m? Smoking Status Never BSA 2.15 m? Physical Exam: Constitutional: Appearance: He is normal weight. HENT: Head: Normocephalic and atraumatic. Mouth/Throat: Mouth: Mucous membranes are moist. Pharynx: Oropharynx is clear. Eyes: Extraocular Movements: Extraocular movements intact. Conjunctiva/sclera: Conjunctivae normal. Cardiovascular: Rate and Rhythm: Normal rate. Pulses: Normal pulses. Pulmonary: Effort: Pulmonary effort is normal. Breath sounds: Normal breath sounds. Abdominal: General: Abdomen is flat. Palpations: Abdomen is soft. Musculoskeletal: General: Normal range of motion. Skin: General: Skin is warm and dry. Neurological: General: No focal deficit present. Mental Status: He is alert and oriented to person, place, and time. Psychiatric: Mood and Affect: Mood normal. Behavior: Behavior normal. Labs & Imaging: LABORATORY DATA: Pertinent Labs :Lab Results Component Value Date WBC 7.36 09/12/2024 Hgb 14.7 09/12/2024 Hct 42.4 09/12/2024 Plt Count 189 09/12/2024 Lab ResultsComponent Value Date Sodium Lvl 139 09/12/2024 Potassium Lvl 3.4 09/12/2024 Chloride Lvl 105 09/12/2024 CO2 Lvl 28.0 09/12/2024 BUN 9 09/12/2024 Creatinine Lvl 1.06 09/12/2024 Glucose Lvl 106 (H) 09/12/2024 POC Glu 108 (H) 09/12/2024 RADIOLOGY DATA: Cardiac catheterization ASSESSMENT: 1. Non-ST elevation myocardial infarction 2. Coronary artery disease. A 50% distal left main stenosis. A 99% ostial/proximal LAD stenosis, a 100% chronic total occlusion of the LAD being filled by left-left collaterals feeding a diagonal branch that fills the LAD antegrade as well as right-left collaterals from the RCA system. A 900% stenosis in the proximal circumflex prior to a bifid obtuse marginal system with 90% disease/stenosis in the diminutive AV circumflex system. A 100% chronic total occlusion of the mid RCA which fills via bridging collaterals and also provides collateral filling to the LAD. 3. Mildly elevated LVEDP of 18 mmHg. PLAN/RECOMMENDATIONS:- Routine post cardiac catheterization care - Transferred to [facility] for consideration of CABG - Continue medical management including aspirin, high intensity statin, and beta-janeth. Will eventually add a P2Y12 inhibitor. Additional therapy depending on results of echocardiogram - Echocardiogram - Cardiac rehabilitation Assessment & Plan: Assessment & PlanCoronary artery disease involving elim ira coronary artery of elim ira heart with unstable angina pectoris (HCC) CT Surgery on board, pending NST to determine if CABG is feasible, unable to do viability scan per Cardiology Continue heparin gtt for NSTEMI and AF Cardiology on board, plan for [facility] Continue ASA, hold off on plavix given possibility for CABG evaluation Transferred to our facility for higher level of care, pending CV Surgery evaluation Continue statin, holding BB and ARB due to hypotension NSTEMI (non-ST elevated myocardial infarction) (CMS/HCC) (HCC) HTN (hypertension)Blood pressures are low at this time Hold antihypertensives Consider PRN medications if systolics only if >180 Paroxysmal atrial fibrillation (CMS/HCC) ([facility])Patient is currently rate controlled Patient currently on heparin gtt but will need anticoagulation on discharge Acute systolic congestive heart failure (CMS/HCC) (HCC)Reviewed TTE from previous hospitalization at [facility] EF 20-25% with apical akinesis, pending viability scan Consider diuresis We will continue strict I's and O's, 2 L fluid restriction, daily weights We will continue aspirin, statin HLD (hyperlipidemia)Continue statin DVT prophylaxis: heparin - 1000 units/mL, 1000 units/mL, 1000 units/mL, 50 units/mL Current Diet: NPO Diet Disposition Anticipated: Pending further clinical workup Heidy Quiñones MDHospital Medicine ON PICTURE OPERATOR * Soila Cohen - 09/11/2024 1:09 PM MOTION PICTURE OPERATOR Store Operations Specialist Note Patient lives with and 18 y//o son in [place], [place]. owns the home. Patient was employed with [employer] in [place], [place] 1 month and was hoping for insurance in October, but had a DE at work. Patient drove himself from [facility] to hospital. Patient states his is checking with [employer] to see if he qualifies for [employer] comp. Patient was following with a [facility] for medical management, but was told he needed a Nail Sticker. Patient unable to afford cost to see a specialist. Patient is fully independent at this time. Before could provide resources this morning, patient was transferred to [facility] for CABG evaluation Admit Location: [facility] (3B POST SURGICAL) Expected Discharge Date: 09/11/2024 Discharge Plan: Transfer to [facility] for CABG ON PICTURE OPERATOR * Bertha Pearson MD - 09/11/2024 10:31 AM MOTION PICTURE OPERATOR Images from the original note were not included. CARDIOLOGY PROGRESS NOTE Subjective: Feels much better, denies any further chest pain Objective: Vitals: 09/11/24 0401 09/11/24 0735 09/11/24 0736 09/11/24 0736 BP: 98/67 Pulse: 63 65 65 Resp: 18 18 Temp: 37 ?C (98.6 ?F) 36.6 ?C (97.8 ?F) 36.6 ?C (97.9 ?F) SpO2: 93% 95% 95% Intake/Output Summary (Last 24 hours) at 09/11/2024 1031 Last data filed at 09/11/2024 0319 Gross per 24 hour Intake 221.04 ml Output 10 ml Net 211.04 ml General: Well nourished, no acute distress speech is clear, affect appropriate HEENT: unremarkable Skin: Warm, dry, no cyanosis, no diaphoresis Neck: without carotid bruit, no mass Back: no mass, non tender Chest/Lungs: Clear to auscultation, no respiratory distress, no wheeze, rales, or rhonchi CV: Normal rate, regular rhythm, normal S1 & S2 Abdomen: Soft, non-tender, non-distended, bowel sounds present, Musculoskeletal/extremity: no tenderness, swelling, peripheral pulses present gu/pelvic/rectal: deferred Neurologic/psych: Awake, Alert and oriented X3, cooperative. Data:Pertinent labs, imaging, and/or procedures were reviewed as available. Medications: [Held by provider] amLODIPine, 10 mg, Oral, Dailyaspirin EC, 81 mg, Oral, Daily Or aspirin, 300 mg, Rectal, Daily atorvastatin, 20 mg, Oral, Daily fluticasone, 2 spray, Each Nostril, Daily heparin, 4,000 Units, Intravenous, Once [Held by provider] hydroCHLOROthiazide, 12.5 mg, Oral, Daily [Held by provider] losartan, 100 mg, Oral, Daily sodium chloride, 10 mL, Intravenous, q12h PRN medications: acetaminophen, heparin, heparin, nitroglycerin, sodiumchloride, sodium chloride ASSESSMENT:Ricardo Hanson is a 59-year-old male admitted on 09/10/2024 after presenting with chest pain. His pertinent problem list includes: Non-ST elevation myocardial infarctionMultivessel CAD Systolic HF ef 20 - 25% Paroxysmal atrial fibrillation with intermittent rapid ventricular response Hypertension Dyslipidemia RECOMMENDATIONS/PLAN:- ECG reviewed demonstrating atrial fibrillation with rapid ventricular response and marked ST segment depression concerning for diffuse ischemia. Subsequent ECG demonstrated resolution of atrial fibrillation with persistent ST segment abnormalities albeit to a lesser extent - Initial troponin value of 2360 pg/mL noted - Heparin drip for NSTEMI and afib - Aspirin load with maintenance therapy of 81 mg daily - hold on additional P2Y12 inhibition for bypass surgery eval Transfer to [facility] [place] - Echocardiogram with eF 20 - 25% - Beta-janeth - High intensity statin therapy. Lipid profile needed. Goal LDL <55 mg/dL - Beta-janeth as above for rate control for atrial fibrillation. The patient's [id number] score is at least 2 (hypertension, potential vascular disease) meriting systemic anticoagulation. Will address antiplatelet requirements with coronary angiogram first before committing to triple therapy - Cardiac rehabilitation on discharge Thank you for allowing us to participate in the care of this patient. Pleasecall with any questions/concerns. Please be advised that this note was created with the assistance of a dictation software. Please interpret appropriately in the context of possible sight effects specialist errors. Bertha Pearson MDNoninvasive Cardiology [facility]2024-11-24 14:40:20Scheduled Orders Scheduled Referrals Name Type Priority Associated Diagnoses Order Schedule Cardiac Rehabilitation Phase II Referral Outpatient Referral Routine NSTEMI (non-ST elevated myocardial infarction) (CMS/HCC) (HCC) Expected: 09/10/2024 (Approximate), Expires: 03/10/2025 Cardiac Rehabilitation Phase II Referral Outpatient Referral Routine NSTEMI (non-ST elevated myocardial infarction) (CMS/HCC) (HCC) Expected: 09/17/2024 (Approximate), Expires: 03/17/2025 Cardiac Rehabilitation Phase II Referral Outpatient Referral Routine NSTEMI (non-ST elevated myocardial infarction) (CMS/HCC) (HCC) Expected: 09/19/2024 (Approximate), Expires: 03/19/2025 Health Maintenance Due Date Last Done Comments CT Colonography 1966 Colonoscopy 1966 Colorectal Cancer Screening 1966 FIT-DNA 1966 FIT 1966 FOBT 1966 Sigmoidoscopy 1966 Annual Physical 1969 Pneumococcal Vaccine: Pediat rics (0 to 5 Years) and At-Risk Patients (6 to 64 Years) (1 of 2 - PCV) 1972 DTaP/Tdap/Td Vaccines (1 - Tdap) 1985 Hepatitis B Vaccines (1 of 3 - 19+ 3-dose series) 1985 Zoster Vaccines (1 of 2) 2016 Influenza Vaccine (#1) 2024 Lipid Panel 09/14/2029 09/14/2024 HIB Vaccines Aged Out No longer eligi ble based on patient's age to complete this topic HPV Vaccines Aged Out No longer eligi ble based on patient's age to complete this topic Hepatitis A Vaccines Aged Out No long er eligible based on patient's age to complete this topic IPV Vaccines Aged Out No longer eligi ble based on patient's age to complete this topic Meningococcal Vaccine Aged Out No yanick leticia eligible based on patient's age to complete this topic Rotavirus Vaccines Aged Out No longer eligible based on patient's age to complete this topic [id number] 14:40:20 [id number] 14:40:20 Diagnosis NSTEMI (non-ST elevated myocardial infarction) ([facility] ([facility]) - Primary Acute myocardial infarction, subendocardial infarction, episode of care unspecified STEMI (ST elevation myocardial infarction) ([facility]) Acute myocardial infarction, unspecified site, episode of care unspecified NSTEMI (non-ST elevated myocardial infarction) ([facility]) ([facility]) Acute myocardial infarction, subendocardial infarction, episode of care unspecified Atrial fibrillation with rap id ventricular response ([facility]) ([facility]) HTN (hypertension) Unspecified essential hypertension HLD (hyperlipidemia) Other and unspecified hyperlipidemia Coronary artery disease invo lving elim ira coronary artery of elim ira heart with unstable angina pectoris ([facility]) Paroxysmal atrial fibrillation ([facility]) ([facility]) Atrial fibrillation Acute systolic congestive he art failure ([facility]) ([facility] Cardiogenic shock ([facility]) Cardiogenic shock Thrombocytopenia ([facility]) Unspecified thrombocytopenia CHF (congestive heart failure) ([facility]) ([facility]) Congestive heart failure, unspecified Ischemic cardiomyopathy Other specified forms of chronic ischemic heart disease NSTEMI (non-ST elevated myocardial infarction) ([facility]) ([facility]) Acute myocardial infarction, subendocardial infarction, episode of care unspecified NSTEMI (non-ST elevated myocardial infarction) ([facility] ([facility]) Acute myocardial infarction, subendocardial infarction, episode of care unspecified NSTEMI (non-ST elevated myocardial infarction) ([facility] ([facility]) Acute myocardial infarction, subendocardial infarction, episode of care unspecified [facility] [id number] 14:40:20 [facility] [id number] 10:11:15 Images from the original note were not included. [id number] Coronary Angioplasty Your healthcare team will talk to you about your heart problem and explain how angioplasty can help. Angioplasty relieves symptoms of coronary artery disease by improving blood flow to your heart. Chest pain (angina) can be caused by poor blood flow through a narrow or blocked artery that would normally supply oxygen and nutrients to the heart muscle. Not all blockages can be fixed by coronary angioplasty alone. You may need other treatments including medicines, surgery, or coronary stents to treat your coronary artery disease. A biotech production specialist called an biodiesel production associate does the angioplasty procedure. They have specialized training in using the equipment and in doing the procedure as safely as possible. The balloon compresses the plaque against the artery wall. Blood flow to the heart muscle increases. Risks of angioplasty All procedures have risks. Possible risks linked to angioplasty include: ? Bleeding at the site where the catheter is put into the body (usually the groin, wrist, or arm) ? Blood clot or damage to the blood vessel from the catheter ? Blood clot in the treated blood vessel ? Infection at the catheter insertion site ? Abnormal heart rhythms ? Heart attack ? Stroke ? Chest pain or discomfort ? Bursting (rupture) of the coronary artery or complete closing of the coronary artery, needing open-heart surgery ? Allergic reaction to the contrast dye used ? Kidney damage from the contrast dye. Tell your healthcare provider if you have kidney disease. During the procedure ? A member of the healthcare team will numb the skin at the insertion site (usually the groin, wrist, or arm) with a local anesthetic. This is so you don't feel pain when the catheter is inserted. Next, your healthcare provider will make a small hole or cut (puncture) to insert the catheter. ? Your provider will insert a guide wire through a thin, flexible tube (the guiding catheter) and move it to the narrow spot in your heart artery. They will use an angiogram to see the blockage. An angiogram is an X-ray movie of blood flow through the heart arteries using contrast dye. ? Your provider will insert a balloon-tipped catheter through the guiding catheter and thread it over the guide wire. They'll position it at the narrowed part of the artery. ? Next they'll inflate and deflate the balloon several times to compress the plaque against the artery wall. You may feel pressure or chest discomfort when the balloon is inflated. Tell your provider if you do. ? Often, a stent is also placed in the artery. This is a small, metal mesh tube that helps prop the sides of the blood vessel open and keeps it from closing again. ? Finally, your provider deflates the balloon and removes the catheters and guide wire. The artery is now open, and blood flow to the heart muscle is restored. After the procedure ? You'll need to stay still in bed. This is to prevent bleeding. The amount of time you must lie still may depend on if a closure device, such as a stitch or collagen plug, was used to close the opening that was made in your artery. The time you must be still may be shorter if one of these devices was used. ? A nurse will check the insertion site and your blood pressure often (about every 15 to 30 minutes). Before going home, you may have an electrocardiogram or other tests if needed. ? You may be able to go home after several hours on the same day. Or you may spend the night in the hospital after your procedure. Depending on your condition and the results of your procedure, your stay may be longer. ? Plan to have someone drive you home. ? You may be started on new medicines to prevent blood clots from forming at the site in your artery where the angioplasty was done. Make sure you take this medicine as directed. Other medicines that are often prescribed are to prevent re-narrowing of the arteries or to prevent a heart attack. These medicines commonly include: o A medicine to lower cholesterol (statin) o Medicines to thin your blood to help prevent blood clots (such as aspirin or clopidogrel) o Medicine to take to ease chest discomfort (such as nitroglycerin) ? Your activity will be restricted for about 3 to 7 days while the puncture site (groin, wrist, or arm) is healing. ? Keep the puncture site clean and dry until the skin heals in the area. Showering is OK. But don't soak in a bathtub, hot tub, or swimming pool until the skin has healed. ? It's normal to have a bruise or to feel a pea-sized bump under the skin at the puncture site. This bump may be a collagen plug or stitches that were used to close the artery. It should get smaller as time goes by. You should not have active bleeding or a growing bruise at the site. Call 911 Call 911 if any of the following occur: ? Abnormal or lasting chest pain ? Severe pain, numbness, coldness, or a bluish color in the leg or arm where the catheter was inserted ? Fainting ? You have blood in your urine; bloody, black, or tarry stools; or any other kind of significant bleeding When to call your healthcare provider Call your healthcare provider if you have any of the following: ? You have chest pain that's quickly eased with medicines ? The insertion site has pain, swelling, redness, bleeding, or drainage ? Fever of 100.4?F (38?C) or higher, or as advised by your provider Last Reviewed Date: 2023 00:00:00 ? [id number] [employer]. All rights reserved. This information is not intended as a substitute for professional medical care. Always follow your healthcare professional's instructions. [facility] Internal MedicineJohn Peter Smith [id number] 10:11:14 Images from the original note were not included. 50388 Diabetes and Heart Disease If you have diabetes, you're twice as likely to have heart disease or a stroke than someone without diabetes. You may also get heart disease at a younger age. This higher risk is because of diabetes. But it's also due to related risk factors for heart disease that happen with diabetes. The good news? You can reduce your risk for heart disease. This can happen with a healthy diet, exercise, and diabetes management. Your main risk factors The 3 major risk factors for heart disease are high blood sugar, high blood pressure, and high levels of fat in the blood (lipids). By controlling these things, you can help keep your heart and arteries healthy. This may reduce your risk of heart disease. ? Blood sugar. High blood sugar can make artery wharton tough and rough. Plaque is waxy material in the blood. It can then build up along the artery wharton. This makes it harder for blood to flow through the arteries. High blood sugar also raises the chances of having high blood pressure and high cholesterol. ? Blood pressure. When blood pressure is high all the time, it causes your heart to work harder to pump blood. Artery wharton become damaged. This makes it more likely for plaque to build up. ? Lipids. Your body needs some blood fats (lipids) to stay healthy. But lipid levels that are too high can harm artery wharton. Lipids include cholesterol and triglycerides. There are 2 kinds of cholesterol. LDL (bad) cholesterol can damage the arteries. But HDL (good) cholesterol helps clear LDL from the blood vessels. This helps keep the arteries healthy. When blood sugar is high, the level of triglycerides in the blood may also be high. This can also cause plaque to form. Other risk factors Certain lifestyle factors can raise levels of your blood sugar, blood pressure, and lipids. Higher levels raise your risk for heart disease: ? Smoking. Smoking damages the lining of your arteries. This allows plaque to build up in the artery wharton. It also narrows the arteries. This can raise blood pressure and cause chest pain (angina). Smoking also raises your risk of getting type 2 diabetes. Also don't use e-cigarette, or vaping, products. ? Not being active. Not being active makes it harder for your heart to do its work. Inactivity is linked to many other problems, such as high blood pressure and high cholesterol levels. Inactivity also increases your risk of getting type 2 diabetes. ? Being overweight. Being overweight makes it harder for your body to use insulin. It also makes your heart work too hard. Being overweight is also 1 of the main risk factors leading to type 2 diabetes. Changes you can make Take your medicines as directed each day, even if you feel fine. The simple steps below can help keep your risk factors under control. Work with your healthcare team to reach your goals. ? Quit smoking. Quitting smoking could save your life. Smoking harms the lining of the blood vessels. It raises blood pressure. It also affects how your body uses insulin. This makes it harder to keep blood sugar under control. If you smoke and need help quitting, talk with your healthcare team. ? Test your blood sugar. Checking your blood sugar is the only way to know if it's under control. Test your blood sugar yourself. Use a blood glucose meter or a continuous glucose monitor. Also get tested in the lab, as directed. ? Check your blood pressure and lipids. Keeping track of your blood pressure and lipid levels is baker. This can help you stay at safe levels. Visit your healthcare team as scheduled. ? Take medicines as directed. This can help control blood sugar, blood pressure, blood clotting, and cholesterol levels. Several medicines for diabetes may also lower your risk for heart attacks and strokes. ? Eat healthy. Eating healthy foods can cut your risk factors and help you lose weight. Try to limit the amount of processed or refined carbohydrates you eat at one time. Cut back on your total calories. Eat foods low in saturated fat and cholesterol. Eat fiber, including vegetables and whole grains. And cut down on salt. A dietitian or blending operator can help make a meal plan that works for you?even if you're on a limited budget. Ask your dietitian about the Diabetes Plate Method. This method is recommended by the [place] [employer]. ? Limit alcohol. Drinking alcohol even in low or moderate amounts can be harmful. It can increase your body's sensitivity to insulin. But it also places you at greater risk for low blood sugar reactions. ? Be active. Physical exercise can help reduce your weight and strengthen your heart. It can also lower your lipid levels and blood pressure. Exercise and activity are good for your whole body. Talk to your healthcare team about increasing your activity safely over time. ? Keep your appointments. Regular visits with your healthcare provider help you stay healthy. Go in for checkups and lab tests as scheduled. Last Reviewed Date: 2023 00:00:00 ? [id number] [employer]. All rights reserved. This information is not intended as a substitute for professional medical care. Always follow your healthcare professional's instructions. [facility]2024-11-24 10:11:14 Images from the original note were not included. 06167 Understanding Off-Pump Coronary Artery Bypass (CABG) Surgery Coronary artery bypass surgery is a type of heart surgery. It?s often called CABG. The surgery is done to bypass a blocked area in a coronary artery or arteries. This is known as coronary artery disease. The coronary arteries are blood vessels that bring blood and oxygen to the heart muscle. They keep the heart muscle healthy so it can pump blood around the body. What is off-pump CABG? Off-pump heart surgery is done without using a heart-lung machine (called cardiopulmonary bypass). The heart instead continues to pump blood on its own during the surgery. This is also known as ?beating heart surgery.? During CABG, a surgeon takes an artery or a vein from another place in your body. It?s most often taken from the chest wall or a leg. This blood vessel is known as the graft. This is the ?G? in CABG. That artery or vein is then attached above and below the blocked area of the coronary artery. This lets blood bypass the blocked area. It restores normal blood flow to the heart. Your healthcare provider may plan the surgery in advance. Or you might need it in an emergency if a vessel suddenly becomes blocked. Why off-pump CABG is done The surgery can help ease chest pain and the risk for a heart attack. How off-pump CABG is done Your procedure will be done by a cardiac surgeon. This is a doctor who treats diseases of the heart.. The surgery can be done in more than one way. ? You?ll be given medicine to prevent pain. It will also put you to sleep during the surgery (general anesthesia). The anesthesiologist will watch your breathing and vital signs during the surgery. They will also give you blood-thinning medicine. ? Your surgeon will make a cut (incision) to remove a blood vessel from another part of your body. This is the graft. The graft is most often taken from your chest wall or your leg. ? Your doctor will make an incision down the middle of your chest. They will then separate your breastbone to reach your heart. ? A device is placed on the heart to help keep stable the area being grafted. Your surgeon will attach one end of the graft to the diseased coronary artery beyond the blockage. This bypasses the blockage. The other end of the graft will be attached (stitched) to the aorta. This restores a flow of blood from the aorta through the graft to the heart muscle. The aorta is the main blood vessel leading from the heart out to the body. Risks of off-pump CABG All surgery has some risks. The risks of off-pump CABG include: ? Infection ? Bleeding ? Irregular heart rhythms ? Blood clots that can lead to stroke or heart attack ? Problems from anesthesia ? Kidney failure ? Need for a procedure in the future to improve the heart?s blood supply ? Heart attack ? Grafts that don?t work correctly ? Your risks may vary according to your age, your general health, and other things. Talk with your healthcare provider about which risks apply most to you. Last Reviewed Date: 2022 00:00:00 ? [id number] [employer]. All rights reserved. This information is not intended as a substitute for professional medical care. Always follow your healthcare professional's instructions. [facility] [id number] 10:11:14 Images from the original note were not included. [id number] Having Off-Pump Coronary Artery Bypass Graft (CABG) Surgery Coronary artery bypass graft (CABG) surgery is a type of heart surgery. A cardiopulmonary bypass machine isn't needed during off-pump CABG surgery (also called beating heart surgery). The surgery is done to bypass a blocked area in a coronary artery. This is known as coronary artery disease (CAD). The coronary arteries are blood vessels that supply blood to the heart muscle. They keep the heart muscle healthy so it can pump blood around the body. What to tell your healthcare provider Tell your healthcare provider about all the medicines you take. This includes prescription and iufm-bbc-[id number] medicines, such as ibuprofen. It also includes vitamins, herbs, and other supplements, as well as illegal drug use. Tell your provider if you: ? Have had any recent changes in your health, such as an infection or fever ? Are sensitive or allergic to any medicines, latex, tape, or anesthesia (local and general) ? Are or think you may be Tests before your surgery Before your surgery, you may need tests such as: ? Chest X-ray ? Electrocardiogram (ECG) to check the heart?s rhythm ? Blood tests to look at your general health ? Echocardiogram to view heart anatomy and blood flow through the heart ? Cardiac stress testing to check your heart?s activity during exercise Getting ready for your surgery Talk with your healthcare provider about how to get ready for your surgery. You may need to stop taking some medicines, such as blood thinners and aspirin, before the surgery. If you smoke, you may need to stop before your surgery. Smoking can delay healing. Talk with your provider if you need help to stop smoking. Also, make sure to: ? Ask a family member or friend to take you home from the hospital. Don't drive yourself. ? Plan some changes at home to help you recover. Arrange for help at home. ? Follow any directions you're given for taking medicines and for not eating or drinking before surgery. ? Follow all other instructions from your provider. You'll be asked to sign a consent form that gives your permission to do the surgery. Read the form carefully. Ask questions if something isn't clear. On the day of surgery Your procedure will be done by a cardiac surgeon. This is a healthcare provider who treats diseases of the heart. They'll work with a team of specialized nurses and operating room staff. The surgery can be done in more than one way. Some surgeons use robot-controlled arms to do the surgery. Talk with your surgeon about the risks and benefits of this kind of surgery. The surgery will take several hours. In general, you can expect the following: ? You'll have general anesthesia, medicine that allows you to sleep through the surgery. You won?t feel any pain during the surgery. ? Hair in the area of the surgery may be removed. ? Your heart will keep beating during the surgery. ? A healthcare team will watch your vital signs, like your heart rate and blood pressure, during the surgery. ? Your surgeon will make an incision to remove a blood vessel from another part of your body. This is the graft. The graft vessel is most often taken from your chest wall, leg, arm, or abdomen. ? The surgeon will make an incision down the middle of your chest. They'll then separate your breastbone to reach your heart. ? If you're having a minimally invasive off-pump CABG, the surgeon will instead make a small incision down the middle of your chest. They'll then separate a small part of your breastbone. They may use special tools and a tiny camera to do the surgery. The surgeon may make several small incisions in your chest between the ribs. ? The surgeon will attach the graft vessel to the aorta. The aorta is the main blood vessel leading from the heart out to the body. The surgeon will attach the other end of the graft vessel to the blocked coronary artery, to bypass the blockage. ? The healthcare team wires your breastbone back together, if needed. ? The team closes all incisions with stitches or carlos alberto. They put dressings (bandages) on the incisions. After your surgery After surgery, you'll be taken to a recovery room or directly to the intensive care unit (ICU). Nurses will check your breathing, heart rate, and blood pressure. You may have a tube draining fluid from your chest. You may have a tube in your throat to help you breathe. This may be uncomfortable, and you won?t be able to talk. The tube is usually removed within 24 hours. You may stay in the hospital for up to 5 days. You may have some pain at the incision site after surgery. You can take pain medicines to help relieve it. Only take pain medicine approved by your healthcare provider. In a day or two, you should be able to sit in a chair and walk with help. You may need to do breathing therapy to help prevent or remove fluid building up in your lungs. You can go back to your normal food as soon as you feel able. Make sure you have someone to help at home for a while. When you go home, it may take a little while for you to return to your normal activities. Avoid vigorous exercise until your healthcare provider says you're ready. Don?t lift anything heavy until your provider says it?s OK. Ask your provider when it's safe for you to drive. Follow-up care You'll likely have your stitches or carlos alberto removed in 7 to 10 days. Make sure you keep all of your follow-up appointments. Follow all the instructions your healthcare provider gives you for medicines, exercise, diet, and wound care. Your healthcare provider may refer you to a cardiac rehab program. This is to help you regain your strength after heart surgery. When to call your healthcare provider Call your healthcare provider right away if you have any of these: ? Fever of 100.4?F (38?C) or higher, or as directed by your healthcare provider ? Increase in pain, redness, bleeding, or fluid leaking from the incision ? Other symptoms as advised Last Reviewed Date: 2024 00:00:00 ? [id number] [employer]. All rights reserved. This information is not intended as a substitute for professional medical care. Always follow your healthcare professional's instructions. [facility]2024-11-24 10:11:13 Images from the original note were not included. 13420 Coronary Artery Bypass Surgery Your coronary arteries are the vessels that carry blood to your heart muscle. If one or more of these arteries are blocked, blood can?t flow to the heart muscle. In this case, part of the heart muscle may (heart attack). Or it may become weakened and damaged and cause chest pain (angina). You may have shortness of breath, increasing tiredness (fatigue), leg swelling, or a run-down feeling. Coronary artery bypass surgery makes a path for blood to flow around a blockage. It helps reduce the risk for more damage to your heart caused by the lack of blood. It may also ease your symptoms of angina or shortness of breath. Getting ready for surgery Prepare for the procedure as you have been instructed. In addition: ? Tell your healthcare provider about all medicines you take. This includes zaij-eos-nbqiayd medicines. It also includes herbs and other supplements and any recreational drugs. You may need to stop taking some or all of them before surgery. Your healthcare team will tell you which to take or stop. Pay attention to which medicines you need to take the day of surgery and which you should stop before surgery. Make sure you know when medicines should be stopped. ? If you smoke, use smokeless tobacco, electronic cigarettes, or vaping devices, you should quit before your surgery. ? Follow all directions you are given for not eating or drinking before surgery. Most people are told to not eat or drink anything after midnight before their procedure. Being on a heart-lung machine Coronary artery bypass surgery can be done with the heart still beating (off pump) or with the heart stopped (on pump). Your surgery team can tell you more about which type of surgery you will have: ? On-pump surgery. A machine does the work of your heart and lungs during surgery. Blood is circulated through the heart-lung machine. The machine supplies the blood with oxygen and pumps it back through the body. In these cases, the heart may be stopped temporarily before the graft is attached. Your own heart and lungs start working again after the bypass is done. ? Off-pump surgery. The heart-lung machine is not used, and the heart is not stopped. This is sometimes called a "beating heart" procedure. There are risks and benefits of each method. If you have a question about why your doctor is using one method instead of the other, don't be afraid to ask. Preparing the bypass graft First, a healthy blood vessel (graft) is taken from another part of your body. Taking this graft usually doesn't affect blood flow in that body part. Often there is more than one blockage in the coronary artery. If you have more than one blockage, you may need more than one graft. You may have special ultrasound tests to look at the possible grafts before surgery. One or more of these blood vessels will be used for the graft: ? The saphenous vein, which is in the leg ? The radial artery, which is in the wrist ? The internal thoracic (mammary) arteries, which are in the chest wall. There are two internal thoracic arteries, one on each side of the chest. Most often, the left artery is used, but sometimes both are used. Reaching the heart While one member of the bypass team is harvesting the graft or grafts, another member works to reach your heart. The provider makes an incision in your chest. Then they open the breastbone (sternum) down the middle and pull it apart. The breastbone is held open during surgery. This puts pressure on the nerves of the chest. This is why you may have soreness and muscle spasms in your chest, shoulders, and back after surgery. Attaching the graft A small opening is made in the coronary artery, past the blockage. If a saphenous vein or radial artery is used , one end of the graft is sewn onto this opening. The other end is typically sewn onto the aorta. Neither the diseased artery nor the blockage is removed. If a stent is in place, it is not removed either. This is because the stent will already have become a permanent part of the artery. If the internal thoracic (mammary) artery is used , one end of the graft is sewn onto this opening. The other end is already attached to a branch of the aorta. Finishing up Once the graft has been attached, blood will start flowing through this new pathway to bypass the blockage. If you have multiple blockages, more than one bypass may be done. Then your breastbone is rejoined with wires. These wires will stay in your chest permanently. They rarely cause a problem. They are safe around airport metal detectors and in MRI machines. The incision is closed, and you are taken to the intensive care unit (ICU) to begin your recovery. Risks and possible complications You and your surgeon can discuss the risks and possible complications of coronary artery bypass surgery. They may include: ? A lot of bleeding that means you need a blood transfusion or more surgery ? Infection of the incision sites ? Lung infection (pneumonia) and other infections ? Fast, slow, or irregular heartbeat (often temporary) ? Slow heart rate that can mean you need a permanent pacemaker inserted ? Nerve injury or muscle spasms ? Breathing problems ? Memory problems or confusion ? Heart attack, stroke, or ? Damage to other parts or organs of your body Last Reviewed Date: 2022 00:00:00 ? [id number] [employer]. All rights reserved. This information is not intended as a substitute for professional medical care. Always follow your healthcare professional's instructions. [facility]2024-11-24 10:11:13 Images from the original note were not included. 62015 After Coronary Artery Bypass Surgery You had a coronary artery bypass graft surgery (CABG, pronounced ?cabbage?). This surgery created new pathways around blocked parts of your heart?s blood vessels, allowing blood to reach your heart muscle. Your healthcare provider used a healthy blood vessel from another part of your body (a graft) to restore blood flow. Activity ? Discuss with your healthcare provider what you can and can?t do as you recover. You will have good and bad days. This is normal. But tell your healthcare provider if you feel depressed, have trouble sleeping, or have a persistent decrease in appetite. Although these problems are common after surgery, they can slow your recovery. It?s important to seek help. ? Let others drive you wherever you need to go for the first 6 weeks after your surgery. ? Ask someone to stand nearby while you shower or do other activities, just in case you need help. ? Don't use very hot water while showering. It can affect your circulation and make you dizzy. ? Weigh yourself every day, at the same time of day, and in the same kind of clothes. A good way to do this is to weigh yourself in the morning when you first get out of bed and after peeing. Quick weight gain can be a sign of a problem that needs your healthcare provider?s attention. ? You may start doing light work around the house and yard after 2 to 3 weeks at home. Don?t lift anything heavier than 5 pounds. Your healthcare provider may give you a more specific weight restriction. Until approved by your healthcare provider, don't mow the lawn, vacuum, drive, lift heavy items, or do other activities that could strain your breastbone. ? Ask your healthcare provider when you can expect to return to work. It often depends on the type of work you do. ? Your provider may refer you to a cardiac rehab program. Cardiac rehab is a medically supervised program. It's designed to help your heart recover and your ability to function. It prepares you for future daily activities. It's overseen by a cardiac doctor and a team of cardiac health providers. Your program may last from 6 weeks to more than a year. The goal of cardiac rehab is to help ease your symptoms and make your heart as healthy as possible. Your program may include exercise, classes on quitting smoking, nutrition information, counseling, stress management, and occupational therapy. In some cases, you may be able to do this at home. Ask your provider if a cardiac rehab program would help you. Pain relief You will recover faster after surgery if your pain is kept under control: ? Don?t be surprised if you feel sharp pains as your breastbone heals or if you have soreness in your incision during changes in weather. ? Tell your healthcare provider if you have questions about what you?re feeling, if your medicines don?t reduce your pain, or if you suddenly feel worse. Incision care Healing takes several weeks. The bandage or dressing on your chest will likely be removed before you go home. If it's still in place, ask your healthcare provider how you should care for it after you return home. Do the following to care for your incision: ? If there are any adhesive skin closures still on your incision, ask your provider when you can remove them. They may fall off on their own after a week. ? Clean your incision every day with soap and running water. ? Gently pat the area of the incision to dry it. ? Don?t use any powders, lotions, ointments, or oils on your incision until it's well healed, unless your provider tells you to do so. ? Using a cool pack can reduce soreness and itching. Itching is common as the incision heals. Ask your provider how to safely use a cool pack. Lifestyle changes ? Ask your healthcare provider when you can start a walking program: o If you haven?t already started a walking program in the hospital, start with short walks (about 5 minutes) at home. Go a little longer each day. o Choose a safe place with a level surface, such as a local park or mall. o Wear supportive shoes to prevent injury to your knees and ankles. o Walk with someone. It?s more fun and helps you stay with it. ? Take your medicines exactly as directed. Don?t skip doses. ? Maintain a healthy weight. Get help to lose any extra pounds. ? Avoid fatty and fried foods. Stick to lean meats, such as chicken or fish. ? Cut back on salt: o Limit canned, dried, packaged, and fast foods. o Don?t add salt to your food at the table. o Season foods with herbs instead of salt when you cook. ? Break the smoking habit. Enroll in a stop-smoking program to improve your chances of success. When to call your healthcare provider Call your healthcare provider immediately if you have any of the following: ? Chest pain or a return of the heart symptoms you had before your surgery ? Fever of 100.4?F (38?C) or higher, or as directed by your healthcare provider ? Signs of infection (redness, swelling, drainage, foul smelling odor, or warmth) at the incision site. ? Weight gain of more than 2 pounds in 1 day, more than 5 pounds in 1 week, or whatever weight gain you were told to report by your healthcare provider ? New or increased swelling in your hands, feet, or ankles ? Unrelieved pain at the incision site(s) ? Fast, slow, or irregular pulse that resolves promptly ? Persistent abdominal pain ? Nausea, vomiting, or constipation ? Trouble urinating ? Bleeding that is controlled with pressure or that stops on its own Call 911 Call 911 if any of the followinng occur: ? New, unusual, or worsening chest pain ? Pain that is typical for your angina and doesn't go away promptly with medicine or rest ? New, unusual, or worsening chest pain ? New, unusual, or worsening difficulty breathing ? Uncontrollable bleeding from a wound ? Dizziness or faintness that doesn't go away promptly with sitting or lying down ? Persistent unusually fast, slow, or irregular pulse Last Reviewed Date: 2022 00:00:00 ? [id number] [employer]. All rights reserved. This information is not intended as a substitute for professional medical care. Always follow your healthcare professional's instructions. [facility]2024-11-24 10:11:13 Images from the original note were not included. 19249 Understanding Coronary Microvascular Disease If your healthcare provider says you have coronary microvascular disease (CMD), your first thought might be, ?What is that?? Don?t feel bad if you?ve never heard the term before. When we think of heart disease, we often think of coronary artery disease (CAD). CAD is the most common type of heart disease. It affects the large arteries on either side of the heart. The arteries become blocked and harden, usually from a buildup of cholesterol on their inner wharton. Up to 50% of people with a heart condition do not have a blockage, but they still have symptoms of heart disease. That is CMD, which affects the heart?s smaller blood vessels and arteries. While there is no cure for CMD, it can be treated. Learning more about this type of heart disease can help you feel more in control of your care. What is CMD? CMD is also sometimes called small artery or small vessel disease. It occurs when the wharton and inner lining of tiny coronary artery blood vessels of the heart become damaged. In some cases, the small arteries of the heart don?t function properly. CMD can decrease blood flow to the rest of the heart muscle. It can also cause spasms in the heart. Both of these can lead to chest pain, heart attack, or even heart failure. CMD can also increase the risk of stroke and even . What are the symptoms of CMD? The signs of CMD and a heart attack are similar. Chest pain is the main symptom. Anyone experiencing chest pain should seek medical care right away. People who have CMD may start to have trouble doing regular activities. They may also feel symptoms during times of stress. Along with chest pain, these are common symptoms of CMD: ? Shortness of breath ? Fatigue and low energy ? Sleep problems ? Dizziness ? Pain in the arm, jaw, left shoulder, back, or abdomen Because it?s similar to other types of heart disease, it can be difficult to diagnose CMD. CMD is usually diagnosed through various tests. Some examples include a stress test, blood test, coronary angiography, and heart scans. Your provider may also ask you to answer questions about how hard or easy it is to do common tasks. Who is most at risk for CMD? Those who are at risk for heart disease are also at risk for CMD. This includes people who have diabetes, high blood pressure, and high cholesterol. Older age is also a risk factor. In addition, a family history of heart disease can make people more likely to have CMD. Having other health conditions may increase the risk of developing CMD. These include: ? Autoimmune disease ? Lupus, arthritis, and other inflammatory diseases ? Chronic kidney disease ? Metabolic syndrome Women are more likely to have CMD than men. About 60 to 75% of people with CMD are women. Having low levels of estrogen or high blood pressure before menopause can increase a woman?s risk for CMD. Many women who have chest pain caused by heart disease have CMD, not CAD. Smoking, obesity, lack of physical activity, an unhealthy diet, and other lifestyle factors may also increase the risk of CMD. Preventing CMD Heart disease is the leading cause of in the [place] and around the world. Thankfully, there are ways to reduce your risk of CMD and other heart diseases. Following these healthy lifestyle habits can help: ? Avoid smoking. ? Get regular physical activity. ? Maintain a healthy body weight. ? Manage blood pressure and cholesterol. ? Lower blood sugar levels. ? Get plenty of sleep. Seven or more hours a night is recommended. ? Decrease or manage stress. In addition, eating healthy foods is a good way to lower the risk of CMD and other health conditions. Include lots of fruits, vegetables, whole grains, low-fat dairy, and lean proteins. Limit sodium, alcohol, added sugars, and saturated fats, which come from meat, dairy, and some cooking oils. Saturated fats can raise ?bad? cholesterol, which can contribute to heart disease. Treatment for CMD CMD can be managed through lifestyle changes and medicine. The same healthy lifestyle habits that can lower your risk of CMD are also effective ways to manage the symptoms. Medicines may include those that lower cholesterol and blood pressure or ones that prevent blood clots or chest pain. Other medicines may relax the blood vessels to make blood flow easier. Cardiac rehab that?s tailored for heart patients may also help with CMD symptoms. Managing other health conditions that can contribute to CMD, like diabetes, can help, too. CMD is not typically treated with surgery. Finding out you have CMD can be stressful. But remember, you?re not alone. Your healthcare provider is there to help you create a treatment plan that works for you. Last Reviewed Date: 2024 00:00:00 ? [id number] [employer]. All rights reserved. This information is not intended as a substitute for professional medical care. Always follow your healthcare professional's instructions. [facility]2024-11-24 10:11:13 Images from the original note were not included. 49649 Stroke and Heart Disease Every part of your body, including your heart and brain, needs oxygen to work. Oxygen is carried in the blood. Blood vessels called arteries carry oxygen-rich blood throughout the body. Both heart attack and stroke are due to problems in the arteries. The same factors that cause heart disease can make you more likely to have a stroke. ? Heart attack. A heart attack is caused by a blockage in an artery that carries blood to the heart muscle. If blood is blocked, that part of the heart muscle is damaged or dies. ? Stroke. If an artery that supplies blood to the brain is blocked, a stroke may happen. This is called an ischemic stroke. It is caused by a piece of plaque breaking loose from an artery, such as a carotid artery in the neck. Or it may be caused by a blood clot from the heart traveling up into the brain. Another kind of stroke is a hemorrhagic stroke. This is caused by the rupture of a weakened blood vessel. Both heart attack and stroke are medical emergencies. They can lead to serious health problems. They can even cause . Healthy artery A healthy artery is a tube with flexible wharton and a smooth inner lining. Blood flows freely through it. Unhealthy artery Artery problems start when the inner lining gets damaged. This is often because of risk factors such as high cholesterol, smoking, and high blood pressure. These can make the artery wharton stiff. Plaque, a fatty mix of cholesterol and other material, forms in the lining. This narrows the space inside the artery. Plaque can break off and limit blood flow further along the blood vessels. It can also cause a blood clot to form. A blood clot may fully block the side of the artery. Reducing your risk Making changes that make your arteries healthier will help lower your risk for both heart attack and stroke. If you have heart disease, you may need to work on a few aspects of your lifestyle. But remember that the things that are good for your arteries, heart, and brain are also good for the rest of your body. Your healthcare provider will work with you to make lifestyle changes as needed to help prevent your heart disease from getting worse. If it gets worse, that can lead to heart attack or stroke. Factors you may need to work on include: ? Diet. Your healthcare provider will give you information on dietary changes that you may need to make. Your provider may advise that you see a registered dietitian for help. Changes may include: o Reducing fat and cholesterol intake o Reducing sodium (salt) intake, especially if you have high blood pressure o Eating more fresh vegetables and fruits o Eating lean proteins, such as fish, poultry, and legumes (beans and peas) and eating less red meat and processed meats o Eating low- or no-fat dairy products o Using vegetable and nut oils in limited amounts o Limiting sweets and processed foods, such as chips, cookies, and baked goods ? Physical activity. Your healthcare provider may advise that you increase your physical activity if you have not been as active as possible. Your provider may advise you to include moderate to vigorous intensity activity for at least 40 minutes each day for at least 3 to 4 days per week. The amount will depend on your health. Examples of moderate to vigorous activity include: o Walking at a brisk pace, about 3 to 4 miles per hour o Jogging or running o Swimming or water aerobics o Hiking o Dancing o Martial arts o Tennis o Riding a bike or a stationary bike ? Weight management. If you are overweight or obese, your healthcare provider will work with you to lose weight and lower your BMI (body mass index) to a normal or near-normal level. Making dietary changes and increasing physical activity can help. ? Smoking. If you smoke, break the smoking habit. Enroll in a stop-smoking program to improve your chances of success. ? Stress. Learn stress management methods to help you deal with stress in your home and work life. Last Reviewed Date: 2022 00:00:00 ? [id number] [employer]. All rights reserved. This information is not intended as a substitute for professional medical care. Always follow your healthcare professional's instructions. [facility] [id number] 10:11:12 Images from the original note were not included. 44022 Understanding Coronary Artery Disease (CAD) Your heart is a muscle. To work right, this muscle needs a steady supply of oxygen. The coronary arteries are blood vessels that send oxygen-rich blood to the heart muscle. Coronary artery disease (CAD) is when there?s a problem in these blood vessels. Healthy artery. A healthy coronary artery has no blockages. Blood easily flows through it. Healthy arteries can supply all the oxygen-rich blood your heart muscle needs. Healthy artery. Damaged artery. Some things can damage the lining of an artery. These include smoking, high blood pressure, and high blood sugar. CAD starts when this damage leads to the buildup of plaque along the artery wall. Plaque is a substance made of cholesterol and other fatty deposits. Plaque narrows the arteries that send blood to your heart muscle. This is called atherosclerosis. Damaged artery. Narrowed artery. As more plaque builds up, an artery has trouble sending blood to your heart muscle when it's needed the most, such as during exercise. You may not feel any symptoms when this happens. Or you may feel pressure, tightness, aching, or pain in your chest, jaw, neck, back, or arm. This is called angina. Narrowed artery. Blocked artery. A piece of plaque can break off. This is called ruptured plaque. It can fully block the artery. But more often, a blood clot forms on a piece of ruptured plaque. Together these block the narrowed artery. Then blood can't reach the heart muscle. Right away, part of the heart muscle becomes damaged and stops working. You may feel crushing pressure or pain in or around your chest. This is a heart attack (acute myocardial infarction). It?s a medical emergency. Blocked artery. Last Reviewed Date: 2021 00:00:00 ? [id number] [employer]. All rights reserved. This information is not intended as a substitute for professional medical care. Always follow your healthcare professional's instructions. [facility]2024-11-24 10:11:11 Images from the original note were not included. 82112 Your Heart Is at Risk Plaque and blood clots in the coronary arteries reduce blood flow to the heart: ? When a coronary artery narrows, less blood and oxygen flow to the heart muscle. The decreased blood flow can cause symptoms of angina. This is often felt as temporary pain or pressure in or near the chest. This can also feel like pain in the jaw, neck, and shoulder. ? When a coronary artery narrows too much, very little blood and oxygen reach the heart muscle beyond the site of narrowing. If a clot forms, blood flow in the artery may stop. This can result in a heart attack (acute myocardial infarction). If the muscle goes without oxygen for too long, that part of the heart muscle dies. Your whole body is at risk Plaque buildup in arteries can lead to problems throughout the body. Common sites of artery problems include: ? Brain. Arteries in the brain or leading to the brain (carotid arteries) can become blocked. When this happens, blood flow to that part of the brain is reduced and that part of the brain can?t get the oxygen it needs. That portion of the brain is damaged. This is a stroke (ischemic stroke). ? Kidneys. If an artery that carries blood to the kidneys is narrowed, the kidneys have a hard time filtering blood. This can lead to kidney damage. ? Aorta. This is the body?s main artery. It connects directly to the heart and carries oxygenated blood from the heart to the body. If this artery wall is damaged, the weakened section of the artery can expand out like a balloon. This is called an aortic aneurysm. Over time, an aneurysm may get larger and weaker, and at risk to burst (rupture). This can cause life-threatening bleeding. ? Legs. If arteries in the legs are clogged and narrowed with plaque, you can have cramping or aching in the buttocks, thighs, or calves when walking. This results from less blood flow to the muscles of the legs. The pain may be relieved with rest. This is called claudication (to limp). It may be a symptom of peripheral artery disease. ? Last Reviewed Date: 2021 00:00:00 ? [id number] [employer]. All rights reserved. This information is not intended as a substitute for professional medical care. Always follow your healthcare professional's instructions. [facility]2024-11-23 23:52:31 The patient is Moderately Stable - Low risk of patient condition declining or worsening The patient's goals for the shift include Pt willnot have chest pain The clinical goals for the shift include anxiety relief [facility] Internal [facility]2024-11-23 14:30:20 The patient is Moderately Stable - Low risk of patient condition declining or worsening The patient's goals for the shift include free from pain The clinical goals for the shift include go home [facility]2024-11-23 04:09:22 The patient is Moderately Stable - Low risk of patient condition declining or worsening Problem: Discharge Planning Goal: Discharge to home or other facility with appropriate resources Outcome: Progressing [facility] Internal [facility]2024-11-22 13:52:05 The patient is Moderately Stable - Low risk of patient condition declining or worsening [facility] Internal [facility]2024-11-22 08:12:38 The patient is Moderately Stable - Low risk of patient condition declining or worsening T [facility]2024-11-22 04:30:56 The patient is Moderately Stable - Low risk of patient condition declining or worsening Problem: Pain - Adult Goal: Verbalizes/displays adequate comfort level or baseline comfort level Outcome: Not Progressing [facility]2024-11-21 15:02:22 The patient is Moderately Stable - Low risk of patient condition declining or worsening The patient's goals for the shift include be free of pain The clinical goals for the shift include hemodynamically stable KAH Boyle RNJohn Peter Smith HospitalVmrsiey1428-08-94 03:54:49 The patient is Moderately Stable - Low risk of patient condition declining or worsening Pain - Adult Verbalizes/displays adequate comfort level or baseline comfort level [facility]2024-11-20 15:10:31 The patient is Moderately Unstable - Medium risk of patient condition declining or worsening The patient's goals for the shift include get better The clinical goals for the shift include pain control, hemodynamic stability. [facility]2024-11-19 21:55:45 The patient is Moderately Stable - Low risk of patient condition declining or worsening The patient's goals for the shift include get better, NPO at midnight The clinical goals for the shift include pain control Problem: Pain - Adult Goal: Verbalizes/displays adequate comfort level or baseline comfort level Outcome: Ongoing Problem: Safety - Adult Goal: Free from fall injury Outcome: Ongoing Problem: Discharge Planning Goal: Discharge to home or other facility with appropriate resources Outcome: Ongoing Problem: Chronic Conditions and Co-morbidities Goal: Patient's chronic conditions and co-morbidity symptoms are monitored and maintained or improved Outcome: Ongoing Flowsheets (Taken 09/16/20241999) Care Plan - Patient's Chronic Conditions and Co-Morbidity Symptoms are Monitored and Maintained or Improved: Monitor and assess patient's chronic conditions and comorbid symptoms for stability, deterioration, or improvement Problem: Neurosensory - Adult Goal: Achieves stable or improved neurological status Outcome: Ongoing Flowsheets (Taken 09/16/20241999) Achieves stable or improved neurological status: Assess for and report changes in neurological status Goal: Achieves maximal functionality and self care Outcome: Ongoing Flowsheets (Taken 09/16/20241999) Achieves maximal functionality and self care: Encourage and assist patient to increase activity and self care with guidance from physical therapy/occupational therapy Problem: Respiratory - Adult Goal: Achieves optimal ventilation and oxygenation Outcome: Ongoing Flowsheets (Taken 09/16/20241999) Achieves optimal ventilation and oxygenation: Assess for changes in respiratory status Problem: Cardiovascular - Adult Goal: Maintains optimal cardiac output and hemodynamic stability Outcome: Ongoing Flowsheets (Taken 09/16/20241999) Maintains optimal cardiac output and hemodynamic stability: Monitor blood pressure and heart rate Monitor urine output and notify Licensed Independent Practitioner for values outside of normal range Goal: Absence of cardiac dysrhythmias or at baseline Outcome: Ongoing Flowsheets (Taken 09/16/20241999) Absence of cardiac dysrhythmias or at baseline: Monitor cardiac rate and rhythm Problem: Musculoskeletal - Adult Goal: Return mobility to safest level of function Outcome: Ongoing Flowsheets (Taken 09/16/20241999) Return mobility to safest level of function: Assess patient stability and activity tolerance for standing, transferring and ambulating with or without assistive devices Assist with transfers and ambulation using safe patient handling equipment as needed Goal: Maintain proper alignment of affected body part Outcome: Ongoing Flowsheets (Taken 09/16/20241999) Maintain proper alignment of affected body part: Support and protect limb and body alignment per provider's orders Goal: Return ADL status to a safe level of function Outcome: Ongoing Flowsheets (Taken 09/16/20241999) Return ADL status to a safe level of function: Administer medication as ordered Assess activities of daily living deficits and provide assistive devices as needed Problem: Infection - Adult Goal: Absence of infection at discharge Outcome: Ongoing Flowsheets (Taken 09/16/20241999) Absence of infection at discharge: Assess and monitor for signs and symptoms of infection Monitor lab/diagnostic results Goal: Absence of infection during hospitalization Outcome: Ongoing Flowsheets (Taken 09/16/20241999) Absence of infection during hospitalization: Assess and monitor for signs and symptoms of infection Monitor lab/diagnostic results Monitor all insertion sites i.e., indwelling lines, tubes and drains Goal: Absence of fever/infection during anticipated neutropenic period Outcome: Ongoing Problem: Metabolic/Fluid and Electrolytes - Adult Goal: Electrolytes maintained within normal limits Outcome: Ongoing Flowsheets (Taken 09/16/20241999) Electrolytes maintained within normal limits: Monitor labs and assess patient for signs and symptoms of electrolyte imbalances Goal: Hemodynamic stability and optimal renal function maintained Outcome: Ongoing Flowsheets (Taken 09/16/20241999) Hemodynamic stability and optimal renal function maintained: Monitor labs and assess for signs and symptoms of volume excess or deficit Monitor intake, output and patient weight Monitor urine specific gravity, serum osmolarity and serum sodium as indicated or ordered Goal: Glucose maintained within prescribed range Outcome: Ongoing Flowsheets (Taken 09/16/20241999) Glucose maintained within prescribed range: Monitor blood glucose as ordered Assess for signs and symptoms of hyperglycemia and hypoglycemia Administer ordered medications to maintain glucose within target range Problem: Hematologic - Adult Goal: Maintains hematologic stability Outcome: Ongoing Flowsheets (Taken 09/16/20241999) Maintains hematologic stability: Assess for signs and symptoms of bleeding or hemorrhage Monitor labs for bleeding or clotting disorders [facility]2024-11-19 19:12:56 Spoke to pharmacist Zaynab and confirmed to continue heparin at current rate of 18.1 units/kg/hr (32.6 ml/hr) next ptt 0030 [facility] Internal MedicineJohn Peter Smith HospitalKcghnod1164-54-76 16:47:11 The patient is Moderately Stable - Low risk of patient condition declining or worsening The patient's goals for the shift include get better [place] [address]-11-18 05:41:03 The patient is Moderately Unstable - Medium risk of patient condition declining or worsening The patient's goals for the shift include get better The clinical goals for the shift include pain control, heparin drip and monitor for s/s of bleeding. [facility] Internal [place] [address]2318-11-17 18:12:03 The patient is Moderately Stable - Low risk of patient condition declining or worsening [place] [address]-11-17 18:11:00 The patient is Moderately Stable - Low risk of patient condition declining or worsening [place] [address]-11-17 18:08:05 The patient is Moderately Stable - Low risk of patient condition declining or worsening [place] [address]-11-17 18:07:05 The patient is Moderately Stable - Low risk of patient condition declining or worsening T [place] [address]-11-17 14:46:27 Admit date 09/10 Admission diagnosis NSTEM Current management: Heparin drip Pending tests None Pending consultants None Current clinical condition Stable Discharge plan not determined. [place] [address]8460-11-17 03:02:29 The patient is Moderately Stable - Low risk of patient condition declining or worsening The patient's goals for the shift include rest The clinical goals for the shift include heparin drip [facility]2024-11-16 15:54:05 The patient is Moderately Stable - Low risk of patient condition declining or worsening The patient's goals for the shift include rest The clinical goals for the shift include heparin drip Over the shift, the patient did not make progress toward the following goals. Barriers to progression include . Recommendations to address these barriers include . [facility]2024-11-15 23:46:24 The patient is Moderately Stable - Low risk of patient condition declining or worsening The patient's goals for the shift include rest The clinical goals for the shift include heparin drip [facility]2024-11-15 15:54:09 The patient is Moderately Stable - Low risk of patient condition declining or worsening The patient's goals for the shift include rest The clinical goals for the shift include heparin drip Over the shift, the patient did not make progress toward the following goals. Barriers to progression include . Recommendations to address these barriers include . [facility]2024-11-15 14:37:27* SAAD Raygoza - 09/12/2024 2:21 PM MOTION PICTURE OPERATOR Continuing Care CAP Coordinator - [place] [employer] [address] [place] [id number] Request Status: Accepted Services: Food Pantry, Nutrition Education Resource for: Adolescent Education, Caregiver Education and Work, Child Education, Food Insecurity, Physical Activity Good RX No address on file Website: www.[email or web address].com Request Status: Accepted Services: Prescription Assistance Resource for: Financial Resource Strain Nurse Health Line No address on file Request Status: Accepted Services: Help Hotlines Resource for: Caregiver Health, Depression, Stress Eduard LinaJose E [facility] ([facility]) - [facility] - Adult Primary Care [address] [facility] [address] Website: [email or web address] Request Status: Accepted Services: Disease Management, Disease Screenings, Health Education, Primary Care Resource for: Adolescent Education, Caregiver Education and Work, Child Education Languages: Tajik, Japanese Cost: Reduced Cost Hours of Operation Sunday -- Sunday 8:00 AM - 6:00 PM Sunday 8:00 AM - 6:00 PM Sunday 8:00 AM - 6:00 PM 8:00 AM - 6:00 PM Sunday 8:00 AM - 5:00 PM Sunday -- [facility]2024-11-15 14:37:27 [facility] HospitalMlabqfj1990-57-51 14:37:27 [facility] HospitalUenilkc5950-62-47 16:00:00 The patient is Moderately Unstable - Medium risk of patient condition declining or worsening The patient's goals for the shift include pain management The clinical goals for the shift include pain management ON PICTURE OPERATOR Internal MedicineMsmoriCHRISTUS Saint [facility] – AtlantaTrolswe7895-12-19 12:21:50* Consultation (Routine) - Pending Review Specialty Diagnoses / Procedures Referred By Contac t Referred To Contact Cardiac Rehabilitation Diagnoses NSTEMI (non-ST elevated myocardial infarction) (CMS/HCC) (HCC) Procedures NM OFFICE/OUTPATIENT NEW HIGH MDM 60-[place] [address] [place] [address] Phone: tel: fax: [facility] (Cardiac Rehab) [address] [facility] [place] [address] Phone: tel: fax: Referral ID Status Reason Start Date Expiration Date Visits Requested Visits Authorized [id number] Pending Review Specialty Services Required 03/09/2025 36 36 KAH [facility] HospitalMcvhonw9136-29-56 12:21:50* [facility] HospitalSebjwup1690-02-13 12:21:50* Audit- C Score Answer Date of Assessment Author 3 09/11/2024 5:47 AM Liliana Levy RN * Intimate Partner Violence Question Answer Date of Assessment Author Within the last year, have y ou been humiliated or emotionally abused in other ways by your partner or ex-partner? No 09/11/2024 5:47 AM Liliana Levy RN Within the last year, have y ou been afraid of your partner or ex-partner? No 09/10/2024 11:00 PM Liliana Levy Ma, RN Within the last year, have y ou been raped or forced to have any kind of sexual activity by your partner or ex-partner? No 09/11/2024 5:47 AM Liliana Levy RN Within the last year, have y ou been kicked, hit, slapped, or otherwise physically hurt by your partner or ex-partner? No 09/11/2024 5:47 AM Liliana Levy RN * * Calculated C-SSRS Risk Score (Lifetime/Recent) Answer Date of Assessment Author No Risk Indicated 09/10/2024 4:00 PM Gera Good RN * Long Suicide Severity Rating Scale (Screener/Recent Self-Report) Question Answer Date of Assessment Author 1. Wish to be (Past 1 Month) No 024 4:00 PM Gera Good RN 2. Non-Specific Active Suici carolina Thoughts (Past 1 Month) No 09/10/2024 4:00 PM Gera Good RN 6. Suicidal Behavior (Lifetime) No 4:00 PM Gera Good RN [facility] HospitalNqsaimc4412-69-20 12:21:50* Ayana Hargrove MD - 09/11/2024 11:41 AM MOTION PICTURE OPERATOR Date of discharge: 09/11/2024 Discharge Diagnosis Principal Problem: NSTEMI (non-ST elevated myocardial infarction) (CMS/HCC) (HCC) Active Problems: HTN (hypertension) HLD (hyperlipidemia) Coronary artery disease involving elim ira coronary artery of elim ira heart with unstable angina pectoris (HCC) Resolved Problems: * No resolved hospital problems. * Hospital Course In brief patient is a 59-year-old male with past medical history significant for hypertension and hyperlipidemia presented to the emergency room with complaint of longstanding history of intermittent chest pain for at least a year may be more, which has been progressively worsening over the last few weeks. In the emergency room patient was found to have abnormal EKG and markedly elevated troponin. Case discussed with cardiology, plan for emergent cardiac catheterization treatment. For now patient started on heparin drip for ACS protocol. Continue with aspirin and high intensity statin. Follow-up echo, lipid panel and A1c level. Further recommendation possible course Patient status post cardiac catheterization which demonstrated multivessel CAD. Cardiology recommending transfer to [facility] for evaluation for CABG Information Provided to Patient/Family I discussed with the patient/family details of the stay. See After Visit Summary which were reviewed and shared with patient/family. Operative Procedures Performed Procedure(s): Left heart cath Percutaneous coronary intervention Pertinent Physical Exam At Time of Discharge Physical Exam: Patient seen and evaluated on the day of discharge. No acute distress. Normal S1-S2. Lungs clear to auscultation bilaterally. No abdominal tenderness to palpation. No lower extremity edema Patient Condition at Discharge Stable Disposition Hospital - Discharge Medications Continued amLODIPine (Norvasc) 10 MG tablet - 1 tablet Daily atorvastatin (Lipitor) 20 MG tablet - 20 mg Daily losartan-hydroCHLOROthiazide (Hyzaar) 100-12.5 MG tablet - 1 tablet Daily Test Results Pending At Discharge Pending Labs Order Current Status Basic Metabolic Panel Collected (09/11/24335) Lipid Panel w/calculated LDL Collected (09/11/24335) Magnesium Level Collected (09/11/24335) Troponin I High Sensitivity (Single Order) Collected (09/11/24335) Issues Requiring Follow-Up Outpatient Follow-Up Cardiac Rehabilitation Phase II Referral 09/10/2024 (Approximate) [facility] (Cardiac Rehab)[phone] [id number] [facility] [id number] Time Spent: I have spent total 35 minutes minutes completing this discharge. ON PICTURE OPERATOR [facility] HospitalBclehec7656-27-91 12:21:50* Bertha Pearson MD - 09/11/2024 10:31 AM MOTION PICTURE OPERATOR Images from the original note were not included. CARDIOLOGY PROGRESS NOTE Subjective: Feels much better, denies any further chest pain Objective: Vitals: 09/11/24 0401 09/11/24 0735 09/11/24 0736 09/11/24 0736 BP: 98/67 Pulse: 63 65 65 Resp: 18 18 Temp: 37 ?C (98.6 ?F) 36.6 ?C (97.8 ?F) 36.6 ?C (97.9 ?F) SpO2: 93% 95% 95% Intake/Output Summary (Last 24 hours) at 09/11/2024 1031 Last data filed at 09/11/2024 0319 Gross per 24 hour Intake 221.04 ml Output 10 ml Net 211.04 ml General: Well nourished, no acute distress speech is clear, affect appropriate HEENT: unremarkable Skin: Warm, dry, no cyanosis, no diaphoresis Neck: without carotid bruit, no mass Back: no mass, non tender Chest/Lungs: Clear to auscultation, no respiratory distress, no wheeze, rales, or rhonchi CV: Normal rate, regular rhythm, normal S1 & S2 Abdomen: Soft, non-tender, non-distended, bowel sounds present, Musculoskeletal/extremity: no tenderness, swelling, peripheral pulses present gu/pelvic/rectal: deferred Neurologic/psych: Awake, Alert and oriented X3, cooperative. Data:Pertinent labs, imaging, and/or procedures were reviewed as available. Medications: [Held by provider] amLODIPine, 10 mg, Oral, Dailyaspirin EC, 81 mg, Oral, Daily Or aspirin, 300 mg, Rectal, Daily atorvastatin, 20 mg, Oral, Daily fluticasone, 2 spray, Each Nostril, Daily heparin, 4,000 Units, Intravenous, Once [Held by provider] hydroCHLOROthiazide, 12.5 mg, Oral, Daily [Held by provider] losartan, 100 mg, Oral, Daily sodium chloride, 10 mL, Intravenous, q12h PRN medications: acetaminophen, heparin, heparin, nitroglycerin, sodiumchloride, sodium chloride ASSESSMENT:Ricardo Hanson is a 59-year-old male admitted on 09/10/2024 after presenting with chest pain. His pertinent problem list includes: Non-ST elevation myocardial infarctionMultivessel CAD Systolic HF ef 20 - 25% Paroxysmal atrial fibrillation with intermittent rapid ventricular response Hypertension Dyslipidemia RECOMMENDATIONS/PLAN:- ECG reviewed demonstrating atrial fibrillation with rapid ventricular response and marked ST segment depression concerning for diffuse ischemia. Subsequent ECG demonstrated resolution of atrial fibrillation with persistent ST segment abnormalities albeit to a lesser extent - Initial troponin value of 2360 pg/mL noted - Heparin drip for NSTEMI and afib - Aspirin load with maintenance therapy of 81 mg daily - hold on additional P2Y12 inhibition for bypass surgery eval Transfer to [facility] - Echocardiogram with eF 20 - 25% - Beta-janeth - High intensity statin therapy. Lipid profile needed. Goal LDL <55 mg/dL - Beta-janeth as above for rate control for atrial fibrillation. The patient's [id number] score is at least 2 (hypertension, potential vascular disease) meriting systemic anticoagulation. Will address antiplatelet requirements with coronary angiogram first before committing to triple therapy - Cardiac rehabilitation on discharge Thank you for allowing us to participate in the care of this patient. Pleasecall with any questions/concerns. Please be advised that this note was created with the assistance of a dictation software. Please interpret appropriately in the context of possible sight effects specialist errors. Bertha Pearson MDNoninvasive Cardiology [facility]2024-11-14 12:21:50Pending Results Scheduled Orders Name Type Priority Associated Diagnoses Order Schedule Basic Metabolic Panel Lab STAT Morning draw (La b) for 3 Days starting 09/11/2024 until 09/13/2024 Magnesium Level Lab STAT Morning d raw (Lab) for 3 Days starting 09/11/2024 until 09/13/2024 Lipid Panel w/calculated LDL Lab STAT Morning draw (L ab) for 1 Days starting 09/11/2024 until 09/11/2024 Complete Blood Count w/Diff and Platelet Lab STAT Morning draw (Lab) for 3 Days starting 09/11/2024 until 09/13/2024, 1 completed Monitor access site and extremity distal to puncture wound Wound Ostomy Routine Until disconti nued until discontinued starting 09/10/2024 Assess cath site pre-sheath removal Wound Ostomy Routine Until discont inued until discontinued starting 09/10/2024 Site Care Wound Ostomy Routine Until discon tinued until discontinued starting 09/10/2024 Complete Blood Count w/Diff and Platelet Lab Routine Morning draw (Lab) for 7 Occurrences starting 09/12/2024 until 09/18/2024 Troponin I High Sensitivity (Single Order) Lab Timed Now then every 6 hours for 2 Days starting 09/10/2024 until 09/12/2024, 2 completed Basic Metabolic Panel Lab Routine Morning draw (La b) for 3 Days starting 09/11/2024 until 09/13/2024 CV Viability Stress Test Cardiac Services Routine Once for 1 Occurrences starting 09/11/2024 until 09/11/2024 Scheduled Referrals Name Type Priority Associated Diagnoses Order Schedule Cardiac Rehabilitation Phase II Referral Outpatient Referral Routine NSTEMI (non-ST elevated myocardial infarction) (CMS/HCC) (HCC) Expected: 09/10/2024 (Approximate), Expires: 03/10/2025 Health Maintenance Due Date Last Done Comments CT Colonography 1965 Colonoscopy 1965 Colorectal Cancer Screening 1965 FIT-DNA 1965 FIT 1965 FOBT 1965 Lipid Panel 1965 Sigmoidoscopy 1965 Annual Physical 1969 Pneumococcal Vaccine: Pediat rics (0 to 5 Years) and At-Risk Patients (6 to 64 Years) (1 of 2 - PCV) 1972 DTaP/Tdap/Td Vaccines (1 - Tdap) 1985 Hepatitis B Vaccines (1 of 3 - 19+ 3-dose series) 1985 Zoster Vaccines (1 of 2) 2016 Influenza Vaccine (#1) 2024 HIB Vaccines Aged Out No longer eligi ble based on patient's age to complete this topic HPV Vaccines Aged Out No longer eligi ble based on patient's age to complete this topic Hepatitis A Vaccines Aged Out No long er eligible based on patient's age to complete this topic IPV Vaccines Aged Out No longer eligi ble based on patient's age to complete this topic Meningococcal Vaccine Aged Out No yanick leticia eligible based on patient's age to complete this topic Rotavirus Vaccines Aged Out No longer eligible based on patient's age to complete this topic [id number] 12:21:50 Diagnosis NSTEMI (non-ST elevated myocardial infarction) ([facility] ([facility]) - Primary Acute myocardial infarction, subendocardial infarction, episode of care unspecified STEMI (ST elevation myocardial infarction) ([facility]) Acute myocardial infarction, unspecified site, episode of care unspecified NSTEMI (non-ST elevated myocardial infarction) ([facility] ([facility]) Acute myocardial infarction, subendocardial infarction, episode of care unspecified Atrial fibrillation with rap id ventricular response ([facility] ([facility]) HTN (hypertension) Unspecified essential hypertension HLD (hyperlipidemia) Other and unspecified hyperlipidemia Coronary artery disease invo lving elim ira coronary artery of elim ira heart with unstable angina pectoris ([facility]) NSTEMI (non-ST elevated myocardial infarction) ([facility]) ([facility]) Acute myocardial infarction, subendocardial infarction, episode of care unspecified [id number] 12:21:50 [id number] 11:45:00 Pt is for transfer to [facility], with Heparin drip; verified with Kassidy CORCORAN; no complaints; report given to Michael Leon RN of [facility];awaiting ambulance ride [facility] Internal MedicineJohn [facility] [id number] 04:35:15 The patient is Moderately Stable - Low risk of patient condition declining or worsening The patient's goals for the shift include less anxiety The clinical goals for the shift include get ready for surgery Over the shift, the patient did not make progress toward the following goals. Barriers to progression include . Recommendations to address these barriers include . [facility]2024-11-13 14:44:00 Associated Order(s): ECG 12 lead (arrhythmia); ECG 12 lead; Critical Care History of Present Illness: Chief Complaint: Patient presents with Chest Pain Patient is a 59-year-old male with a history of HTN and HLD, presenting to the ED with persistent CP. Patient reports experiencing CP that began around 1300 today while lifting a heavy object. He describes the pain as a dull pressure that did not fully subside with rest, unlike his previous episodes of angina-like symptoms. He also felt "winded" during the episode. The pain partially subsided but remained present for about 30 minutes before he decided to seek medical attention. He took 2 aspirin and half of one of his antihypertensive medications prior to arrival. He denies current chest pain but notes that the dull sensation is still present. Patient is on two antihypertensive medications and one lipid-lowering medication, the names of which he cannot recall. He reports taking his medications regularly. He denies any known cardiac conditions but mentions that his symptoms have been treated as a blood pressure issue at his clinic. He believes his symptoms are related to stress and possible coronary artery blockage. He has a history of smoking but has quit. He denies alcohol use and cocaine use, but reports occasional marijuana use. Patient History Past Medical History: Diagnosis Date HLD (hyperlipidemia) 09/10/2024 HTN (hypertension) 09/10/2024 History reviewed. No pertinent surgical history. Family History: Problem Relation Name Age of Onset Heart attack Mother 58 Heart attack Father 58 Diabetes Brother Social History: Tobacco Use Smoking status: Not on file Smokeless tobacco: Not on file Substance Use Topics Alcohol use: Not on file Drug use: Not on file Review of Systems: Review of Systems Physical Exam: Vitals and nursing note reviewed. Constitutional: General: He is not in acute distress. Appearance: He is well-developed. HENT: Head: Normocephalic and atraumatic. Eyes: Conjunctiva/sclera: Conjunctivae normal. Cardiovascular: Rate and Rhythm: Tachycardia present. Rhythm irregular. Heart sounds: No murmur heard. Pulmonary: Effort: Pulmonary effort is normal. No respiratory distress. Breath sounds: Normal breath sounds. Abdominal: Palpations: Abdomen is soft. Tenderness: There is no abdominal tenderness. Musculoskeletal: General: No swelling. Cervical back: Neck supple. Skin: General: Skin is warm and dry. Capillary Refill: Capillary refill takes less than 2 seconds. Neurological: Mental Status: He is alert. Psychiatric: Mood and Affect: Mood normal. Triage Vitals: BP: (!) 135/98, Heart Rate: (!) 132, Temp: 36.9 ?C (98.5 ?F), Resp: 16, SpO2: 99 %, Height: 185.4 cm (6' 1"), Weight: 84 kg (185 lb 3 oz) Last Recorded Vitals: BP: 99/76, Heart Rate: 66, Temp: 36.9 ?C (98.4 ?F), Resp: 12, SpO2: 95 %, Height: 185.4 cm (6' 1"), Weight: 90.1 kg (198 lb 10.2 oz) Procedures Performed: ECG 12 lead (arrhythmia) Performed by: Reji Isabel MD Authorized by: Wyatt Mccarthy MD ECG interpreted by ED Physician in the absence of a vulcanized fiber unit operator: yes Previous ECG: Previous ECG: Unavailable Comments: Afib rvr vent rate 122 no ectopy ibbb interpreted by Dr. Reji Isabel ECG 12 lead Performed by: Reji Isabel MD Authorized by: Wyatt Mccarthy MD ECG interpreted by ED Physician in the absence of a vulcanized fiber unit operator: yes Previous ECG: Previous ECG: Compared to current Comments: Rate 72 afib nsstc no ectopy imprved rate compared to prior interpreted by Dr. eRji Isabel Critical Care Performed by: Reji Isabel MD Authorized by: Reji Isabel MD Critical care provider statement: Critical care time (minutes): 40 Critical care time was exclusive of: Separately billable procedures and treating other patients Critical care was necessary to treat or prevent imminent or life-threatening deterioration of the following conditions: INSTRUCTOR BUSINESS EDUCATION failure or compromise and toxidrome Critical care was time spent personally by me on the following activities: Development of treatment plan with patient or surrogate, discussions with consultants, examination of patient, obtaining history from patient or surrogate, ordering and performing treatments and interventions, ordering and review of laboratory studies, ordering and review of radiographic studies, pulse oximetry, re-evaluation of patient's condition and review of old charts Care discussed with: admitting provider ED Course : Diagnoses as of 09/10/24 2153 NSTEMI (non-ST elevated myocardial infarction) (CMS/HCC) (HCC) Atrial fibrillation with rapid ventricular response (CMS/HCC) (HCC) Disposition: Admit/Observation Medical Decision Making Given patient's presentation and exam findings, the differential diagnosis includes but are not limited to: Dissection, AAA, PTX, PE, ACS, sepsis, pericarditis, abdominal pathology, acute electrolyte or hematologic abnormality, COVID-19 Amount and/or Complexity of Data Reviewed Labs: ordered. ECG/medicine tests: independent interpretation performed. Risk OTC drugs. Prescription drug management. I independently viewed the patient's external pharmacy records. Additional history was obtained from None I independently viewed the patient's external medical records and noted na I independently viewed the patient's radiology imaging and noted: I independently viewed the chest xray no pneumonia, pneumothorax, or other acute findings I independently reviewed the patients labs and noted: Nl lytes markedly elevated trops Social determinants of health that affect care: limited health literacy, underinsured Chronic illnesses impacting care: angina prior tobacco use I d/w Dr. 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 I discussed the case with the hospitalist who accepted the patient for admission [employer] Reji Isabel MD 09/10/240 [facility]2024-05-04 00:00:00 Eduard Fiore [facility]
[2024-09-24] MEDS ORDERED: Magnesium Sulfate 2gm IVPB 2 G/50 ML BAG IV ONE (17:17)
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
[2024-09-24] MEDS ORDERED: MECLIZINE HCL 12.5 MG TAB ONE (19:13)
[2024-09-25 04:39] VITALS: TEMP 99.9
== END 2024-09-25 03:22 ==
LOC: ER 17:06
DX: J96.00 Acute respiratory failure, unspecified whether with hypoxia or hypercapnia (principal); I46.2 Cardiac arrest due to underlying cardiac condition; I49.01 Ventricular fibrillation; I25.2 Old myocardial infarction; Z95.818 Presence of other cardiac implants and grafts
CPT/HCPCS: 31500; 36556; 82947; 92950; 92960; 99291; J0171; J0282; J2310; J3475; J7030; J7060; J8597